=== PATIENT | male | born 1950 | race Caucasian/White ===

== ENCOUNTER 2019-03-01 16:14 | Inpatient (IN) ==
--- NOTE | 2019-03-01 16:58 | Emergency Department Note ---
Disposition Clinical Impression: CHF (congestive heart failure) Qualifiers: Heart failure type: unspecified Heart failure chronicity: unspecified Qualified Code(s): I50.9 - Heart failure, unspecified Disposition: Admitted As Inpatient Condition: Good Referrals: Richard Tran DO [Primary Care Provider] - Forms: ED Satisfaction Letter Time of Disposition: 20:00 SOB HPI - General Chief Complaint: ED Shortness of Breath/Dyspnea Stated Complaint: sob Source: patient, family Limitations: no limitations Nursing Notes Reviewed: Yes Vital Signs Reviewed: Yes - History of Present Illness This is a 69 year-old male with history of HTN, IDDM, hypothyroidism, AF s/p ablation, and morbid obesity. He presents with shortness of breath, worse with exertion, for the past month, worsening for the past week. He says that he feels short of breath with minimal ambulation and sometimes has mild chest tightness with exertion. He also reports worsening bilateral lower extremity edema. He denies any associated fever or cough. He claims compliance with his Coumadin. Denies history of CHF, COPD, tobacco use. No home O2 use. Was 81% on RA in triage, now 100% on 4L. Pt Subjective Complaint: shortness of breath Onset (ago): month(s) (1) Severity: moderate Consistency/Duration: constant, gradually worsening Improves with: rest Worsens with: lying flat, exertion Associated symptoms: Reports: denies other symptoms. Denies: pain with inspiration, fever, cough, lower extremity pain, palpitations Treatment prior to arrival: none Cough present: No - Related Data Home oxygen amount: none Home Medications Medication Instructions Recorded Confirmed Amiodarone 200 mg PO DAILY 02/13/18 03/01/19 Atorvastatin 40 mg PO DAILY 02/13/18 03/01/19 Claritin 10 mg PO DAILY 02/13/18 03/01/19 Coumadin 3 mg PO DAILY 02/13/18 03/01/19 Insulin NPH Human Isophane 100 unit SQ BID 02/13/18 03/01/19 [Novolin N] Levothyroxine [Synthroid] 75 mcg PO DAILY 02/13/18 03/01/19 Losartan Potassium 100 mg PO DAILY 02/13/18 03/01/19 Metoprolol [Lopressor] 25 mg PO BID 02/13/18 03/01/19 Sertraline 150 mg PO DAILY 02/13/18 03/01/19 Coumadin 1.5 mg PO DAILY 03/01/19 03/01/19 Allergies Allergy/AdvReac Type Severity Reaction Status Date / Time cefazolin [From Ancef] Allergy Hives Verified 03/01/19 20:35 rosuvastatin [From Crestor] Allergy Hives Verified 03/01/19 20:35 Sulfa (Sulfonamide Allergy Hives Verified 03/01/19 20:35 Antibiotics) All systems ED: reviewed and negative except as stated. Constitutional: Denies: fever Cardiovascular: Reports: chest pain, dyspnea on exertion, edema. Denies: palpitations Respiratory: Reports: dyspnea Gastrointestinal: Denies: abdominal pain, nausea, vomiting Musculoskeletal: Denies: back pain, neck pain Neurological: Denies: headache, weakness, numbness Past Medical History - Past Medical History Medical history: Reports: atrial fibrillation, diabetes, hyperlipidemia, hypertension Surgical history: Reports: cholecystectomy Psychiatric history: Reports: no psych history - Social History Smoking Status: Never smoker Smokeless Tobacco Status: No Alcohol use: Reports: none Drug use: Reports: none Physical Exam - General Limitations: no limitations General appearance: alert, in no apparent distress - Head Head exam: atraumatic, normocephalic - Eye Eye exam: Present: normal appearance - ENT ENT exam: normal exam - Neck Neck exam: Present: normal inspection - Chest Chest inspection: Present: normal inspection - Respiratory Respiratory exam: Present: normal lung sounds bilaterally. Absent: respiratory distress - Cardiovascular Cardiovascular exam: Present: regular rate, normal rhythm, normal heart sounds - Abdominal Exam Abdominal exam: Present: soft, Non-Tender. Absent: distention - Extremities Exam Extremities exam: Present: pedal edema, other (moderate pitting bilateral lower extremity edema). Absent: calf tenderness - Neurological Exam Neurological exam: Present: alert, oriented X3 - Psychiatric Psychiatric exam: Present: normal affect - Skin Skin exam: Present: warm, dry, intact Course - Reevaluation(s) Reevaluation #1: Patient resting comfortably. Updated patient on test results and plans. Time: 21:21 - Consultations Consultation #1: Reviewed case with Dr. Green and patient accepted for admission. Time: 22:21 Vital Signs Temperature 97.8 F 03/01/19 16:27 Pulse Rate 51 03/01/19 16:27 Respiratory Rate 18 03/01/19 16:27 Blood Pressure 127/68 03/01/19 16:27 O2 Sat by Pulse Oximetry 81 03/01/19 16:27 Temperature 97.8 F 03/01/19 16:27 Pulse Rate 67 03/01/19 21:39 Respiratory Rate 18 03/01/19 21:39 Blood Pressure 145/60 03/01/19 21:39 O2 Sat by Pulse Oximetry 100 03/01/19 21:39 Oxygen Delivery Oxygen Delivery Nasal Cannula Shortness of Breath/Dyspnea - MDM Narrative Medical decision making narrative: This is a 69 year-old male with history of HTN and DM who presents with exertional dyspnea, gradually worsening for weeks, with worsening bilateral lower extremity edema. Occasional chest tightness with exertion. Exam significant for bilateral lower extremity edema. CXR showed CMG, edema, BNP mildly elevated. Suspect symptoms represent CHF (not a previous diagnosis), and I feel that patient would benefit from admission for echo, medical optimization. - Lab Data Lab results reviewed: Yes I reviewed the patient's lab results. Lab results narrative: INR therapeutic. BNP mildly elevated. Result diagrams: 03/01/19 17:48 03/01/19 17:48 Lab Results 03/01/19 03/01/19 03/01/19 Range/Units 17:48 17:48 17:48 WBC 8.4 (4.3-11.1) K/mcL RBC 4.48 (4.19-5.50) M/mcL Hgb 11.3 L (12.9-16.9) g/dL Hct 37.9 (37.5-50.1) % MCV 84.6 (83.0-100.0) fL MCH 25.2 L (28.0-33.3) pg MCHC 29.8 L (31.6-35.5) g/dL RDW 15.4 H (11.5-14.5) % Plt Count 220 (140-400) K/mcL MPV 9.1 L (9.4-12.4) fL Immature Gran % 1.0 (0-4) % Seg Neutrophils % 80.5 % Lymphocytes % 9.8 % Monocytes % 7.1 % Eosinophils % 1.1 % Basophils % 0.5 % Neutrophils # 6.7 (1.6-8.9) K/mcL Lymphocytes # 0.8 (0.6-4.6) K/mcL Monocytes # 0.6 (0.0-1.3) K/mcL Eosinophils # 0.1 (0.0-0.6) K/mcL Basophils # 0.0 (0.0-0.2) K/mcL PT 34.0 H (9.4-12.1) Seconds INR 3.0 Sodium 137 (136-145) mEq/L Potassium 4.9 (3.5-5.1) mEq/L Chloride 101 (98-107) mEq/L Carbon Dioxide 27 (23-29) mEq/L BUN 22 (8-23) mg/dL Creatinine 1.06 (0.70-1.30) mg/dL Est GFR ( Amer) > 60 (> 60) Est GFR (Non-Af Amer) > 60 (> 60) BUN/Creatinine Ratio 21 (6-26) Glucose 141 H (70-105) mg/dL Calculated Osmolality 290 (280-300) Calcium 8.5 L (8.6-10.3) mg/dL Troponin I < 0.03 (< 0.04) ng/mL B-Natriuretic Peptide (Less than 100) pg/mL 03/01/19 Range/Units 17:48 WBC (4.3-11.1) K/mcL RBC (4.19-5.50) M/mcL Hgb (12.9-16.9) g/dL Hct (37.5-50.1) % MCV (83.0-100.0) fL MCH (28.0-33.3) pg MCHC (31.6-35.5) g/dL RDW (11.5-14.5) % Plt Count (140-400) K/mcL MPV (9.4-12.4) fL Immature Gran % (0-4) % Seg Neutrophils % % Lymphocytes % % Monocytes % % Eosinophils % % Basophils % % Neutrophils # (1.6-8.9) K/mcL Lymphocytes # (0.6-4.6) K/mcL Monocytes # (0.0-1.3) K/mcL Eosinophils # (0.0-0.6) K/mcL Basophils # (0.0-0.2) K/mcL PT (9.4-12.1) Seconds INR Sodium (136-145) mEq/L Potassium (3.5-5.1) mEq/L Chloride (98-107) mEq/L Carbon Dioxide (23-29) mEq/L BUN (8-23) mg/dL Creatinine (0.70-1.30) mg/dL Est GFR ( Amer) (> 60) Est GFR (Non-Af Amer) (> 60) BUN/Creatinine Ratio (6-26) Glucose (70-105) mg/dL Calculated Osmolality (280-300) Calcium (8.6-10.3) mg/dL Troponin I (< 0.04) ng/mL B-Natriuretic Peptide 106 H (Less than 100) pg/mL - Radiology Data Radiology results reviewed: Yes I reviewed the patient's radiology results. CXR - CMG, edema. Likely CHF (vs. atx, PNA, etc.) - EKG Data EKG attestation: Yes I reviewed and interpreted this EKG. EKG results narrative: SR at 76. RBBB, LAFB. LAD. No significant ischemic ST/T abnormalities. EKG shows normal: Reports: sinus rhythm Rate: Reports: normal Rhythm: Reports: NSR
[2019-03-01 18:15] LABS: Basophils % 0.5 %; Eosinophils # 0.1 K/mcL (0.0-0.6); Eosinophils % 1.1 %; Hematocrit 37.9 % (37.5-50.1); Hemoglobin 11.3 g/dL (12.9-16.9); Lymphocytes # 0.8 K/mcL (0.6-4.6); Lymphocytes % 9.8 %; Mean Corpuscular HGB Conc 29.8 g/dL (31.6-35.5); Mean Corpuscular Hemoglobin 25.2 pg (28.0-33.3); Mean Corpuscular Volume 84.6 fL (83.0-100.0); Mean Platelet Volume 9.1 fL (9.4-12.4); Monocytes # 0.6 K/mcL (0.0-1.3); Monocytes % 7.1 %; Neutrophils # 6.7 K/mcL (1.6-8.9); Platelet Count 220 K/mcL (140-400); Red Blood Count 4.48 M/mcL (4.19-5.50); Red Cell Distribution Width 15.4 % (11.5-14.5); Segmented Neutrophils % 80.5 %; White Blood Count 8.4 K/mcL (4.3-11.1)
[2019-03-01 19:07] LABS: BUN/Creatinine Ratio 21 (6-26); Blood Urea Nitrogen 22 mg/dL (8-23); Calcium 8.5 mg/dL (8.6-10.3); Carbon Dioxide 27 mEq/L (23-29); Chloride 101 mEq/L (98-107); Glucose 141 mg/dL (70-105); Osmolality,Calculated 290 (280-300); Potassium 4.9 mEq/L (3.5-5.1); Sodium 137 mEq/L (136-145); Troponin I < 0.03 ng/mL (< 0.04); eGFR For African Americans > 60 (> 60); eGFR For Non-African Americans > 60 (> 60)
[2019-03-01] MEDS ORDERED: Furosemide 40 MG/4 ML VIAL IVP ONE (19:58)
[2019-03-01] MEDS ORDERED: Dextrose Gel 15 GM/37.5 ML TUBE PO PRN ×2 (23:01)
[2019-03-01] MEDS ORDERED: *HR* Dextrose 50 % in Water (Syg) 50 ML SYRINGE IVP PRN (23:01)
[2019-03-01] MEDS ORDERED: D5% in Water 1,000 ML IVC PRN (23:01)
--- NOTE | 2019-03-02 01:03 | Internal Med History&Physical ---
Date of Encounter: 03/02/19 Time of Encounter: 00:38 Internal Medicine - H&P: HPI Chief complaint: SOB History of present illness: Mr. Cruz is a 69 year old male hypertension, IDDM, hypothyroidism, morbid obesity and atrial fibrillation status post ablation who presents to the ED with complaints of shortness of breath. Patient states he has been having progressive shortness of breath for the past month or so. Patient decided to come in for evaluation at the request of his daughter but did state that he noted his shortness of breath was worse today. His dyspnea is primarily on exertion noting that walking about 35 feet causes him to get short of breath and increases his heart rate. Patient is not on oxygen. Denies any cough, fever or chills. Denies any orthopnea or PND. Does endorse some swelling in his legs. No reports of chest pain, however, chest tightness was documented in ED note. Patient is a nonsmoker. Does not drink. He has a history of atrial fibrillation status post ablation currently on amiodarone which he states he has been taking for 12 years. He follows with [facility] cardiology every 6 months. Patient denies any history of blood clots. No reports of pleuritic chest pain. Family history of heart disease. On initial assessment patient was afebrile, hemodynamically stable. O2 saturations were 81% on room air. Oxygen bumped up to 100% off to receiving 2 L. Laboratory workup was relatively unremarkable. Negative troponin. BNP 106. EKG shows sinus rhythm with a QRS of 167, right bundle branch block and left anterior fascicular block. Chest x-ray showed enlarged cardiomediastinal silhouette with findings suggestive of pulmonary interstitial edema. Patient received a one-time dose of Lasix 40 mg in the ED. We will admit for further workup of possible CHF exacerbation. Patient will be full code for this admission. Past Med Surg Social Fam HX - Past Medical History Medical history: atrial fibrillation, diabetes, hyperlipidemia, hypertension Additional medical history: Thyroid issues. Psychiatric history: no psych history - Past Surgical History Surgical History: cholecystectomy Additional surgical history: Evacuation of abd hematoma, left thumb revision, coardiac ablation. - Social History Smoking Status: Never smoker Smokeless Tobacco Status: No Alcohol use: none Drug use: none - Family History Mother Adopted: No Family Member Ethnicity: Non- Living Status: Hx Family Cardiac Disorders: Yes Hx Family Respiratory Disorders: Yes Hx Family Cancer: No Hx Family GI Disorders: No Hx Family Endocrine Disorder: No Hx Family Neuromuscular Disorders: No Hx Family Neurologic Disorders: No Hx Family HEENT Disorders: No Hx Family Autoimmune Disorders: No Father Living Status: Still Living Hx Family Cardiac Disorders: Yes Hx Family Respiratory Disorders: No Hx Family Cancer: No Hx Family GI Disorders: Yes Hx Family Endocrine Disorder: No Hx Family Neuromuscular Disorders: No Hx Family Neurologic Disorders: No Hx Family HEENT Disorders: No Hx Family Autoimmune Disorders: No Internal Medicine - H&P: Meds Amiodarone 200 mg PO DAILY 02/13/18 [History] Atorvastatin 40 mg PO DAILY 02/13/18 [History] Claritin 10 mg PO DAILY 02/13/18 [History] Coumadin 3 mg PO DAILY 02/13/18 [History] Insulin NPH Human Isophane [Novolin N] 100 unit SQ BID 02/13/18 [History] Levothyroxine [Synthroid] 75 mcg PO DAILY 02/13/18 [History] Losartan Potassium 100 mg PO DAILY 02/13/18 [History] Metoprolol [Lopressor] 25 mg PO BID 02/13/18 [History] Sertraline 150 mg PO DAILY 02/13/18 [History] Coumadin 1.5 mg PO DAILY 03/01/19 [History] Allergy/AdvReac Type Severity Reaction Status Date / Time cefazolin [From Ancef] Allergy Hives Verified 03/01/19 20:35 rosuvastatin [From Crestor] Allergy Hives Verified 03/01/19 20:35 Sulfa (Sulfonamide Allergy Hives Verified 03/01/19 20:35 Antibiotics) All Systems PM: A 10-system review of systems was performed and is negative for pertinent findings except as documented above in the HPI. - Constitutional Constitutional: no chills, no fever(s), no night sweats - EENT Eyes: no change in vision, no discharge, no pain, no photophobia Ears: no ear discharge, no ear pain, no tinnitus Nose, mouth and throat: no dysphagia, no nasal discharge, no neck pain, no sore throat - Cardiovascular Cardiovascular ROS IM: no chest pain, no diaphoresis, no dyspnea, no lightheadedness, no palpitations, no syncope - Respiratory Respiratory: no cough, no dyspnea, no wheezing, no excessive phlegm production - Gastrointestinal Gastrointestinal: no abdominal pain, no diarrhea, no hematemesis, no hematochezia, no melena, no nausea, no vomiting - Musculoskeletal Musculoskeletal ROS IM: no numbness, no tingling - Integumentary Integumentary IM: no rash, no unusual bruising - Neurological Neurological ROS: no confusion, no convulsions, no focal weakness, no numbness, no tingling, no tremor(s) - Hematologic/Lymphatic Hematologic/Lymphatic: no easy bruising - Constitutional Vitals: Temp Pulse Resp BP Pulse Ox 98.1 F 64 15 145/70 90 03/01/19 23:50 03/01/19 23:50 03/01/19 23:50 03/01/19 23:50 03/01/19 23:50 Exam: General: Alert and oriented 3 lying in bed in no acute distress Skin: Evidence of venous stasis on the lower extremities HEENT:EOM, pupils equal, round and reactive. Cardiovascular:Normal S1 & S2, 3/6 systolic murmur best appreciated in the second right intercostal space Lungs: Bibasilar crackles appreciated Abdomen:Soft, non-tender, no rigidity. Extremities:No deformity, trace lower extremity edema bilaterally. Neurological:Normal cognition and motor skills. Pulses:Carotid and radial pulses normal +2. Rest of the physical exam is non contributory Internal Med - H&P Results - Labs CBC & Chem 7: 03/02/19 00:47 03/02/19 00:47 Labs: Short CBC 03/01/19 Range/Units 17:48 WBC 8.4 (4.3-11.1) K/mcL Hgb 11.3 L (12.9-16.9) g/dL Hct 37.9 (37.5-50.1) % Plt Count 220 (140-400) K/mcL Neutrophils # 6.7 (1.6-8.9) K/mcL BMP 03/01/19 17:48 Sodium 137 Potassium 4.9 Chloride 101 Carbon Dioxide 27 BUN 22 Creatinine 1.06 Glucose 141 H Calcium 8.5 L Cardiac Enzymes 03/01/19 Range/Units 17:48 Troponin I < 0.03 (< 0.04) ng/mL - Impressions ITS Impressions Chest X-Ray 03/01/19 16:53 IMPRESSION: Enlarged cardiomediastinal silhouette with findings suggestive of pulmonary interstitial edema. Correlation with volume status is recommended. Bibasilar pulmonary opacities may represent combination of atelectasis and/or edema. Early pneumonia or aspiration is not excluded. Recommend short interval follow-up chest radiograph. D/ / 03/01/2019 17:16:17 Ochoa Obando MD / Gerri Garibay Interpreting Provider: Ochoa Obando MD - Assessment and Plan (1) Shortness of breath Current Visit: Yes Status: Deleted Assessment and plan: Patient presenting with progressive shortness of breath on exertion. Found to have a O2 saturation of 81% on room air which increased to 100% on 4 L. Patient currently on 2 saturating in the mid 90s. Laboratory workup notable for a mildly elevated BNP in the setting of morbid obesity. EKG showing sinus rhythm with evidence of bifascicular block. Patient did not endorse significant history of chest pain. Initial troponin negative. Chest x-ray concerning for cardiomegaly and pulmonary vascular congestion. Bibasilar crackles appreciated on lung examination with trace lower extremity edema. Murmur was appreciated on cardiac exam. Etiology possibly multifactorial. Differential includes new ons et CHF exacerbation. Valvulopathy given murmur. Underlying CAD. Given patient's body habitus cannot this exclude obesity hypoventilation syndrome. Furthermore, patient has been on amiodarone for 12 years and therefore amiodarone-induced pulmonary toxicity cannot be discounted. Patient however d oes appear to be followed up closely at [facility]. Patient received one-time dose of Lasix 40 mg IV push. He reports that he is feeling somewhat better after getting up and going to the bathroom without any issues. -Continue O2 support -Trend troponin -Continue management and workup for possible new onset CHF exacerbation -Echocardiogram for CHF and assessment of valvular disease given patient's murmu r -Consider high-resolution CT scan of the chest for evaluation of lung parenchyma in the setting of chronic amiodarone use (2) CHF (congestive heart failure) Current Visit: Yes Status: Acute Assessment and plan: Concern for new onset congestive heart failure given patient's history and objective findings. -Continue strict I's and O's; daily weights -Fluid restrict to 1.5 L per day -We will continue with IV Lasix 20 mg twice a day and monitor kidney function -Echocardiogram -Consider cardiology consult Qualifiers: Heart failure type: unspecified Heart failure chronicity: unspecified Qualified Code(s): I50.9 - Heart failure, unspecified (3) Type 2 diabetes mellitus Current Visit: Yes Status: Acute Assessment and plan: Blood glucose checks. Diabetic diet. Sliding scale insulin plus basal dose. Qualifiers: Diabetes mellitus superintendent terminal insulin use: with superintendent terminal use Diabetes mellitus complication status: without complication Qualified Code(s): E11.9 - Type 2 diabetes mellitus without complications; Z79.4 - USP (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 (4) Status post ablation of atrial fibrillation Current Visit: Yes Status: Acute Assessment and plan: History of atrial fibrillation status post ablation currently on amiodarone for rhythm control and warfarin for anticoagulation. -Continue beta izabela and amiodarone for now. -Continue warfarin with pharmacy to dose. - Time Spent With Patient Total time spent is greater than 50% in coordination of care (as documented) at patient's floor/unit and/or counseling patient:
[2019-03-02] MEDS: Insulin LISPRO 300 UNITS/3 ML VIAL SQ SCH ×4 (01:05→17:53)
[2019-03-02] MEDS: Insulin DETEMIR 100 UNIT/ML X5UNITS SQ SCH ×2 (01:19→20:48)
[2019-03-02 01:20] LABS: Basophils % 0.4 %; Eosinophils # 0.1 K/mcL (0.0-0.6); Eosinophils % 1.3 %; Hematocrit 39.8 % (37.5-50.1); Hemoglobin 11.8 g/dL (12.9-16.9); Immature Granulocytes % 0.8 % (0-4); Lymphocytes # 0.9 K/mcL (0.6-4.6); Lymphocytes % 9.8 %; Mean Corpuscular HGB Conc 29.6 g/dL (31.6-35.5); Mean Corpuscular Hemoglobin 25.4 pg (28.0-33.3); Mean Corpuscular Volume 85.6 fL (83.0-100.0); Mean Platelet Volume 9.1 fL (9.4-12.4); Monocytes # 0.6 K/mcL (0.0-1.3); Monocytes % 6.7 %; Neutrophils # 7.3 K/mcL (1.6-8.9); Platelet Count 227 K/mcL (140-400); Red Blood Count 4.65 M/mcL (4.19-5.50); Red Cell Distribution Width 15.4 % (11.5-14.5)
[2019-03-02 01:27] LABS: Prothrombin Time 34.1 Seconds (9.4-12.1)
[2019-03-02] MEDS ORDERED: *HR* Heparin 5,000 UNIT/ML VIAL SQ SCH (01:30)
[2019-03-02 02:33] LABS: Alanine Aminotransferase 12 Units/L (7-52); Albumin 3.6 g/dL (3.5-5.7); Albumin/Globulin Ratio 1.1 (1.1-2.2); Alkaline Phosphatase 81 Units/L (34-104); Aspartate Amino Transferase 15 Units/L (13-39); BUN/Creatinine Ratio 20 (6-26); Bilirubin,Total 0.8 mg/dL (0.3-1.0); Blood Urea Nitrogen 21 mg/dL (8-23); Calcium 8.9 mg/dL (8.6-10.3); Carbon Dioxide 32 mEq/L (23-29); Chloride 98 mEq/L (98-107); Chol/HDL Ratio 2.7 (0-4.9); Cholesterol 89 mg/dL (< 200); Globulin 3.3 g/dL (2.4-3.5); Glucose 145 mg/dL (70-105); HDL Cholesterol 33 mg/dL (40-59); LDL Cholesterol,Calculated 41 mg/dL (0-99); Magnesium 1.6 mg/dL (1.6-2.6); Osmolality,Calculated 294 (280-300); Potassium 4.5 mEq/L (3.5-5.1); Sodium 139 mEq/L (136-145); Thyroid Stimulating Hormone 3.711 mcIU/mL (0.340-5.600); Total Protein 6.9 g/dL (6.4-8.9); Triglycerides 77 mg/dL (< 150); eGFR For African Americans > 60 (> 60); eGFR For Non-African Americans > 60 (> 60)
[2019-03-02 07:15] LABS: Prothrombin Time 33.7 Seconds (9.4-12.1)
[2019-03-02] MEDS: *HR* Amiodarone 200 MG TABLET PO SCH (09:01)
[2019-03-02] MEDS: Furosemide 20 MG/2 ML VIAL IVP SCH ×2 (09:02→17:53)
[2019-03-02] MEDS ORDERED: Perflutren Lipid Microsphere 1.3 ML in 0.9 % Sodium Chloride 8.7 ML IVP ONE (11:46)
--- NOTE | 2019-03-02 13:15 | Internal Med Progress Note ---
Hospitalist Progress Note - Encounter Date of Encounter: 03/02/19 Time of Encounter: 09:25 - Subjective Interval History: No events overnight. Patient had no chest pain, palpitation or shortness of breath. Patient denied fever or chills or night sweats. Patient has no nausea/vomiting or abdominal pain - Exam Vitals: Temp Pulse Resp BP Pulse Ox 97.9 F 54 17 130/55 94 03/02/19 11:23 03/02/19 11:23 03/02/19 11:23 03/02/19 11:23 03/02/19 11:23 Exam: General: Alert and oriented 3 lying in bed in no acute distress Skin: Evidence of venous stasis on the lower extremities with skin discoloration HEENT:EOM, pupils equal, round and reactive. Cardiovascular:Normal S1 & S2, systolic murmur higher on the left second sternal border. Lungs: Bibasilar crackles. Abdomen:Soft, non-tender, no rigidity. Extremities:No deformity, trace lower extremity edema bilaterally. Neurological:Normal cognition and motor skills. Pulses:Carotid and radial pulses normal +2. Rest of the physical exam is non contributory - Assessment and Plan (1) CHF (congestive heart failure) Current Visit: Yes Status: Acute (2) Type 2 diabetes mellitus Current Visit: Yes Status: Acute (3) Status post ablation of atrial fibrillation Current Visit: Yes Status: Acute (4) Morbid obesity with BMI of 50.0-59.9, adult Current Visit: Yes Status: Acute (5) DVT prophylaxis Current Visit: Yes Status: Acute - Summary of Assessment and Plan Summary of Assessment and Plan: 69-year-old female with history of IDDM, hypothyroidism, HTN, morbid obesity, atrial fibrillation status post ablation on amiodarone and Coumadin who came into the hospital with a few days of dyspnea mainly on exertion. Patient was found to be in heart failure and pulmonary edema at presentation. His symptoms are managed as following: Acute decompensated heart failure: - likely from diet non-complaince as he eats a lot of salt. less likely due to underlying arrhythmia. - EKG, sinus rhythm, RBBB, LAFB. Troponin 2 negative. BNP 106. - He was started on Lasix 20 mg IV twice a day with significant improvement in his symptoms. - Echo is pending, cardiology was consulted, monitor I/O, daily weight, continue cardiac diet. Hx of atrial fibrillation s/p ablation: - On amiodarone and Lopressor for rate control - On Coumadin for anticoagulation. INR is therapeutic - Continue above medication IDDM: - Checked with pharmacy and then shortly about his home doses. As per ou tpatient records, he is on 70/30 regimen with 55 units in the morning and 35 units at night. Pharmacy committed to keep doses at today's and managed on daily basis. - ADA, bgm TID ACHS. Morbid obesity with BMI of 54: - Lifestyle modification including diet was discussed with the patient. Hypothyroidism: Continue levothyroxine HTN: Continue losartan DVT prophylaxis: On Coumadin Diet: Cardiac diet, diabetic diet Disposition: Inpatient, anticipating discharge on Monday - Time Spent with Patient Total time spent is greater than 50% in coordination of care (as documented) at patient's floor/unit and/or counseling patient: Plan of Care Discussed with: patient Internal Medicine: Result - Labs CBC & Chem 7: 03/02/19 00:47 03/02/19 00:47 Labs: Short CBC 03/01/19 03/02/19 Range/Units 17:48 00:47 WBC 8.4 9.0 (4.3-11.1) K/mcL Hgb 11.3 L 11.8 L (12.9-16.9) g/dL Hct 37.9 39.8 (37.5-50.1) % Plt Count 220 227 (140-400) K/mcL Neutrophils # 6.7 7.3 (1.6-8.9) K/mcL BMP 03/01/19 03/02/19 17:48 00:47 Sodium 137 139 Potassium 4.9 4.5 Chloride 101 98 Carbon Dioxide 27 32 H BUN 22 21 Creatinine 1.06 1.05 Glucose 141 H 145 H Calcium 8.5 L 8.9 Cardiac Enzymes 03/01/19 03/02/19 Range/Units 17:48 00:47 Troponin I < 0.03 < 0.03 (< 0.04) ng/mL Liver Function 03/02/19 Range/Units 00:47 Total Bilirubin 0.8 (0.3-1.0) mg/dL AST 15 (13-39) Units/L ALT 12 (7-52) Units/L Alkaline Phosphatase 81 (34-104) Units/L Albumin 3.6 (3.5-5.7) g/dL - ABG Interpretation ABG results: PT/INR, D-dimer PT 33.7 Seconds (9.4-12.1) H 03/02/19 06:39 - Impressions Impressions Chest X-Ray 03/01/19 16:53 IMPRESSION: Enlarged cardiomediastinal silhouette with findings suggestive of pulmonary interstitial edema. Correlation with volume status is recommended. Bibasilar pulmonary opacities may represent combination of atelectasis and/or edema. Early pneumonia or aspiration is not excluded. Recommend short interval follow-up chest radiograph. D/ / 03/01/2019 17:16:17 Ochoa Obando MD / Gerri Garibay Interpreting Provider: Ochoa Obando MD Consult Discharge Plan - Plan Referrals: Richard Tran DO [Primary Care Provider] - _ (1) CHF (congestive heart failure) Qualifiers: Heart failure type: unspecified Heart failure chronicity: unspecified Qualified Code(s): I50.9 - Heart failure, unspecified (2) Type 2 diabetes mellitus Qualifiers: Diabetes mellitus supervisor long goods insulin use: with shelter use Diabetes mellitus complication status: without complication Qualified Code(s): E11.9 - Type 2 diabetes mellitus without complications; Z79.4 - long term acute care registered nurse (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
--- NOTE | 2019-03-02 17:01 | Cardiology Consult Note ---
<Mahnaz Kirk - Last Filed: 03/02/19 16:57> Date of Encounter: 03/02/19 Time of Encounter: 14:00 Assessment and Plan (1) Diastolic CHF Current Visit: Yes Status: Acute Per cardiology: -Reports progressive shortness of breath at home. -Chest x-ray with pulmonary edema. -BNP 106, however suspect low due to obesity. -ON IV lasix, currently net negative 900ml. -Remains volume overloaded on exam and still requiring O2, not normally on at home. -TTE with LVEF preserved, no visualized wall motion abnormalities noted. -Agree with IV diuresis. -Strict i/os, fluid restriction, daily weights. -CHF education reviewed with patient. Qualifiers: Heart failure chronicity: acute Qualified Code(s): I50.31 - Acute diastolic (congestive) heart failure (2) PAF (paroxysmal atrial fibrillation) Current Visit: Yes Status: Acute Per cardiology: -Known PAF s/p ablation. -Follows with [facility]. -On amiodarone, BB, and coumadin for anticoagulation. -SR per ECG. -Continue current medical regimen. 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 Discussion w patient/family: The assessment and plan as outlined above was discussed with the patient and/or family members who expressed understanding and agreement. All questions were answered. Thank you for involving us in the care of your patient. Please call with any questions. Discussed and reviewed with . History of Present Illness Consult date: 03/02/19 Requesting physician: Taras Burgess Consult reason: a.fib, CHF Chief complaint: shortness of breath History of present illness: Mr. Cruz is a 69 year old male with a relevant past medical history of a.fib s/p ablation follows with [facility] Cardiology, DM, HTN, thyroid disease, DENNIS, obesity, GERD, who presented to [facility] with complaints of progressive shortness of breath for one month. Patient states symptoms became so severe, he was unable to walk to bathroom. Denies weight gain. Reports chronic lower extremity edema. Denies palpitations, fluttering. Denies chest pain. Patient noted to have pulmonary edema on chest x-ray, was given IV lasix. Patient reports current symptom improvement, however not back at baseline. Still currently requiring O2, not normally on at home. Past Med Surg Social Fam HX - Past Medical History Attestation: Yes The following information was validated with the patient. Source: patient, old records reviewed Medical history: atrial fibrillation, diabetes, hyperlipidemia, hypertension Additional medical history: Thyroid issues, left thumb amputation Psychiatric history: no psych history - Past Surgical History Surgical History: cholecystectomy Additional surgical history: Evacuation of abd hematoma, left thumb revision, coardiac ablation. - Social History Smoking Status: Never smoker Smokeless Tobacco Status: No Alcohol use: none Drug use: none - Family History Mother Adopted: No Family Member Ethnicity: Non- Living Status: Hx Family Cardiac Disorders: Yes Hx Family Respiratory Disorders: Yes Hx Family Cancer: No Hx Family GI Disorders: No Hx Family Endocrine Disorder: No Hx Family Neuromuscular Disorders: No Hx Family Neurologic Disorders: No Hx Family HEENT Disorders: No Hx Family Autoimmune Disorders: No Father Living Status: Still Living Hx Family Cardiac Disorders: Yes Hx Family Respiratory Disorders: No Hx Family Cancer: No Hx Family GI Disorders: Yes Hx Family Endocrine Disorder: No Hx Family Neuromuscular Disorders: No Hx Family Neurologic Disorders: No Hx Family HEENT Disorders: No Hx Family Autoimmune Disorders: No Medications and Allergies Amiodarone 200 mg PO DAILY 02/13/18 [History] Atorvastatin 40 mg PO DAILY 02/13/18 [History] Claritin 10 mg PO DAILY 02/13/18 [History] Coumadin 3 mg PO DAILY 02/13/18 [History] Insulin NPH Human Isophane [Novolin N] 100 unit SQ BID 02/13/18 [History] Levothyroxine [Synthroid] 75 mcg PO DAILY 02/13/18 [History] Losartan Potassium 100 mg PO DAILY 02/13/18 [History] Metoprolol [Lopressor] 25 mg PO BID 02/13/18 [History] Sertraline 150 mg PO DAILY 02/13/18 [History] Coumadin 1.5 mg PO DAILY 03/01/19 [History] Allergy/AdvReac Type Severity Reaction Status Date / Time cefazolin [From Ancef] Allergy Hives Verified 03/01/19 20:35 rosuvastatin [From Crestor] Allergy Hives Verified 03/01/19 20:35 Sulfa (Sulfonamide Allergy Hives Verified 03/01/19 20:35 Antibiotics) All Systems Review: The remainder of the systems were reviewed and are negative - Cardiovascular Cardiovascular: as per HPI, dyspnea at rest, dyspnea on exertion Physical Examination Vital Signs, Last 4 Hours Temp Pulse Resp BP Pulse Ox 03/02/19 16:48 98 F 61 16 119/45 96 General: Conversant, No Apparent Distress HEENT: Atraumatic, Normocephaly, Mucus Membranes Moist Neck: No JVD, Normal carotid pulses Cardiac: Reg Rate and Rhythm, Normal S1 and S2, No Murmur Lungs: Other (Lung sounds diminished throughout. ) Neuro: Alert and responsive, No focal deficits noted Abdomen: Soft, Non-Tender Skin: No rashes noted on visualized skin Musculoskeletal: No Chest Wall Tenderness Extremities: No Clubbing, No Cyanosis, Normal Pulses, Other (Moderate lower extremity edema noted. ) Results 03/02/19 00:47 03/02/19 00:47 Lab Results Impressions Chest X-Ray 03/01/19 16:53 IMPRESSION: Enlarged cardiomediastinal silhouette with findings suggestive of pulmonary interstitial edema. Correlation with volume status is recommended. Bibasilar pulmonary opacities may represent combination of atelectasis and/or edema. Early pneumonia or aspiration is not excluded. Recommend short interval follow-up chest radiograph. D/ / 03/01/2019 17:16:17 Ochoa Obando MD / Gerri Garibay Interpreting Provider: Ochoa Obando MD Echocardiogram 03/01/19 23:00 Impressions: Technically sub-optimal due to body habitus. Definity echo contrast was used. LVEF 60%. Indeterminate diastolic function. Right ventricular structure and function not well visualized. Mild aortic stenosis by Doppler. Mild mitral regurgitation. No pulmonary hypertension by TR signal obtained. Left Ventricular Wall Motion: Rest Echo Findings The mid inferior lateral and basal inferior lateral rowley were not visualized. All other wall segments showed normal motion. Findings: Study Quality * Technically sub-optimal due to body habitus. ECG Findings * Atrial fibrillation. Left Ventricle * Definity echo contrast was used. * Indeterminate diastolic function. * LVEF 60%. * LV chamber size and wall thickness appear grossly normal. Right Ventricle * Right ventricular structure and function not well visualized. Left Atrium * Moderately dilated left atrium. Right Atrium * Normal right atrial size. Aortic Valve * No aortic regurgitation. * Aortic valve not well visualized. * Mild aortic stenosis by Doppler. Mitral Valve * Mitral valve not well visualized. * No mitral stenosis. * Mild mitral regurgitation. * Mild mitral annular calcification Tricuspid Valve * Tricuspid valve not well visualized. * Trace tricuspid regurgitation. Pulmonic Valve * Pulmonic valve is not well visualized. * No pulmonic stenosis. * No pulmonic regurgitation. Pulmonary Artery * Pulmonary artery not well visualized. Aorta * Not visualized. Pericardium * There is no pericardial effusion present. Interatrial Septum * Interatrial septum not well evaluated. IVC * The IVC is not well evaluated. Active Medications Amiodarone HCl (Cordarone) 200 mg PO DAILY [facility] Stop: 09/01/19 09:01 Last Admin: 03/02/19 09:01 Dose: 200 mg Documented by: Atorvastatin Calcium (Lipitor) 40 mg PO DAILY [facility] Stop: 09/01/19 09:01 Last Admin: 03/02/19 09:01 Dose: 40 mg Documented by: Dextrose/Water (Dextrose 50% (Syg)) 25 ml IVP AD PRN PRN Reason: Hypoglycemia Stop: 08/31/19 23:02 Furosemide (Lasix) 20 mg IVP BIDDIURETIC [facility] Stop: 09/01/19 08:01 Last Admin: 03/02/19 09:02 Dose: 20 mg Documented by: Glucagon (Glucagen) 1 mg IM ONCE PRN PRN Reason: Hypoglycemia Stop: 08/31/19 23:02 Glucose (Gluctose) 15 gm PO ONCE PRN PRN Reason: Hypoglycemia Stop: 08/31/19 23:02 Glucose (Gluctose) 30 gm PO ONCE PRN PRN Reason: Hypoglycemia Stop: 08/31/19 23:02 Dextrose (Dextrose 5%) 1,000 mls @ 100 mls/hr IVC .Q10H PRN PRN Reason: HYPOGLYCEMIA Stop: 08/31/19 23:02 Insulin Detemir (Levemir) 28 unit 0.15 unit/kg (28 unit) SQ HS [facility] Stop: 08/31/19 23:16 Last Admin: 03/02/19 01:19 Dose: 28 unit Documented by: Insulin Human Lispro (Humalog) 0 units SQ TIDAC [facility]; Protocol Stop: 08/31/19 23:16 Last Admin: 03/02/19 13:07 Dose: 2 units Documented by: Levothyroxine Sodium (Synthroid) 75 mcg PO 0630 [facility] Stop: 09/01/19 06:31 Last Admin: 03/02/19 05:39 Dose: 75 mcg Documented by: Losartan Potassium (Cozaar) 100 mg PO DAILY [facility] Stop: 09/01/19 09:01 Last Admin: 03/02/19 09:01 Dose: 100 mg Documented by: Metoprolol Tartrate (Lopressor) 25 mg PO BID [facility] Stop: 09/01/19 09:01 Last Admin: 03/02/19 09:01 Dose: 25 mg Documented by: Sertraline HCl (Zoloft) 150 mg PO DAILY [facility] Stop: 09/01/19 09:01 Last Admin: 03/02/19 09:01 Dose: 150 mg Documented by: Warfarin Sodium (Coumadin Perpt) 1 each PO DAILY@1800 PRN PRN Reason: SEE COMMENTS Stop: 09/01/19 18:01 Warfarin Sodium (Coumadin) 1 mg PO 1800 [facility] Stop: 03/02/19 18:01 Laboratory Tests 03/01/19 03/02/19 03/02/19 17:48 00:47 00:47 Hgb 11.8 L INR Creatinine Troponin I < 0.03 < 0.03 03/02/19 03/02/19 00:47 00:47 Hgb INR 3.0 Creatinine 1.05 Troponin I - Imaging and Cardiology Chest Xray: report reviewed Echo: report reviewed - EKG Interpretation EKG results cardiology: personally reviewed (ECG with SR, HR 76, RBBB noted.), other (Telemetry reveiwed with average HR previous 12 hours noted to be 63, SR. Frequent PACs noted.) Consult Discharge Plan - Plan Referrals: Richard Tran DO [Primary Care Provider] - <Divina Soto - Last Filed: 03/02/19 17:27> Date of Encounter: 03/02/19 - Attending Attestation I examined this patient and my medical decision-making was reviewed with the LASER BEAM MACHINE OPERATOR. I agree with the documented findings, disposition and treatment plan as described. Mr. Cruz presents with acute LV diastolic CHF exacerbation. Recommend IV diuresis, compression stockings, strick I/O's and weights. Has upcoming sleep study testing. On Amio for PAF, in NSR on anticoagulation. Assessment and Plan Discussion w patient/family: The assessment and plan as outlined above was discussed with the patient and/or family members who expressed understanding and agreement. All questions were answered. Thank you for involving us in the care of your patient. Please call with any questions. History of Present Illness History of present illness: Mr. Cruz is a 69 year old male All Systems Review: The remainder of the systems were reviewed and are negative Physical Examination Vital Signs, Last 4 Hours Temp Pulse Resp BP Pulse Ox 03/02/19 16:48 98 F 61 16 119/45 96 Results 03/02/19 00:47 03/02/19 00:47 Lab Results 03/01/19 03/01/19 03/01/19 17:48 17:48 17:48 WBC 8.4 Hgb 11.3 L Hct 37.9 Plt Count 220 INR 3.0 Sodium 137 Potassium 4.9 Chloride 101 Carbon Dioxide 27 BUN 22 Creatinine 1.06 Glucose 141 H Calcium 8.5 L Magnesium Total Bilirubin AST ALT Alkaline Phosphatase Troponin I < 0.03 B-Natriuretic Peptide TSH 03/01/19 03/02/19 03/02/19 17:48 00:47 00:47 WBC 9.0 Hgb 11.8 L Hct 39.8 Plt Count 227 INR Sodium Potassium Chloride Carbon Dioxide BUN Creatinine Glucose Calcium Magnesium Total Bilirubin AST ALT Alkaline Phosphatase Troponin I < 0.03 B-Natriuretic Peptide 106 H TSH 03/02/19 03/02/19 03/02/19 00:47 00:47 06:39 WBC Hgb Hct Plt Count INR 3.0 3.0 Sodium 139 Potassium 4.5 Chloride 98 Carbon Dioxide 32 H BUN 21 Creatinine 1.05 Glucose 145 H Calcium 8.9 Magnesium 1.6 Total Bilirubin 0.8 AST 15 ALT 12 Alkaline Phosphatase 81 Troponin I B-Natriuretic Peptide TSH 3.711
[2019-03-02] MEDS ORDERED: *HR* Warfarin 1 MG TABLET PO ONE (18:00)
[2019-03-02] MEDS ORDERED: Warfarin perPT PO PRN (18:00)
[2019-03-02] MEDS ORDERED: Saline Nasal Spray 44 ML BOTTLE NS PRN (18:10)
[2019-03-03 08:10] LABS: INR 2.6; Prothrombin Time 29.5 Seconds (9.4-12.1)
[2019-03-03 08:21] LABS: BUN/Creatinine Ratio 21 (6-26); Blood Urea Nitrogen 24 mg/dL (8-23); Calcium 8.8 mg/dL (8.6-10.3); Carbon Dioxide 35 mEq/L (23-29); Chloride 95 mEq/L (98-107); Glucose 162 mg/dL (70-105); Osmolality,Calculated 294 (280-300); Sodium 138 mEq/L (136-145); eGFR For African Americans > 60 (> 60); eGFR For Non-African Americans > 60 (> 60)
[2019-03-03] MEDS: Insulin LISPRO 300 UNITS/3 ML VIAL SQ SCH ×3 (08:52→17:08)
[2019-03-03] MEDS: Furosemide 20 MG/2 ML VIAL IVP SCH ×2 (08:53→17:07)
--- NOTE | 2019-03-03 09:28 | Electrocardiograph Report ---
[facility] Test Date: 2019-03-01 Pat Name: Dre Cruz Department: EXAM6 Room: 2NE27 Gender: M Associate Curator: : 1950 Requested By: Cezar Sheldon Order Number: [id number] Reading MD: Jacek Urias Measurements Intervals [place] Rate: 76 P: -10 PA: 191 QRS: -84 QRSD: 167 T: 32 QT: 464 QTc: 522 Interpretive Statements Sinus rhythm RBBB and LAFB Electronically Signed On 03-03-2019 9:26:48 EDT by Jacek Urias
--- NOTE | 2019-03-03 11:32 | Cardiology Progress Note ---
Date of Encounter: 03/03/19 Time of Encounter: 10:00 Assessment and Plan (1) Diastolic CHF Current Visit: Yes Status: Acute Per cardiology: -Reports progressive shortness of breath at home. -Chest x-ray with pulmonary edema. -BNP 106, however suspect low due to obesity. -ON IV lasix, currently net negative 2500ml -Remains volume overloaded on exam and still requiring O2, not normally on at home. -TTE with LVEF preserved, no visualized wall motion abnormalities noted. -Agree with IV diuresis. Recommend at least 24 more hours of diuresis. If eu volemic, then transition to po. Recommend 20mg BID PO at discharge. -Strict i/os, fluid restriction, daily weights. -CHF education reviewed with patient. -Cardiology will sign off, recommend close outpatient follow up with primary cardiology. Qualifiers: Heart failure chronicity: acute Qualified Code(s): I50.31 - Acute diastolic (congestive) heart failure (2) PAF (paroxysmal atrial fibrillation) Current Visit: Yes Status: Acute Per cardiology: -Known PAF s/p ablation. -Follows with [facility]. -On amiodarone, BB, and coumadin for anticoagulation. -SR per ECG. -Continue current medical regimen. Recommend follow up with primary documentation improvement specialist. Discussion w patient/family: The assessment and plan as outlined above was discussed with the patient who expressed understanding and agreement. All questions were answered. Thank you for involving us in the care of your patient. Please call with any questions. Discussed and reviewed with . Subjective Principal diagnosis: CHF Interval history: Patiet denies complaints today. States respiratory status improving. Objective Vital Signs Temperature 97.8 F 03/01/19 16:27 Pulse Rate 51 03/01/19 16:27 Respiratory Rate 18 03/01/19 16:27 Blood Pressure 127/68 03/01/19 16:27 O2 Sat by Pulse Oximetry 81 03/01/19 16:27 Temperature 98.5 F 03/03/19 06:17 Pulse Rate 50 03/03/19 06:17 Respiratory Rate 19 03/03/19 06:17 Blood Pressure 95/36 03/03/19 06:17 O2 Sat by Pulse Oximetry 93 03/03/19 06:17 Oxygen Delivery Oxygen Delivery Nasal Cannula General: Conversant, No Apparent Distress HEENT: Atraumatic, Normocephaly, Mucus Membranes Moist Neck: No JVD, Normal carotid pulses Cardiac: Reg Rate and Rhythm, Normal S1 and S2, No Murmur Lungs: Other (Lung sounds diminished throughout) Neuro: Alert and responsive, No focal deficits noted Abdomen: Soft, Non-Tender Skin: No rashes noted on visualized skin Musculoskeletal: No Chest Wall Tenderness Extremities: No Clubbing, No Cyanosis, Normal Pulses, Other (Moderate lower extremity edema noted, non-pitting. ) Results 03/02/19 00:47 03/03/19 07:45 Lab Results Impressions Echocardiogram 03/01/19 23:00 Impressions: Technically sub-optimal due to body habitus. Definity echo contrast was used. LVEF 60%. Indeterminate diastolic function. Right ventricular structure and function not well visualized. Mild aortic stenosis by Doppler. Mild mitral regurgitation. No pulmonary hypertension by TR signal obtained. Left Ventricular Wall Motion: Rest Echo Findings The mid inferior lateral and basal inferior lateral rowley were not visualized. All other wall segments showed normal motion. Findings: Study Quality * Technically sub-optimal due to body habitus. ECG Findings * Atrial fibrillation. Left Ventricle * Definity echo contrast was used. * Indeterminate diastolic function. * LVEF 60%. * LV chamber size and wall thickness appear grossly normal. Right Ventricle * Right ventricular structure and function not well visualized. Left Atrium * Moderately dilated left atrium. Right Atrium * Normal right atrial size. Aortic Valve * No aortic regurgitation. * Aortic valve not well visualized. * Mild aortic stenosis by Doppler. Mitral Valve * Mitral valve not well visualized. * No mitral stenosis. * Mild mitral regurgitation. * Mild mitral annular calcification Tricuspid Valve * Tricuspid valve not well visualized. * Trace tricuspid regurgitation. Pulmonic Valve * Pulmonic valve is not well visualized. * No pulmonic stenosis. * No pulmonic regurgitation. Pulmonary Artery * Pulmonary artery not well visualized. Aorta * Not visualized. Pericardium * There is no pericardial effusion present. Interatrial Septum * Interatrial septum not well evaluated. IVC * The IVC is not well evaluated. Active Medications Amiodarone HCl (Cordarone) 200 mg PO DAILY [facility] Stop: 09/01/19 09:01 Last Admin: 03/02/19 09:01 Dose: 200 mg Documented by: Atorvastatin Calcium (Lipitor) 40 mg PO DAILY [facility] Stop: 09/01/19 09:01 Last Admin: 03/03/19 08:46 Dose: 40 mg Documented by: Dextrose/Water (Dextrose 50% (Syg)) 25 ml IVP AD PRN PRN Reason: Hypoglycemia Stop: 08/31/19 23:02 Furosemide (Lasix) 20 mg IVP BIDDIURETIC [facility] Stop: 09/01/19 08:01 Last Admin: 03/03/19 08:53 Dose: 20 mg Documented by: Glucagon (Glucagen) 1 mg IM ONCE PRN PRN Reason: Hypoglycemia Stop: 08/31/19 23:02 Glucose (Gluctose) 15 gm PO ONCE PRN PRN Reason: Hypoglycemia Stop: 08/31/19 23:02 Glucose (Gluctose) 30 gm PO ONCE PRN PRN Reason: Hypoglycemia Stop: 08/31/19 23:02 Dextrose (Dextrose 5%) 1,000 mls @ 100 mls/hr IVC .Q10H PRN PRN Reason: HYPOGLYCEMIA Stop: 08/31/19 23:02 Insulin Detemir (Levemir) 28 unit 0.15 unit/kg (28 unit) SQ HS [facility] Stop: 08/31/19 23:16 Last Admin: 03/02/19 20:48 Dose: 28 unit Documented by: Insulin Human Lispro (Humalog) 0 units SQ TIDAC [facility]; Protocol Stop: 08/31/19 23:16 Last Admin: 03/03/19 08:52 Dose: 2 units Documented by: Levothyroxine Sodium (Synthroid) 75 mcg PO 0630 [facility] Stop: 09/01/19 06:31 Last Admin: 03/03/19 06:20 Dose: 75 mcg Documented by: Losartan Potassium (Cozaar) 100 mg PO DAILY [facility] Stop: 09/01/19 09:01 Last Admin: 03/03/19 08:48 Dose: 100 mg Documented by: Metoprolol Tartrate (Lopressor) 25 mg PO BID [facility] Stop: 09/01/19 09:01 Last Admin: 03/03/19 08:46 Dose: 25 mg Documented by: Sertraline HCl (Zoloft) 150 mg PO DAILY [facility] Stop: 09/01/19 09:01 Last Admin: 03/03/19 08:49 Dose: 150 mg Documented by: Sodium Chloride ([place] Nasal [place]) 2 spray NS Q2H PRN PRN Reason: Congestion Stop: 09/01/19 18:11 Last Admin: 03/03/19 08:51 Dose: 2 spray Documented by: Warfarin Sodium (Coumadin Perpt) 1 each PO DAILY@1800 PRN PRN Reason: SEE COMMENTS Stop: 09/01/19 18:01 Laboratory Tests 03/02/19 03/03/19 00:47 07:45 Creatinine 1.05 1.15 - Imaging and Cardiology Chest Xray: report reviewed Echo: report reviewed Consult Discharge Plan - Plan Referrals: Richard Tran DO [Primary Care Provider] -
[2019-03-03] MEDS: *HR* Amiodarone 200 MG TABLET PO SCH (12:14)
--- NOTE | 2019-03-03 13:16 | Internal Med Progress Note ---
Hospitalist Progress Note - Encounter Date of Encounter: 03/03/19 Time of Encounter: 11:00 - Subjective Interval History: Patient feels better today. He wanted to leave as he is not able to move around here in the hospital due to bed as he sustained a fall at home last month. 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 His shortness of breath is improving as well as his swelling. - Exam Vitals: Temp Pulse Resp BP Pulse Ox 97.9 F 46 19 120/45 91 03/03/19 11:55 03/03/19 11:55 03/03/19 11:55 03/03/19 11:55 03/03/19 11:55 Exam: General: Patient is alert, oriented 3. Head: Atraumatic, normal inspection, normocephalic. Eye: EOMI, PERRLA, no scleral icterus noted. ENT: Mucous membranes moist. No odontogenic infection noted. Large amount of oral secretions noted. Neck: Normal inspection, no meningismus. Respiratory: Bilateral bibasilar crackles. Cardiovascular: Regular rate and egular rhythm, S1 and S2 audible. No murmurs, rubs, or gallops. +1 bilateral lower extremity edema GI: Soft, nondistended, normal bowel sounds. Extremities:No joint swelling, pedal edema, or tenderness noted. Neurological: Alert, oriented 3, no focal deficits. Psychiatric: normal affect, normal mood. Skin: Dry, intact, warm. Normal color. No rashes. - Assessment and Plan (1) Acute heart failure with preserved ejection fraction (HFpEF) Current Visit: Yes Status: Acute (2) Type 2 diabetes mellitus Current Visit: Yes Status: Acute (3) Status post ablation of atrial fibrillation Current Visit: Yes Status: Chronic (4) Morbid obesity with BMI of 50.0-59.9, adult Current Visit: Yes Status: Chronic (5) PAF (paroxysmal atrial fibrillation) Current Visit: Yes Status: Chronic (6) DVT prophylaxis Current Visit: Yes Status: Acute - Summary of Assessment and Plan Summary of Assessment and Plan: 69-year-old female with history of IDDM, hypothyroidism, HTN, morbid obesity, atrial fibrillation status post ablation on amiodarone and Coumadin who came into the hospital with a few days of dyspnea mainly on exertion. Patient was found to be in heart failure and pulmonary edema at presentation. His symptoms are managed as following: Acute decompensated heart failure: improving - likely from diet non-complaince as he eats a lot of salt. less likely due to underlying arrhythmia. - EKG, sinus rhythm, RBBB, LAFB. Troponin 2 negative. BNP 106. - on Lasix 20 mg IV twice a day with significant improvement in his symptoms. i/o: - 2.5L - Echo revealed normal EF and mild areas. - cardiology is on board, monitor I/O, daily weight, continue cardiac diet. - tomorrow for discharge on lasix 20mg BID po and BMP script for follow up. Hx of atrial fibrillation s/p ablation: - On amiodarone and Lopressor for rate control - On Coumadin for anticoagulation. INR is therapeutic. - Continue above medication. Monitor INR IDDM: - Checked with pharmacy and then shortly about his home doses. As per outpatient records, he is on 70/30 regimen with 55 units in the morning and 35 units at night. Pharmacy committed to keep doses at today's and managed on daily basis. - ADA, bgm TID ACHS. Increase his sliding scale coverage to medium sliding scale. Morbid obesity with BMI of 54: - Lifestyle modification including diet was discussed with the patient. Hypothyroidism: Continue levothyroxine HTN: Continue losartan DVT prophylaxis: On Coumadin Diet: Cardiac diet, diabetic diet Disposition: Inpatient, anticipating discharge on Monday - Time Spent with Patient Total time spent is greater than 50% in coordination of care (as documented) at patient's floor/unit and/or counseling patient: Greater than 35 minutes Plan of Care Discussed with: patient Internal Medicine: Result - Labs CBC & Chem 7: 03/02/19 00:47 03/03/19 07:45 Labs: BMP 03/03/19 07:45 Sodium 138 Potassium 4.0 Chloride 95 L Carbon Dioxide 35 H BUN 24 H Creatinine 1.15 Glucose 162 H Calcium 8.8 - ABG Interpretation ABG results: PT/INR, D-dimer PT 29.5 Seconds (9.4-12.1) H 03/03/19 07:45 - Impressions Impressions Echocardiogram 03/01/19 23:00 Impressions: Technically sub-optimal due to body habitus. Definity echo contrast was used. LVEF 60%. Indeterminate diastolic function. Right ventricular structure and function not well visualized. Mild aortic stenosis by Doppler. Mild mitral regurgitation. No pulmonary hypertension by TR signal obtained. Left Ventricular Wall Motion: Rest Echo Findings The mid inferior lateral and basal inferior lateral rowley were not visualized. All other wall segments showed normal motion. Findings: Study Quality * Technically sub-optimal due to body habitus. ECG Findings * Atrial fibrillation. Left Ventricle * Definity echo contrast was used. * Indeterminate diastolic function. * LVEF 60%. * LV chamber size and wall thickness appear grossly normal. Right Ventricle * Right ventricular structure and function not well visualized. Left Atrium * Moderately dilated left atrium. Right Atrium * Normal right atrial size. Aortic Valve * No aortic regurgitation. * Aortic valve not well visualized. * Mild aortic stenosis by Doppler. Mitral Valve * Mitral valve not well visualized. * No mitral stenosis. * Mild mitral regurgitation. * Mild mitral annular calcification Tricuspid Valve * Tricuspid valve not well visualized. * Trace tricuspid regurgitation. Pulmonic Valve * Pulmonic valve is not well visualized. * No pulmonic stenosis. * No pulmonic regurgitation. Pulmonary Artery * Pulmonary artery not well visualized. Aorta * Not visualized. Pericardium * There is no pericardial effusion present. Interatrial Septum * Interatrial septum not well evaluated. IVC * The IVC is not well evaluated. 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
[2019-03-03] MEDS ORDERED: D5% in Water 1,000 ML IVC PRN (13:21)
[2019-03-03] MEDS ORDERED: Dextrose Gel 15 GM/37.5 ML TUBE PO PRN ×2 (13:21)
[2019-03-03] MEDS ORDERED: *HR* Dextrose 50 % in Water (Syg) 50 ML SYRINGE IVP PRN (13:21)
[2019-03-03] MEDS ORDERED: *HR* Warfarin 3 MG TABLET PO ONE (18:00)
[2019-03-03] MEDS: Insulin DETEMIR 100 UNIT/ML X5UNITS SQ SCH (20:45)
[2019-03-03] MEDS ORDERED: Insulin LISPRO 300 UNITS/3 ML VIAL SQ SCH (21:00)
[2019-03-04 07:34] VITALS: BP 125/48
[2019-03-04 07:55] LABS: INR 2.4; Prothrombin Time 27.8 Seconds (9.4-12.1)
[2019-03-04 07:58] LABS: BUN/Creatinine Ratio 23 (6-26); Blood Urea Nitrogen 26 mg/dL (8-23); Calcium 8.8 mg/dL (8.6-10.3); Carbon Dioxide 37 mEq/L (23-29); Chloride 94 mEq/L (98-107); Glucose 153 mg/dL (70-105); Osmolality,Calculated 298 (280-300); Potassium 4.2 mEq/L (3.5-5.1); Sodium 140 mEq/L (136-145); eGFR For African Americans > 60 (> 60); eGFR For Non-African Americans > 60 (> 60)
[2019-03-04] MEDS: Insulin LISPRO 300 UNITS/3 ML VIAL SQ SCH (08:57)
[2019-03-04] MEDS: *HR* Amiodarone 200 MG TABLET PO SCH (09:02)
[2019-03-04] MEDS: Furosemide 20 MG/2 ML VIAL IVP SCH (09:02)
--- NOTE | 2019-03-04 09:30 | Discharge Summary ---
- NOTES TO OUTPATIENT PROVIDER Notes to Outpatient Provider: BMP and volume status. 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: with assisted use Diabetes mellitus complication status: without complication Qualified Code(s): E11.9 - Type 2 diabetes mellitus without complications; Z79.4 - [facility] (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 (3) Status post ablation of atrial fibrillation Priority: Secondary Status: Chronic (4) Morbid obesity with BMI of 50.0-59.9, adult Priority: Secondary Status: Chronic (5) PAF (paroxysmal atrial fibrillation) Priority: Secondary Status: Chronic (6) DVT prophylaxis Priority: Secondary Status: Acute Hospital course: 69-year-old female with history of IDDM, hypothyroidism, HTN, morbid obesity, atrial fibrillation status post ablation on amiodarone and Coumadin who came into the hospital with a few days of dyspnea mainly on exertion. Patient was found to be in heart failure and pulmonary edema at presentation. His workup including EKG with sinus rhythm, RBBB, LAFB. Troponin 2 negative. BNP 106. Patient was areas with Lasix 20 mg IV twice a day with >3L net negative and his input and output. Echo revealed normal EF and mild . Cardiology did follow the patient and recommend to continue outpatient diuresis with Lasix 20 mg twice a day and follow with outpatient primary glue maker bone. Today, patient is hemodynamically stable. His symptoms improved and he is saturating normally on room air with no more oxygen requirements. He will be discharged home in stable condition. He will report to his PCP in 5 days with BMP prescription to check on his kidney dysfunction. Discharge discussed with: patient - Time Spent with Patient Total time spent providing and/or coordinating discharge services:35 minutes - Discharge Medications Prescriptions: New Furosemide [Lasix] 20 mg PO BID #60 tablet Levothyroxine [Synthroid] 75 mcg PO 0630 tablet Continued Sertraline [Zoloft] 150 mg PO DAILY Metoprolol [Lopressor] 25 mg PO DAILY Losartan Potassium [Cozaar] 100 mg PO DAILY Warfarin [Coumadin] 3 mg PO SUMOWEFR Atorvastatin [Lipitor] 40 mg PO HS Amiodarone [Cordarone] 200 mg PO DAILY Warfarin [Coumadin] 1.5 mg PO TUTHSA Fluticasone Propionate Nasal [Flonase] 100 mcg PO DAILY PRN PRN Reason: Allergy Symptoms Insulin NPH Hum/Reg Insulin Hm [Novolin 70-30 Flexpen] 40 units SQ QPM Insulin NPH Hum/Reg Insulin Hm [Novolin 70-30 Flexpen] 50 units SQ QAM Levothyroxine [Synthroid] 100 mcg PO QAM Montelukast [Singulair] 10 mg PO QPM Home Medications: Amiodarone [Cordarone] 200 mg PO DAILY 02/13/18 [History] Atorvastatin [Lipitor] 40 mg PO HS 02/13/18 [History] Losartan Potassium [Cozaar] 100 mg PO DAILY 02/13/18 [History] Metoprolol [Lopressor] 25 mg PO DAILY 02/13/18 [History] Sertraline [Zoloft] 150 mg PO DAILY 02/13/18 [History] Warfarin [Coumadin] 3 mg PO SUMOWEFR 02/13/18 [History] Warfarin [Coumadin] 1.5 mg PO TUTHSA 03/01/19 [History] Fluticasone Propionate Nasal [Flonase] 100 mcg PO DAILY PRN 03/03/19 [History] Insulin NPH Hum/Reg Insulin Hm [Novolin 70-30 Flexpen] 40 units SQ QPM 03/03/19 [History] Insulin NPH Hum/Reg Insulin Hm [Novolin 70-30 Flexpen] 50 units SQ QAM 03/03/19 [History] Levothyroxine [Synthroid] 100 mcg PO QAM 03/03/19 [History] Montelukast [Singulair] 10 mg PO QPM 03/03/19 [History] Furosemide [Lasix] 20 mg PO BID #60 tablet 03/04/19 [Rx] Levothyroxine [Synthroid] 75 mcg PO 0630 tablet 03/04/19 [Rx] Allergies/Adverse Reactions: Allergy/AdvReac Type Severity Reaction Status Date / Time cefazolin [From Ancef] Allergy Hives Verified 03/03/19 16:17 rosuvastatin [From Crestor] Allergy Hives Verified 03/03/19 16:17 Sulfa (Sulfonamide Allergy Hives Verified 03/03/19 16:17 Antibiotics) Date of admission: 03/03/19 13:06 Primary care physician: Richard Tran DO Consults: 03/02/19 07:56 Consult to Cardiology [CONS] Routine Comment: Consulting Provider: [facility] [place] Reason for Consult: A.radha came with Heart failure. Call Completed: Yes - Constitutional Vitals: Temp Pulse Resp BP Pulse Ox 97.6 F 60 16 125/48 93 03/04/19 07:23 03/04/19 07:23 03/04/19 09:07 03/04/19 07:23 03/04/19 09:07 Exam: General: Patient is alert, oriented 3. Head: Atraumatic, normal inspection, normocephalic. Eye: EOMI, PERRLA, no scleral icterus noted. ENT: Mucous membranes moist. No odontogenic infection noted. Large amount of oral secretions noted. Neck: Normal inspection, no meningismus. Respiratory: Clear to auscultation Cardiovascular: Regular rate and regular rhythm, S1 and S2 audible. No murmurs, rubs, or gallops. No bilateral edema GI: Soft, nondistended, normal bowel sounds. Extremities:No joint swelling, pedal edema, or tenderness noted. Neurological: Alert, oriented 3, no focal deficits. Psychiatric: normal affect, normal mood. Skin: Dry, intact, warm. Normal color. No rashes. - Patient Status Disposition: Home, Self-Care Functional capacity at discharge: independent ambulation Overall status at discharge: patient is back to baseline - Discharge Instructions Follow Up With: Richard Tran DO [Primary Care Provider] - 03/11/19 9:30 am - Diet and Activity Activity: resume usual activities as tolerated Diet: diabetic diet, low salt diet
[2019-03-04 11:29] LABS: Estimated Average Glucose 192 mg/dl
[2019-03-04] MEDS ORDERED: *HR* Warfarin 3 MG TABLET PO ONE (18:00)
== END 2019-03-04 10:28 | disposition home or self-care (01) | DRG 292 ==
LOC: 2NENU 16:14 → EMEROOARM 16:14 → SUATTDRO 22:25 → 2NENU 23:32
PROVIDERS: ADMIT Internal Medicine Nephrology; ATTEND Internal Medicine

== ENCOUNTER 2019-03-10 16:02 | Inpatient (IN) ==
--- NOTE | 2019-03-10 17:11 | Emergency Department Note ---
Disposition Clinical Impression: UTI (urinary tract infection) Disposition: Admitted As Inpatient Condition: Fair Referrals: Richard Tran DO [Primary Care Provider] - Forms: ED Satisfaction Letter Time of Disposition: 18:49 General Adult HPI - General Chief complaint: ED Weakness Stated complaint: fever,weak Time Seen by Provider: 03/10/19 16:08 Source: patient Limitations: physical limitation Nursing Notes Reviewed: Yes Vital Signs Reviewed: Yes - History of Present Illness Pain Scale: 0 - Related Data Home Medications Medication Instructions Recorded Confirmed Amiodarone [Cordarone] 200 mg PO DAILY 02/13/18 03/10/19 Atorvastatin [Lipitor] 40 mg PO HS 02/13/18 03/10/19 Losartan Potassium [Cozaar] 100 mg PO DAILY 02/13/18 03/10/19 Metoprolol [Lopressor] 25 mg PO DAILY 02/13/18 03/10/19 Sertraline [Zoloft] 150 mg PO DAILY 02/13/18 03/10/19 Warfarin [Coumadin] 3 mg PO SUMOWEFR 02/13/18 03/10/19 Warfarin [Coumadin] 1.5 mg PO TUTHSA 03/01/19 03/10/19 Fluticasone Propionate Nasal 100 mcg PO DAILY PRN 03/03/19 03/10/19 [Flonase] Insulin NPH Hum/Reg Insulin Hm 40 units SQ QPM 03/03/19 03/10/19 [Novolin 70-30 Flexpen] Insulin NPH Hum/Reg Insulin Hm 50 units SQ QAM 03/03/19 03/10/19 [Novolin 70-30 Flexpen] Levothyroxine [Synthroid] 100 mcg PO QAM 03/03/19 03/03/19 Montelukast [Singulair] 10 mg PO QPM 03/03/19 03/10/19 Previous Rx's Medication Instructions Recorded Furosemide [Lasix] 20 mg PO BID #60 tablet 03/04/19 Levothyroxine [Synthroid] 75 mcg PO 0630 tablet 03/04/19 Allergies Allergy/AdvReac Type Severity Reaction Status Date / Time cefazolin [From Ancef] Allergy Hives Verified 03/03/19 16:17 rosuvastatin [From Crestor] Allergy Hives Verified 03/03/19 16:17 Sulfa (Sulfonamide Allergy Hives Verified 03/03/19 16:17 Antibiotics) Past Medical History - Past Medical History Medical history: Reports: atrial fibrillation, diabetes, hyperlipidemia, hypertension Surgical history: Reports: cholecystectomy Psychiatric history: Reports: no psych history - Social History Smoking Status: Never smoker Smokeless Tobacco Status: No Alcohol use: Reports: none Drug use: Reports: none Physical Exam - General Limitations: physical limitation General appearance: alert, in distress, obese Course Vital Signs Temperature 99.9 F H 03/10/19 16:04 Pulse Rate 50 03/10/19 16:04 Respiratory Rate 16 03/10/19 16:04 Blood Pressure 141/58 03/10/19 16:04 O2 Sat by Pulse Oximetry 83 03/10/19 16:04 Temperature 99.9 F H 03/10/19 16:16 Pulse Rate 52 03/10/19 17:32 Respiratory Rate 28 03/10/19 17:32 Blood Pressure 146/39 03/10/19 17:32 O2 Sat by Pulse Oximetry 95 03/10/19 17:32 Oxygen Delivery Oxygen Delivery Simple Mask Medical Decision Making - Lab Data Result diagrams: 03/10/19 17:19 03/10/19 17:19 Lab Results 03/10/19 03/10/19 03/10/19 Range/Units 17:19 17:19 17:19 WBC 11.8 H (4.3-11.1) K/mcL RBC 5.11 (4.19-5.50) M/mcL Hgb 12.7 L (12.9-16.9) g/dL Hct 42.4 (37.5-50.1) % MCV 83.0 (83.0-100.0) fL MCH 24.9 L (28.0-33.3) pg MCHC 30.0 L (31.6-35.5) g/dL RDW 15.4 H (11.5-14.5) % Plt Count 197 (140-400) K/mcL MPV 9.8 (9.4-12.4) fL Immature Gran % 0.5 (0-4) % Seg Neutrophils % 90.7 % Lymphocytes % 2.1 % Monocytes % 6.4 % Eosinophils % 0.0 % Basophils % 0.3 % Neutrophils # 10.7 H (1.6-8.9) K/mcL Lymphocytes # 0.3 L (0.6-4.6) K/mcL Monocytes # 0.8 (0.0-1.3) K/mcL Eosinophils # 0.0 (0.0-0.6) K/mcL Basophils # 0.0 (0.0-0.2) K/mcL PT 22.8 H (9.4-12.1) Seconds INR 2.0 APTT 29.1 (26.0-36.0) Seconds Sodium 132 L (136-145) mEq/L Potassium 4.6 (3.5-5.1) mEq/L Chloride 93 L (98-107) mEq/L Carbon Dioxide 27 (23-29) mEq/L BUN 33 H (8-23) mg/dL Creatinine 1.50 H (0.70-1.30) mg/dL Est GFR ( Amer) 56 L (> 60) Est GFR (Non-Af Amer) 46 L (> 60) BUN/Creatinine Ratio 22 (6-26) Glucose 262 H (70-105) mg/dL Calculated Osmolality 290 (280-300) Lactic Acid (0.5-2.2) mmol/L Calcium 8.8 (8.6-10.3) mg/dL Phosphorus 2.9 (2.7-4.5) mg/dL Magnesium 1.5 L (1.6-2.6) mg/dL Total Bilirubin 1.9 H (0.3-1.0) mg/dL Direct Bilirubin 1.1 H (0.0-0.2) mg/dL Indirect Bilirubin 0.8 (0.0-1.2) mg/dL AST 157 H (13-39) Units/L ALT 114 H (7-52) Units/L Alkaline Phosphatase 155 H (34-104) Units/L Troponin I 0.03 (< 0.04) ng/mL B-Natriuretic Peptide (Less than 100) pg/mL Serum Total Protein 7.5 (6.4-8.9) g/dL Albumin 3.7 (3.5-5.7) g/dL Globulin 3.8 H (2.4-3.5) g/dL Albumin/Globulin Ratio 1.0 L (1.1-2.2) Urine Color (Yellow) Urine Clarity (Clear) Urine pH (5.0-8.0) pH Units Ur Specific [place] (1.010-1.025) Urine Protein (Neg-Trace) mg/dL Urine Glucose (UA) (Normal) mg/dL Urine Ketones (Negative) mg/dL Urine Blood (Negative) Urine Nitrite (Negative) Urine Bilirubin (Negative) Urine Urobilinogen (Normal) mg/dL Ur Leukocyte Esterase (Negative) Urine Microscopic RBC (0-3) per hpf Urine Microscopic WBC (0-3) per hpf Ur Squamous Epith Cells (None-Few) per lpf Urine Bacteria (None-Few) per hpf Hyaline Casts (None-Few) per lpf Ur Culture Indicated? (NO) 03/10/19 03/10/19 03/10/19 Range/Units 17:19 17:19 18:08 WBC (4.3-11.1) K/mcL RBC (4.19-5.50) M/mcL Hgb (12.9-16.9) g/dL Hct (37.5-50.1) % MCV (83.0-100.0) fL MCH (28.0-33.3) pg MCHC (31.6-35.5) g/dL RDW (11.5-14.5) % Plt Count (140-400) K/mcL MPV (9.4-12.4) fL Immature Gran % (0-4) % Seg Neutrophils % % Lymphocytes % % Monocytes % % Eosinophils % % Basophils % % Neutrophils # (1.6-8.9) K/mcL Lymphocytes # (0.6-4.6) K/mcL Monocytes # (0.0-1.3) K/mcL Eosinophils # (0.0-0.6) K/mcL Basophils # (0.0-0.2) K/mcL PT (9.4-12.1) Seconds INR APTT (26.0-36.0) Seconds Sodium (136-145) mEq/L Potassium (3.5-5.1) mEq/L Chloride (98-107) mEq/L Carbon Dioxide (23-29) mEq/L BUN (8-23) mg/dL Creatinine (0.70-1.30) mg/dL Est GFR ( Amer) (> 60) Est GFR (Non-Af Amer) (> 60) BUN/Creatinine Ratio (6-26) Glucose (70-105) mg/dL Calculated Osmolality (280-300) Lactic Acid 1.7 (0.5-2.2) mmol/L Calcium (8.6-10.3) mg/dL Phosphorus (2.7-4.5) mg/dL Magnesium (1.6-2.6) mg/dL Total Bilirubin (0.3-1.0) mg/dL Direct Bilirubin (0.0-0.2) mg/dL Indirect Bilirubin (0.0-1.2) mg/dL AST (13-39) Units/L ALT (7-52) Units/L Alkaline Phosphatase (34-104) Units/L Troponin I (< 0.04) ng/mL B-Natriuretic Peptide 551 H (Less than 100) pg/mL Serum Total Protein (6.4-8.9) g/dL Albumin (3.5-5.7) g/dL Globulin (2.4-3.5) g/dL Albumin/Globulin Ratio (1.1-2.2) Urine Color Dark Yellow (Yellow) Urine Clarity Cloudy A (Clear) Urine pH 5.5 (5.0-8.0) pH Units Ur Specific [place] 1.022 (1.010-1.025) Urine Protein 100 H (Neg-Trace) mg/dL Urine Glucose (UA) Normal (Normal) mg/dL Urine Ketones Trace H (Negative) mg/dL Urine Blood Large H (Negative) Urine Nitrite Positive A (Negative) Urine Bilirubin Moderate H (Negative) Urine Urobilinogen Normal (Normal) mg/dL Ur Leukocyte Esterase Small H (Negative) Urine Microscopic RBC 5-15 H (0-3) per hpf Urine Microscopic WBC 5-15 H (0-3) per hpf Ur Squamous Epith Cells Moderate H (None-Few) per lpf Urine Bacteria None Seen (None-Few) per hpf Hyaline Casts None Seen (None-Few) per lpf Ur Culture Indicated? YES A (NO) Critical Care Time Critical Care Time: Yes Total Critical Care Time: 35 Attestation: Critical care performed: Time is exclusive of separately billable procedures. Time includes: direct patient care, patient reassessment, coordination of patient care, interpretation of data (laboratory data, radiology data, and respiratory data), review of patient's medical records, medical consultation and documentation of patient care. Procedures included in critical care time: Procedures excluded from critical care time: Attestation Statement - Attestation Attestation: I examined this patient and my medical decision-making was reviewed with the Resident Physician. I agree with the documented findings, disposition and treat ment plan as described except to the extent set forth below. A banks to the ED with fevers and generalized weakness. Onset a few days ago. Patient had a recent admission for CHF. They increased his Lasix. He is been weak and having trouble walking. He had a fever 100.5 before his daughter brought him in today. On exam he sitting up in bed in no acute distress. Speaks full sentences. He was satting 99% on a nonrebreather my evaluation. I weaned him down to 6 L on an oximask. Lung sounds are diminished. Abdomen is soft nontender. He has noted to have some erythema over the right antecubital fossa where he had an IV placed last admission. He also some mild erythema and warmth to the right lateral banks. Plan. Septic workup. Patient with UTI. Culture sent. Antibiotics started. He also has an elevation in his LFTs. We will check a CT scan of his abdomen and pelvis, but he does not appear to have any pain here. Patient is admitted to the hospitalist. Chest X-Ray 03/10/19 16:23 IMPRESSION: 1. Very low lung volumes limits evaluation. 2. Cardiomegaly with congestive heart failure. Superimposed infection would be difficult to exclude. D/ /10/2019 17:16:48 Юлия Caldwell MD / Gerri Garibay Interpreting Provider: Юлия Caldwell MD
[2019-03-10 17:35] LABS: Basophils % 0.3 %; Hematocrit 42.4 % (37.5-50.1); Hemoglobin 12.7 g/dL (12.9-16.9); Immature Granulocytes % 0.5 % (0-4); Lymphocytes # 0.3 K/mcL (0.6-4.6); Lymphocytes % 2.1 %; Mean Corpuscular Hemoglobin 24.9 pg (28.0-33.3); Mean Platelet Volume 9.8 fL (9.4-12.4); Monocytes # 0.8 K/mcL (0.0-1.3); Monocytes % 6.4 %; Neutrophils # 10.7 K/mcL (1.6-8.9); Platelet Count 197 K/mcL (140-400); Red Blood Count 5.11 M/mcL (4.19-5.50); Red Cell Distribution Width 15.4 % (11.5-14.5); Segmented Neutrophils % 90.7 %; White Blood Count 11.8 K/mcL (4.3-11.1)
[2019-03-10 17:42] LABS: Prothrombin Time 22.8 Seconds (9.4-12.1)
[2019-03-10 17:44] LABS: Activated Partial Thrombo Time 29.1 Seconds (26.0-36.0)
[2019-03-10 17:56] LABS: Albumin 3.7 g/dL (3.5-5.7); Bilirubin,Direct 1.1 mg/dL (0.0-0.2); Bilirubin,Indirect 0.8 mg/dL (0.0-1.2); Bilirubin,Total 1.9 mg/dL (0.3-1.0); Calcium 8.8 mg/dL (8.6-10.3); Globulin 3.8 g/dL (2.4-3.5); Magnesium 1.5 mg/dL (1.6-2.6); Phosphorous 2.9 mg/dL (2.7-4.5); Potassium 4.6 mEq/L (3.5-5.1); Total Protein 7.5 g/dL (6.4-8.9); Troponin I 0.03 ng/mL (< 0.04)
--- NOTE | 2019-03-10 18:05 | Emergency Department Note ---
Disposition Clinical Impression: Transaminitis, Total bilirubin, elevated UTI (urinary tract infection) Qualifiers: Urinary tract infection type: site unspecified Hematuria presence: without hematuria Qualified Code(s): N39.0 - Urinary tract infection, site not specified Dyspnea Qualifiers: Dyspnea type: unspecified Qualified Code(s): R06.00 - Dyspnea, unspecified Disposition: Admitted As Inpatient Condition: Fair Referrals: Richard Tran DO [Primary Care Provider] - Forms: ED Satisfaction Letter Time of Disposition: 18:30 Weakness HPI - General Chief complaint: ED Weakness Stated complaint: fever,weak Time Seen by Provider: 03/10/19 16:08 Source: patient Mode of arrival: private vehicle Limitations: physical limitation Nursing Notes Reviewed: Yes Vital Signs Reviewed: Yes - History of Present Illness HPI Narrative: [id number] male with past medical history of CHF, COPD, diabetes, hypertension that was recently admitted to this facility for COPD exacerbation. During that time patient improved, and was well enough to go home. Patient was discharged on March 06, and started on a Lasix regimen. Patient has not only been compliant with his regimen but has doubled his Lasix dosage over the last several days because he felt that he got more benefit out of a higher dosage. Patient was doing well up until 2 days ago when he states that he developed fevers, chills, weakness, fatigue. Patient states that he is not even able to get out of bed at this point and feels very short of breath. Patient's initial saturation was in the high 70s, he was placed on a nonrebreather and his saturation improved into the mid 90s. Patient is complaining of a cough with increased sputum production. Pain Scale: 0 - Related Data Home Medications Medication Instructions Recorded Confirmed Amiodarone [Cordarone] 200 mg PO DAILY 02/13/18 03/10/19 Atorvastatin [Lipitor] 40 mg PO HS 02/13/18 03/10/19 Losartan Potassium [Cozaar] 100 mg PO DAILY 02/13/18 03/10/19 Metoprolol [Lopressor] 25 mg PO DAILY 02/13/18 03/10/19 Sertraline [Zoloft] 150 mg PO DAILY 02/13/18 03/10/19 Warfarin [Coumadin] 3 mg PO SUMOWEFR 02/13/18 03/10/19 Warfarin [Coumadin] 1.5 mg PO TUTHSA 03/01/19 03/10/19 Fluticasone Propionate Nasal 100 mcg PO DAILY PRN 03/03/19 03/10/19 [Flonase] Insulin NPH Hum/Reg Insulin Hm 40 units SQ QPM 03/03/19 03/10/19 [Novolin 70-30 Flexpen] Insulin NPH Hum/Reg Insulin Hm 50 units SQ QAM 03/03/19 03/10/19 [Novolin 70-30 Flexpen] Levothyroxine [Synthroid] 100 mcg PO QAM 03/03/19 03/03/19 Montelukast [Singulair] 10 mg PO QPM 03/03/19 03/10/19 Previous Rx's Medication Instructions Recorded Furosemide [Lasix] 20 mg PO BID #60 tablet 03/04/19 Levothyroxine [Synthroid] 75 mcg PO 0630 tablet 03/04/19 Allergies Allergy/AdvReac Type Severity Reaction Status Date / Time cefazolin [From Ancef] Allergy Hives Verified 03/03/19 16:17 rosuvastatin [From Crestor] Allergy Hives Verified 03/03/19 16:17 Sulfa (Sulfonamide Allergy Hives Verified 03/03/19 16:17 Antibiotics) Review of Systems: In addition to that documented in the HPI above, the additional ROS was obtained: Constitutional: Reports fevers or chills Eyes: Denies vision changes ENMT: Denies sore throat CV: Denies chest pain Resp: Reports exertional SOB, cough, increased sputum GI: Denies vomiting or diarrhea : Denies painful urination MSK: Denies recent trauma Skin: Denies new rashes Neuro: Denies new numbness or tingling or weakness Past Medical History - Past Medical History Medical history: Reports: atrial fibrillation, diabetes, hyperlipidemia, hypertension Surgical history: Reports: cholecystectomy Psychiatric history: Reports: no psych history - Social History Smoking Status: Never smoker Smokeless Tobacco Status: No Alcohol use: Reports: none Drug use: Reports: none Physical Exam General: A&O x 3. Appears mildly distressed. Well developed, well nourished. Head: atraumatic, normocephalic. ENT: No conjunctival injection, no scleral icterus. PERRLA. EOMI. Oropharynx non- erythematous. mucous membranes tacky. Neuro: No focal deficits, no speech deficit, no facial droop, mentating well. BUE/BLE Str 5/5. Pulm: Lung examination limited by patient's inability to move or sit up, anterior superior lung vázquez CTAB Cardio: bradycardic. Chest not tender to palpation. Abd: Soft, distended. Normoactive bowel sounds. Non-tender to palpation. No guarding. Non rigid. Extremities: Radial pulses 2+ adelaide, dorsalis pedis/posterior tibialis 1+ adelaide. Moderate adelaide LE edema. No cyanosis, clubbing. [place] LE venous stasis rash. Skin: warm, dry, intact. Psych: Appropriate mood and affect. Answers questions appropriately. Cooperative with exam. - General Limitations: physical limitation General appearance: alert, in distress, obese Course Vital Signs Temperature 99.9 F H 03/10/19 16:04 Pulse Rate 50 03/10/19 16:04 Respiratory Rate 16 03/10/19 16:04 Blood Pressure 141/58 03/10/19 16:04 O2 Sat by Pulse Oximetry 83 03/10/19 16:04 Temperature 99.9 F H 03/10/19 16:16 Pulse Rate 52 03/10/19 17:32 Respiratory Rate 28 03/10/19 17:32 Blood Pressure 146/39 03/10/19 17:32 O2 Sat by Pulse Oximetry 95 03/10/19 17:32 Oxygen Delivery Oxygen Delivery Simple Mask Weakness - MDM Narrative Medical decision making narrative: 69-year-old male who presents for increasing shortness of breath, fever, increased sputum, cough. Patient was just recently admitted to the hospital. There is concern for hospital-acquired pneumonia. We will perform a chest x- ray, EKG, CBC, BMP, troponin, blood cultures, lactic acid. Suspect that patient will need to be admitted for further workup and treatment. Patient's LFTs and transaminases were elevated, patient will need a CT of the abdomen and pelvis. Patient's chest x-ray showed an increase in the cardiac silhouette which increase the suspicion for pneumonia given the patient's fevers, chills, increased sputum production, cough. Patient will be treated with vancomycin and Zosyn while in the department. Additionally patient's UA shows concern for urinary tract infection but patient denies any urinary symptom s. Patient's oxygen saturation improved during course of treatment in the emergency department and he was eventually weaned down to nasal cannula. Patient was admitted to the hospitalist Dr. Obando who agreed to accept the patient to his service. Results of the workup including any imaging and/or labwork was shared with the patient at bedside. Patient was given an opportunity to ask questions at bedside and all of their concerns were addressed. Patient verbalized understanding and agreement with plan of care. Pt remained stable while in the department. - Medical Records Medical records reviewed: Yes I reviewed the patient's medical records. - Lab Data Lab results reviewed: Yes I reviewed the patient's lab results. Result diagrams: 03/10/19 17:19 03/10/19 17:19 Lab Results 03/10/19 03/10/19 03/10/19 Range/Units 17:15 17:19 17:19 WBC 11.8 H (4.3-11.1) K/mcL RBC 5.11 (4.19-5.50) M/mcL Hgb 12.7 L (12.9-16.9) g/dL Hct 42.4 (37.5-50.1) % MCV 83.0 (83.0-100.0) fL MCH 24.9 L (28.0-33.3) pg MCHC 30.0 L (31.6-35.5) g/dL RDW 15.4 H (11.5-14.5) % Plt Count 197 (140-400) K/mcL MPV 9.8 (9.4-12.4) fL Immature Gran % 0.5 (0-4) % Seg Neutrophils % 90.7 % Lymphocytes % 2.1 % Monocytes % 6.4 % Eosinophils % 0.0 % Basophils % 0.3 % Neutrophils # 10.7 H (1.6-8.9) K/mcL Lymphocytes # 0.3 L (0.6-4.6) K/mcL Monocytes # 0.8 (0.0-1.3) K/mcL Eosinophils # 0.0 (0.0-0.6) K/mcL Basophils # 0.0 (0.0-0.2) K/mcL PT 22.8 H (9.4-12.1) Seconds INR 2.0 APTT 29.1 (26.0-36.0) Seconds Sodium (136-145) mEq/L Potassium (3.5-5.1) mEq/L Chloride (98-107) mEq/L Carbon Dioxide (23-29) mEq/L BUN (8-23) mg/dL Creatinine (0.70-1.30) mg/dL Est GFR ( Amer) (> 60) Est GFR (Non-Af Amer) (> 60) BUN/Creatinine Ratio (6-26) Glucose (70-105) mg/dL Calculated Osmolality (280-300) Lactic Acid (0.5-2.2) mmol/L Calcium (8.6-10.3) mg/dL Phosphorus (2.7-4.5) mg/dL Magnesium (1.6-2.6) mg/dL Total Bilirubin (0.3-1.0) mg/dL Direct Bilirubin (0.0-0.2) mg/dL Indirect Bilirubin (0.0-1.2) mg/dL AST (13-39) Units/L ALT (7-52) Units/L Alkaline Phosphatase (34-104) Units/L Troponin I (< 0.04) ng/mL B-Natriuretic Peptide (Less than 100) pg/mL Serum Total Protein (6.4-8.9) g/dL Albumin (3.5-5.7) g/dL Globulin (2.4-3.5) g/dL Albumin/Globulin Ratio (1.1-2.2) Procalcitonin 0.40 H (0.00-0.15) ng/mL Urine Color (Yellow) Urine Clarity (Clear) Urine pH (5.0-8.0) pH Units Ur Specific [place] (1.010-1.025) Urine Protein (Neg-Trace) mg/dL Urine Glucose (UA) (Normal) mg/dL Urine Ketones (Negative) mg/dL Urine Blood (Negative) Urine Nitrite (Negative) Urine Bilirubin (Negative) Urine Urobilinogen (Normal) mg/dL Ur Leukocyte Esterase (Negative) Urine Microscopic RBC (0-3) per hpf Urine Microscopic WBC (0-3) per hpf Ur Squamous Epith Cells (None-Few) per lpf Urine Bacteria (None-Few) per hpf Hyaline Casts (None-Few) per lpf Ur Culture Indicated? (NO) 03/10/19 03/10/19 03/10/19 Range/Units 17:19 17:19 17:19 WBC (4.3-11.1) K/mcL RBC (4.19-5.50) M/mcL Hgb (12.9-16.9) g/dL Hct (37.5-50.1) % MCV (83.0-100.0) fL MCH (28.0-33.3) pg MCHC (31.6-35.5) g/dL RDW (11.5-14.5) % Plt Count (140-400) K/mcL MPV (9.4-12.4) fL Immature Gran % (0-4) % Seg Neutrophils % % Lymphocytes % % Monocytes % % Eosinophils % % Basophils % % Neutrophils # (1.6-8.9) K/mcL Lymphocytes # (0.6-4.6) K/mcL Monocytes # (0.0-1.3) K/mcL Eosinophils # (0.0-0.6) K/mcL Basophils # (0.0-0.2) K/mcL PT (9.4-12.1) Seconds INR APTT (26.0-36.0) Seconds Sodium 132 L (136-145) mEq/L Potassium 4.6 (3.5-5.1) mEq/L Chloride 93 L (98-107) mEq/L Carbon Dioxide 27 (23-29) mEq/L BUN 33 H (8-23) mg/dL Creatinine 1.50 H (0.70-1.30) mg/dL Est GFR ( Amer) 56 L (> 60) Est GFR (Non-Af Amer) 46 L (> 60) BUN/Creatinine Ratio 22 (6-26) Glucose 262 H (70-105) mg/dL Calculated Osmolality 290 (280-300) Lactic Acid 1.7 (0.5-2.2) mmol/L Calcium 8.8 (8.6-10.3) mg/dL Phosphorus 2.9 (2.7-4.5) mg/dL Magnesium 1.5 L (1.6-2.6) mg/dL Total Bilirubin 1.9 H (0.3-1.0) mg/dL Direct Bilirubin 1.1 H (0.0-0.2) mg/dL Indirect Bilirubin 0.8 (0.0-1.2) mg/dL AST 157 H (13-39) Units/L ALT 114 H (7-52) Units/L Alkaline Phosphatase 155 H (34-104) Units/L Troponin I 0.03 (< 0.04) ng/mL B-Natriuretic Peptide 551 H (Less than 100) pg/mL Serum Total Protein 7.5 (6.4-8.9) g/dL Albumin 3.7 (3.5-5.7) g/dL Globulin 3.8 H (2.4-3.5) g/dL Albumin/Globulin Ratio 1.0 L (1.1-2.2) Procalcitonin (0.00-0.15) ng/mL Urine Color (Yellow) Urine Clarity (Clear) Urine pH (5.0-8.0) pH Units Ur Specific [place] (1.010-1.025) Urine Protein (Neg-Trace) mg/dL Urine Glucose (UA) (Normal) mg/dL Urine Ketones (Negative) mg/dL Urine Blood (Negative) Urine Nitrite (Negative) Urine Bilirubin (Negative) Urine Urobilinogen (Normal) mg/dL Ur Leukocyte Esterase (Negative) Urine Microscopic RBC (0-3) per hpf Urine Microscopic WBC (0-3) per hpf Ur Squamous Epith Cells (None-Few) per lpf Urine Bacteria (None-Few) per hpf Hyaline Casts (None-Few) per lpf Ur Culture Indicated? (NO) 03/10/19 Range/Units 18:08 WBC (4.3-11.1) K/mcL RBC (4.19-5.50) M/mcL Hgb (12.9-16.9) g/dL Hct (37.5-50.1) % MCV (83.0-100.0) fL MCH (28.0-33.3) pg MCHC (31.6-35.5) g/dL RDW (11.5-14.5) % Plt Count (140-400) K/mcL MPV (9.4-12.4) fL Immature Gran % (0-4) % Seg Neutrophils % % Lymphocytes % % Monocytes % % Eosinophils % % Basophils % % Neutrophils # (1.6-8.9) K/mcL Lymphocytes # (0.6-4.6) K/mcL Monocytes # (0.0-1.3) K/mcL Eosinophils # (0.0-0.6) K/mcL Basophils # (0.0-0.2) K/mcL PT (9.4-12.1) Seconds INR APTT (26.0-36.0) Seconds Sodium (136-145) mEq/L Potassium (3.5-5.1) mEq/L Chloride (98-107) mEq/L Carbon Dioxide (23-29) mEq/L BUN (8-23) mg/dL Creatinine (0.70-1.30) mg/dL Est GFR ( Amer) (> 60) Est GFR (Non-Af Amer) (> 60) BUN/Creatinine Ratio (6-26) Glucose (70-105) mg/dL Calculated Osmolality (280-300) Lactic Acid (0.5-2.2) mmol/L Calcium (8.6-10.3) mg/dL Phosphorus (2.7-4.5) mg/dL Magnesium (1.6-2.6) mg/dL Total Bilirubin (0.3-1.0) mg/dL Direct Bilirubin (0.0-0.2) mg/dL Indirect Bilirubin (0.0-1.2) mg/dL AST (13-39) Units/L ALT (7-52) Units/L Alkaline Phosphatase (34-104) Units/L Troponin I (< 0.04) ng/mL B-Natriuretic Peptide (Less than 100) pg/mL Serum Total Protein (6.4-8.9) g/dL Albumin (3.5-5.7) g/dL Globulin (2.4-3.5) g/dL Albumin/Globulin Ratio (1.1-2.2) Procalcitonin (0.00-0.15) ng/mL Urine Color Dark Yellow (Yellow) Urine Clarity Cloudy A (Clear) Urine pH 5.5 (5.0-8.0) pH Units Ur Specific [place] 1.022 (1.010-1.025) Urine Protein 100 H (Neg-Trace) mg/dL Urine Glucose (UA) Normal (Normal) mg/dL Urine Ketones Trace H (Negative) mg/dL Urine Blood Large H (Negative) Urine Nitrite Positive A (Negative) Urine Bilirubin Moderate H (Negative) Urine Urobilinogen Normal (Normal) mg/dL Ur Leukocyte Esterase Small H (Negative) Urine Microscopic RBC 5-15 H (0-3) per hpf Urine Microscopic WBC 5-15 H (0-3) per hpf Ur Squamous Epith Cells Moderate H (None-Few) per lpf Urine Bacteria None Seen (None-Few) per hpf Hyaline Casts None Seen (None-Few) per lpf Ur Culture Indicated? YES A (NO) - Radiology Data Radiology results reviewed: Yes I reviewed the patient's radiology results. Chest X-Ray 03/10/19 16:23 IMPRESSION: 1. Very low lung volumes limits evaluation. 2. Cardiomegaly with congestive heart failure. Superimposed infection would be difficult to exclude. D/ / 03/10/2019 17:16:48 Юлия Caldwell MD / Gerri Garibay Interpreting Provider: Юлия Caldwell MD - EKG Data EKG attestation: Yes I reviewed and interpreted this EKG. EKG results narrative: Heart rate 54, rhythm atrial flutter, axis left at -87. QRS 161 and prolonged, QTC 516 and prolonged. PVCs present. When compared to previous study dated 03/01/2019 previous study shows that the patient was in sinus rhythm with a prolonged QRS and QTc as well as a right bundle branch block and left anterior fascicular block. Atrial fibrillation is new on current study.
[2019-03-10] MEDS ORDERED: Piperacillin/Tazobactam 3.375 GM in 0.9 % Sodium Chloride Mini Bag 100 ML IVPB ONE (18:08)
[2019-03-10 18:19] LABS: Bilirubin,Urine Moderate (Negative); Blood,Urine Large (Negative); Clarity,Urine Cloudy (Clear); Color,Urine Dark Yellow (Yellow); Glucose,Urine (UA) Normal (Normal); Ketones,Urine Trace mg/dL (Negative); Leukocyte Esterase,Urine Small (Negative); Nitrite,Urine Positive (Negative); PH,Urine 5.5 pH Units (5.0-8.0); Protein,Urine 100 mg/dL (Neg-Trace); Specific Gravity,Urine 1.022 (1.010-1.025); Urobilinogen,Urine Normal (Normal)
[2019-03-10 18:21] LABS: Bacteria,Urine None Seen per hpf (None-Few); Hyaline Casts,Urine None Seen per lpf (None-Few); Squamous Epithelial Cell,Urine Moderate per lpf (None-Few)
[2019-03-10] MEDS: Acetaminophen 325 MG TABLET PO PRN (21:51)
[2019-03-10] MEDS ORDERED: *HR* HYDROcodone/Acet 5/325 mg TABLET PO PRN (23:40)
[2019-03-10] MEDS ORDERED: Naloxone 0.4 MG/ML INJ IVP PRN (23:40)
[2019-03-10] MEDS ORDERED: Dextrose Gel 15 GM/37.5 ML TUBE PO PRN ×2 (23:46)
[2019-03-10] MEDS ORDERED: *HR* Dextrose 50 % in Water (Syg) 50 ML SYRINGE IVP PRN (23:46)
[2019-03-10] MEDS ORDERED: D5% in Water 1,000 ML IVC PRN (23:46)
--- NOTE | 2019-03-10 23:55 | Internal Med History&Physical ---
Date of Encounter: 03/10/19 Time of Encounter: 22:45 Internal Medicine - H&P: HPI Chief complaint: Difficulty breathing Admitted From: Emergency Dept Plans for Post Hospital Care: Home History of present illness: Mr. Cruz is a 69 year old male Patient presented to the emergency department with difficulty breathing. He was recently admitted to the hospital and discharged about one week ago for COPD exacerbation. He had his Lasix dose increased, and says that he did well over the following days up until about 2 days ago when he began feeling short of breath, weak and more lethargic than normal. He does not have his own oxygen at home but he says that he has been using his 's oxygen which seems to help his symptoms. He came to the emergency department for further evaluation as his symptoms were not improving. In the emergency department patient's initial vital signs: Temperature 99.9, pulse 50, respiratory rate 16, blood pressure 141/58, oxygen saturation 83% on room air. Oxygen saturation improved to 95% on nonrebreather mask. CBC: White count 11.8, hemoglobin 12.7 platelets 197. INR 2.0 BMP: Notable for elevated creatinine of 1.50 and a glucose of 262 Total bilirubin 1.9 AST 157 ALT 114 Alkaline phosphatase 155 Troponin 0.03 BNP 551 Urinalysis: 100 protein, trace ketones, large blood, positive nitrite, moderate bilirubin, small leukocyte esterase, 5-15 white blood cells. Culture indicated Chest x-ray: Low lung volumes limit evaluation, cardiomegaly with congestive heart failure. Superimposed infection would be difficult to exclude Abdomen pelvis CT: Hepatic steatosis and hepatomegaly, typical postcholecystectomy changes of the common bile duct, bibasilar infiltrates, pneumonitis EKG heart rate 54, atrial flutter, prolonged QTC 516 In the emergency department patient was given a dose of Zosyn and vancomycin blood cultures and urine cultures were obtained as well as a MRSA surveillance screen. He was admitted to the hospital for further management. Upon my evaluation, patient is resting comfortably in the hospital bed in no acute distress. He denies chest pain, abdominal pain, diarrhea and constipation. He was somewhat nauseous and tried to vomit earlier in the day but has not been successful. He does have some pain with urination as well as a decreased urine stream. He states that he is feeling more lethargic, and says he just "cannot get his legs going." He is a full code. Past Med Surg Social Fam HX - Past Medical History Medical history: atrial fibrillation, diabetes, hyperlipidemia, hypertension Additional medical history: Thyroid issues, left thumb amputation Psychiatric history: no psych history - Past Surgical History Surgical History: cholecystectomy Additional surgical history: Evacuation of abd hematoma, left thumb revision, coardiac ablation. - Social History Smoking Status: Never smoker Smokeless Tobacco Status: No Alcohol use: none Drug use: none - Family History Mother Adopted: No Family Member Ethnicity: Non- Living Status: Hx Family Cardiac Disorders: Yes Hx Family Respiratory Disorders: Yes Hx Family Cancer: No Hx Family GI Disorders: No Hx Family Endocrine Disorder: No Hx Family Neuromuscular Disorders: No Hx Family Neurologic Disorders: No Hx Family HEENT Disorders: No Hx Family Autoimmune Disorders: No Father Living Status: Still Living Hx Family Cardiac Disorders: Yes Hx Family Respiratory Disorders: No Hx Family Cancer: No Hx Family GI Disorders: Yes Hx Family Endocrine Disorder: No Hx Family Neuromuscular Disorders: No Hx Family Neurologic Disorders: No Hx Family HEENT Disorders: No Hx Family Autoimmune Disorders: No Internal Medicine - H&P: Meds Amiodarone [Cordarone] 200 mg PO DAILY 02/13/18 [History] Atorvastatin [Lipitor] 40 mg PO HS 02/13/18 [History] Losartan Potassium [Cozaar] 100 mg PO DAILY 02/13/18 [History] Metoprolol [Lopressor] 25 mg PO DAILY 02/13/18 [History] Sertraline [Zoloft] 150 mg PO DAILY 02/13/18 [History] Warfarin [Coumadin] 3 mg PO SUMOWEFR 02/13/18 [History] Warfarin [Coumadin] 1.5 mg PO TUTHSA 03/01/19 [History] Fluticasone Propionate Nasal [Flonase] 100 mcg PO DAILY PRN 03/03/19 [History] Insulin NPH Hum/Reg Insulin Hm [Novolin 70-30 Flexpen] 40 units SQ QPM 03/03/19 [History] Insulin NPH Hum/Reg Insulin Hm [Novolin 70-30 Flexpen] 50 units SQ QAM 03/03/19 [History] Levothyroxine [Synthroid] 100 mcg PO QAM 03/03/19 [History] Montelukast [Singulair] 10 mg PO QPM 03/03/19 [History] Furosemide [Lasix] 20 mg PO BID #60 tablet 03/04/19 [Rx] Levothyroxine [Synthroid] 75 mcg PO 0630 tablet 03/04/19 [Rx] Allergy/AdvReac Type Severity Reaction Status Date / Time cefazolin [From Ancef] Allergy Hives Verified 03/03/19 16:17 rosuvastatin [From Crestor] Allergy Hives Verified 03/03/19 16:17 Sulfa (Sulfonamide Allergy Hives Verified 03/03/19 16:17 Antibiotics) All Systems PM: A 10-system review of systems was performed and is negative for pertinent findings except as documented above in the HPI. - Constitutional Vitals: Temp Pulse Resp BP Pulse Ox 102.9 F H 59 20 105/65 93 03/10/19 21:01 03/10/19 21:01 03/10/19 21:01 03/10/19 21:01 03/10/19 21:01 General appearance: Present: cooperative, A&O X 3, pleasant, no acute distress, answers questions appropriately Exam: - - Head Head exam: Present: normal inspection - Eye Eye exam: Present: EOMI, normal appearance - Respiratory Respiratory exam: Present: decreased breath sounds, CTAB. Absent: rales, respiratory distress, rhonchi, wheezes - Cardiovascular Cardiovascular exam: Present: RRR. Absent: diastolic murmur, systolic murmur - GI/Abdominal GI/Abdominal exam: Present: normal bowel sounds, soft. Absent: tenderness - Extremities Exam Extremities exam: Present: warm, radial pulses palpable and symmetrical. Absent: calf tenderness, pedal edema, tenderness Additional comments: small wound on medial ankle, no signs of infection - Neurological Exam Neurological exam: Present: motor sensory deficit, facial droop, speech deficit. Absent: no focal deficits, strengths equal and symetr throughout - Skin Skin exam: Present: dry, normal color, warm Internal Med - H&P Results - Labs CBC & Chem 7: 03/10/19 17:19 03/10/19 17:19 Labs: Short CBC 03/10/19 Range/Units 17:19 WBC 11.8 H (4.3-11.1) K/mcL Hgb 12.7 L (12.9-16.9) g/dL Hct 42.4 (37.5-50.1) % Plt Count 197 (140-400) K/mcL Neutrophils # 10.7 H (1.6-8.9) K/mcL BMP 03/10/19 17:19 Sodium 132 L Potassium 4.6 Chloride 93 L Carbon Dioxide 27 BUN 33 H Creatinine 1.50 H Glucose 262 H Calcium 8.8 Cardiac Enzymes 03/10/19 Range/Units 17:19 Troponin I 0.03 (< 0.04) ng/mL Liver Function 03/10/19 Range/Units 17:19 Total Bilirubin 1.9 H (0.3-1.0) mg/dL Direct Bilirubin 1.1 H (0.0-0.2) mg/dL AST 157 H (13-39) Units/L ALT 114 H (7-52) Units/L Alkaline Phosphatase 155 H (34-104) Units/L Albumin 3.7 (3.5-5.7) g/dL Urine 03/10/19 Range/Units 18:08 Urine Color Dark Yellow (Yellow) Urine Clarity Cloudy A (Clear) Urine pH 5.5 (5.0-8.0) pH Units Ur Specific [place] 1.022 (1.010-1.025) Urine Protein 100 H (Neg-Trace) mg/dL Urine Glucose (UA) Normal (Normal) mg/dL - Impressions ITS Impressions Chest X-Ray 03/10/19 16:23 IMPRESSION: 1. Very low lung volumes limits evaluation. 2. Cardiomegaly with congestive heart failure. Superimposed infection would be difficult to exclude. D/ : / 03/10/2019 17:16:48 Юлия Caldwell MD / Gerri Garibay Interpreting Provider: Юлия Caldwell MD Abdomen/Pelvis CT 03/10/19 18:31 IMPRESSION: 1. Hepatic steatosis and hepatomegaly may account for elevated liver function tests. 2. Mild extrahepatic bile duct dilatation typical of reservoir effect status post cholecystectomy. 3. Calcific atherosclerosis aorta and its branches including the coronary arteries. 4. Bibasilar infiltrate or atelectasis, pneumonitis being a consideration. 5. Remainder of the CT abdomen and pelvis appears unremarkable. D/ / Yaw Yoon / Yaw Yoon Interpreting Provider: Yaw Yoon - Assessment and Plan (1) Pneumonia Current Visit: Yes Status: Acute Assessment and plan: As seen on chest x-ray and abdominal CT, patient has possible superimposed infection and pneumonitis. Patient has had shortness of breath, likely secondary to CHF as well. Patient was started on zosyn and vanc in the ER. Blood cultures were drawn. Follow up blood cultures Continue IV antibiotics, add levaquin Oxygen supplementation as needed Monitor for worsening signs of infection Tylenol for fever Qualifiers: Pneumonia type: due to unspecified organism Laterality: bilateral Lung location: lower lobe of lung Qualified Code(s): J18.1 - Lobar pneumonia, unspecified organism (2) Dyspnea Current Visit: Yes Status: Acute Assessment and plan: Likely secondary to pneumonia and history of CHF, patient had elevated BNP up from his recent admission. Treating pneumonia as above Holding lasix due to ZAC and elevated liver enzymes. Oxygen supplementation as needed. Qualifiers: Dyspnea type: unspecified Qualified Code(s): R06.00 - Dyspnea, unspecified (3) UTI (urinary tract infection) Current Visit: Yes Status: Acute Assessment and plan: Urinalysis positive for infection, with positive nitrites, leukocyte esterase and 5-50 white blood cells. Patient also has some dysuria. Started on Zosyn in the emergency room. Follow up urine cultures Continue zosyn Qualifiers: Urinary tract infection type: site unspecified Hematuria presence: without hematuria Qualified Code(s): N39.0 - Urinary tract infection, site not specified (4) Total bilirubin, elevated Current Visit: Yes Status: Acute Assessment and plan: Could be secondary to liver injury due to increasing the patient's Lasix dose. Hold Lasix Right upper quadrant ultrasound in the morning (5) Transaminitis Current Visit: Yes Status: Acute Assessment and plan: Could be side effect of Lasix, which can cause increase of liver enzymes. We will hold Lasix, repeat labs in the morning. Patient not jaundiced on exam. Right upper quadrant ultrasound in the morning (6) Diastolic CHF Current Visit: No Status: Acute Assessment and plan: BNP elevated at 551 which is up from 106 when he was here. He had increased his dose of Lasix while he was at home which appears to have also caused a kidney injury. We will hold off on further diuresis, breath sounds are clear, patient does not appear to be fluid overloaded. Echocardiogram from patient's last visit: Impressions: Technically sub-optimal due to body habitus. Definity echo contrast was used. LVEF 60%. Indeterminate diastolic function. Right ventricular structure and function not well visualized. Mild aortic stenosis by Doppler. Mild mitral regurgitation. No pulmonary hypertension by TR signal obtained. Continue to monitor Oxygen supplementation as needed Will need careful diuresis with regards to liver and kidney function. Qualifiers: Heart failure chronicity: acute Qualified Code(s): I50.31 - Acute diastolic (congestive) heart failure (7) Type 2 diabetes mellitus Current Visit: No Status: Chronic Assessment and plan: Patient is an insulin dependent diabetic Monitor sugars ACHS Diabetic diet Low dose insulin sliding scale as needed Hold home meds. 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
[2019-03-11 06:42] LABS: Hematocrit 40.7 % (37.5-50.1); Hemoglobin 12.1 g/dL (12.9-16.9); Mean Corpuscular HGB Conc 29.7 g/dL (31.6-35.5); Mean Corpuscular Hemoglobin 24.5 pg (28.0-33.3); Mean Corpuscular Volume 82.4 fL (83.0-100.0); Mean Platelet Volume 9.8 fL (9.4-12.4); Platelet Count 167 K/mcL (140-400); Red Blood Count 4.94 M/mcL (4.19-5.50); Red Cell Distribution Width 15.6 % (11.5-14.5); White Blood Count 14.2 K/mcL (4.3-11.1)
[2019-03-11 06:49] LABS: INR 1.9; Prothrombin Time 21.2 Seconds (9.4-12.1)
[2019-03-11 07:02] LABS: Albumin 3.4 g/dL (3.5-5.7); Albumin/Globulin Ratio 0.8 (1.1-2.2); Bilirubin,Total 1.5 mg/dL (0.3-1.0); Calcium 8.8 mg/dL (8.6-10.3); Globulin 4.1 g/dL (2.4-3.5); Potassium 4.5 mEq/L (3.5-5.1); Total Protein 7.5 g/dL (6.4-8.9)
[2019-03-11 07:26] LABS: Acinetobacter baumannii by PCR Not Detected (Not Detect); Candida albicans by PCR Not Detected (Not Detect); Candida glabrata by PCR Not Detected (Not Detect); Candida krusei by PCR Not Detected (Not Detect); Candida parapsilosis by PCR Not Detected (Not Detect); Candida tropicalis by PCR Not Detected (Not Detect); Enterobacter cloacae Cmplx PCR Not Detected (Not Detect); Enterobacteriaceae by PCR Not Detected (Not Detect); Enterococcus by PCR Not Detected (Not Detect); Escherichia coli by PCR Not Detected (Not Detect); Klebsiella oxytoca by PCR Not Detected (Not Detect); Klebsiella pneumoniae by PCR Not Detected (Not Detect); Proteus by PCR Not Detected (Not Detect); Pseudomonas aeruginosa by PCR Not Detected (Not Detect); Serratia marcescens by PCR Not Detected (Not Detect); Staphylococcus aureus by PCR DETECTED (Not Detect); Staphylococcus by PCR Not Detected (Not Detect); Streptococcus agalactiae(B)PCR Not Detected (Not Detect); Streptococcus by PCR Not Detected (Not Detect); Streptococcus pneumoniae PCR Not Detected (Not Detect); Streptococcus pyogenes (A) PCR Not Detected (Not Detect); mecA Methicillin-Resist Gene Not Detected (Not Detect)
[2019-03-11] MEDS ORDERED: Insulin DETEMIR 100 UNIT/ML X5UNITS SQ ONE (07:59)
[2019-03-11] MEDS ORDERED: levoFLOXacin 750 MG/150 ML 750 MG/150 ML BAG IVPB SCH (09:00)
[2019-03-11] MEDS: Insulin LISPRO 300 UNITS/3 ML VIAL SQ SCH ×3 (09:14→16:50)
[2019-03-11] MEDS ORDERED: Aminoglycoside Consult 1 EACH MC ONE (09:27)
[2019-03-11] MEDS: Piperacillin/Tazobactam 3.375 GM in 0.9 % Sodium Chloride Mini Bag 100 ML IVPB SCH ×2 (11:07→16:48)
[2019-03-11] MEDS: 0.9 % Sodium Chloride 1,000 ML IVC SCH (11:08)
[2019-03-11] MEDS: Acetaminophen 325 MG TABLET PO PRN ×2 (11:25→21:51)
--- NOTE | 2019-03-11 16:53 | Internal Med Progress Note ---
Hospitalist Progress Note - Encounter Date of Encounter: 03/11/19 Time of Encounter: 16:51 - Subjective Interval History: Evaluated patient earlier today. Patient doing better overall. Continues to have shortness of breath. Patient noted to have erythema and swelling on his right upper extremity at site of previous intravenous catheter insertion. Mi ldly tender to palpation. - Exam Vitals: Temp Pulse Resp BP Pulse Ox 97.5 F L 53 20 128/69 95 03/11/19 15:58 03/11/19 15:58 03/11/19 15:58 03/11/19 15:58 03/11/19 15:58 Exam: General: Patient is alert, no acute distress, oriented x 3 Respiratory: Good respiratory effort. Normal breath sounds. End-expiratory wheezing noted Cardiovascular: Regular rate and rhythm. s1 and s2 normal No clicks, rubs, gallops, or murmurs. No pedal edema Abdomen: Abdomen is soft, nontender. Bowel sounds are present Musculoskeletal: Spontaneously moving all extremities Skin: warm, dry, intact. Erythema noted on the right upper extremity at the right antecubital fossa over site of previous intravenous catheter insertion. Concern for superficial thrombophlebitis Neuro: Alert oriented x 3 normal cranial nerves, no focal deficits - Assessment and Plan (1) Pneumonia Current Visit: Yes Status: Suspected (2) UTI (urinary tract infection) Current Visit: Yes Status: Acute (3) Type 2 diabetes mellitus Current Visit: Yes Status: Chronic (4) DVT prophylaxis Current Visit: No Status: Acute (5) Diastolic CHF Current Visit: Yes Status: Acute (6) Dyspnea Current Visit: Yes Status: Acute (7) Transaminitis Current Visit: Yes Status: Acute (8) Total bilirubin, elevated Current Visit: Yes Status: Acute DVT Prophylaxis: Patient is on Coumadin. - Summary of Assessment and Plan Summary of Assessment and Plan: Acute hypoxic respiratory failure: Due to pneumonia. Continue O2 supplementation. Wean FiO2 as tolerated. Ordered incentive spirometry. Sepsis due to pneumonia and underlying UTI: Continue current antibiotics. Blood cultures growing gram-positive cocci presumed to be Streptococcus. We will await final culture results. Diastolic congestive heart failure: Creatinine elevated again today at 1.75. Continue to hold diuretics. Gentle IV hydration. Atrial fibrillation: Chronic. Rate controlled. On and correlation with Coumadin. Continue. Diabetes mellitus type 2: Blood sugars are elevated. Place patient on sliding scale insulin and long-acting insulin. Diabetic diet. High risk for complications. - Time Spent with Patient Total time spent is greater than 50% in coordination of care (as documented) at patient's floor/unit and/or counseling patient: Internal Medicine: Result - Labs CBC & Chem 7: 03/11/19 06:23 03/11/19 06:23 Labs: Short CBC 03/10/19 03/11/19 Range/Units 17:19 06:23 WBC 11.8 H 14.2 H (4.3-11.1) K/mcL Hgb 12.7 L 12.1 L (12.9-16.9) g/dL Hct 42.4 40.7 (37.5-50.1) % Plt Count 197 167 (140-400) K/mcL Neutrophils # 10.7 H (1.6-8.9) K/mcL BMP 03/10/19 03/11/19 17:19 06:23 Sodium 132 L 135 L Potassium 4.6 4.5 Chloride 93 L 93 L Carbon Dioxide 27 30 H BUN 33 H 43 H Creatinine 1.50 H 1.75 H Glucose 262 H 276 H Calcium 8.8 8.8 Cardiac Enzymes 03/10/19 Range/Units 17:19 Troponin I 0.03 (< 0.04) ng/mL Liver Function 03/10/19 03/11/19 Range/Units 17:19 06:23 Total Bilirubin 1.9 H 1.5 H (0.3-1.0) mg/dL Direct Bilirubin 1.1 H (0.0-0.2) mg/dL AST 157 H 118 H (13-39) Units/L ALT 114 H 111 H (7-52) Units/L Alkaline Phosphatase 155 H 151 H (34-104) Units/L Albumin 3.7 3.4 L (3.5-5.7) g/dL Urine 03/10/19 Range/Units 18:08 Urine Color Dark Yellow (Yellow) Urine Clarity Cloudy A (Clear) Urine pH 5.5 (5.0-8.0) pH Units Ur Specific [place] 1.022 (1.010-1.025) Urine Protein 100 H (Neg-Trace) mg/dL Urine Glucose (UA) Normal (Normal) mg/dL - ABG Interpretation ABG results: PT/INR, D-dimer PT 21.2 Seconds (9.4-12.1) H 03/11/19 06:23 - Impressions Impressions Chest X-Ray 03/10/19 16:23 IMPRESSION: 1. Very low lung volumes limits evaluation. 2. Cardiomegaly with congestive heart failure. Superimposed infection would be difficult to exclude. D/ /10/2019 17:16:48 Юлия Caldwell MD / Gerri Garibay Interpreting Provider: Юлия Caldwell MD Abdomen/Pelvis CT 03/10/19 18:31 IMPRESSION: 1. Hepatic steatosis and hepatomegaly may account for elevated liver function tests. 2. Mild extrahepatic bile duct dilatation typical of reservoir effect status post cholecystectomy. 3. Calcific atherosclerosis aorta and its branches including the coronary arteries. 4. Bibasilar infiltrate or atelectasis, pneumonitis being a consideration. 5. Remainder of the CT abdomen and pelvis appears unremarkable. D/ / Yaw Yoon / Yaw Yoon Interpreting Provider: Yaw Yoon Liver Ultrasound 03/11/19 09:30 IMPRESSION: 1. Limited exam due to overlying bowel gas. 2. Findings consistent with hepatic steatosis. 3. Prior cholecystectomy. Normal common bile duct. D/ / 03/11/2019 11:04:05 Grey So MD / ofelia Interpreting Provider: Grey So MD Consult Discharge Plan - Plan Referrals: Richard Tran DO [Primary Care Provider] - (1) Pneumonia Qualifiers: Pneumonia type: due to methicillin-sensitive Staphylococcus aureus (MSSA) Laterality: bilateral Lung location: lower lobe of lung Qualified Code(s): J15.211 - Pneumonia due to Methicillin susceptible Staphylococcus aureus (2) UTI (urinary tract infection) Qualifiers: Urinary tract infection type: site unspecified Hematuria presence: without hematuria Qualified Code(s): N39.0 - Urinary tract infection, site not specified (3) Type 2 diabetes mellitus Qualifiers: Diabetes mellitus senior care insulin use: with senior care use Diabetes mellitus complication status: without complication Qualified Code(s): E11.9 - Type 2 diabetes mellitus without complications; 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
[2019-03-11] MEDS ORDERED: Fluticasone Propionate Nasal 50 MCG/SPRAY BOTTLE NS PRN (17:04)
[2019-03-11] MEDS ORDERED: Doxycycline 100 MG in 0.9 % Sodium Chloride Mini Bag 100 ML IVPB SCH (18:00)
[2019-03-11] MEDS ORDERED: Warfarin perPT PO PRN (18:00)
[2019-03-11] MEDS ORDERED: *HR* Warfarin 3 MG TABLET PO ONE (18:00)
[2019-03-11] MEDS ORDERED: Perflutren Lipid Microsphere 1.3 ML in 0.9 % Sodium Chloride 8.7 ML IVP ONE (19:38)
[2019-03-11] MEDS ORDERED: Insulin LISPRO 300 UNITS/3 ML VIAL SQ SCH (21:00)
[2019-03-11] MEDS: Doxycycline 100 MG in 0.9 % Sodium Chloride Mini Bag 100 ML IVPB SCH (21:42)
[2019-03-11] MEDS: Insulin DETEMIR 100 UNIT/ML X5UNITS SQ SCH (21:51)
[2019-03-12] MEDS: 0.9 % Sodium Chloride 1,000 ML IVC SCH ×2 (00:16→16:10)
[2019-03-12] MEDS: Piperacillin/Tazobactam 3.375 GM in 0.9 % Sodium Chloride Mini Bag 100 ML IVPB SCH ×3 (00:16→16:09)
[2019-03-12 05:13] LABS: Basophils % 0.2 %; Eosinophils # 0.1 K/mcL (0.0-0.6); Eosinophils % 0.6 %; Hematocrit 37.8 % (37.5-50.1); Hemoglobin 11.3 g/dL (12.9-16.9); Immature Granulocytes % 0.6 % (0-4); Lymphocytes # 0.7 K/mcL (0.6-4.6); Lymphocytes % 6.4 %; Mean Corpuscular HGB Conc 29.9 g/dL (31.6-35.5); Mean Corpuscular Hemoglobin 25.2 pg (28.0-33.3); Mean Corpuscular Volume 84.4 fL (83.0-100.0); Mean Platelet Volume 10.3 fL (9.4-12.4); Monocytes # 1.1 K/mcL (0.0-1.3); Monocytes % 10.2 %; Neutrophils # 8.6 K/mcL (1.6-8.9); Platelet Count 178 K/mcL (140-400); Red Blood Count 4.48 M/mcL (4.19-5.50); Red Cell Distribution Width 15.3 % (11.5-14.5); White Blood Count 10.4 K/mcL (4.3-11.1)
[2019-03-12 05:19] LABS: INR 2.6; Prothrombin Time 29.4 Seconds (9.4-12.1)
[2019-03-12 05:28] LABS: Calcium 8.6 mg/dL (8.6-10.3)
[2019-03-12] MEDS: Doxycycline 100 MG in 0.9 % Sodium Chloride Mini Bag 100 ML IVPB SCH (08:15)
[2019-03-12] MEDS: Insulin LISPRO 300 UNITS/3 ML VIAL SQ SCH ×4 (08:15→21:12)
[2019-03-12] MEDS: *HR* Amiodarone 200 MG TABLET PO SCH (08:15)
[2019-03-12] MEDS: Insulin DETEMIR 100 UNIT/ML X5UNITS SQ SCH ×2 (08:16→21:12)
--- NOTE | 2019-03-12 12:39 | Internal Med Progress Note ---
Hospitalist Progress Note - Encounter Date of Encounter: 03/12/19 Time of Encounter: 12:35 - Subjective Interval History: Patient is awake and alert. Reports an episode of sudden onset nausea and epigastric discomfort earlier today after he ate his breakfast. It subsided now. Patient reports that he has been having these episodes intermittently but very rarely. He previously used to have gastroesophageal reflux disease but this resolved after he had cholecystectomy done. He is presently not on any PPI. With regards to his breathing, he is able to breathe better. No chest pain or palpitations. - Exam Vitals: Temp Pulse Resp BP Pulse Ox 98.6 F 63 19 131/79 96 03/12/19 10:57 03/12/19 10:57 03/12/19 10:57 03/12/19 10:57 03/12/19 10:57 Exam: General: Patient is alert, no acute distress, oriented x 3 Respiratory: Breath sounds diminished at bases. End-expiratory wheezing present but improved compared to yesterday. Cardiovascular: Regular rate and rhythm. s1 and s2 normal No clicks, rubs, gallops, or murmurs. No pedal edema Abdomen: Abdomen is soft, nontender. Bowel sounds are present Musculoskeletal: Spontaneously moving all extremities Skin: warm, dry, intact. Erythema present on right AC fossa with cord like sensation under skin Neuro: Alert oriented x 3 normal cranial nerves, no focal deficits - Assessment and Plan (1) Pneumonia Current Visit: Yes Status: Suspected (2) UTI (urinary tract infection) Current Visit: Yes Status: Acute (3) Type 2 diabetes mellitus Current Visit: Yes Status: Chronic (4) DVT prophylaxis Current Visit: No Status: Acute (5) Diastolic CHF Current Visit: Yes Status: Acute (6) Dyspnea Current Visit: Yes Status: Acute (7) Transaminitis Current Visit: Yes Status: Acute (8) Total bilirubin, elevated Current Visit: Yes Status: Acute (9) Superficial thrombophlebitis of right upper extremity Current Visit: Yes Status: Acute DVT Prophylaxis: Patient is on Coumadin - Summary of Assessment and Plan Summary of Assessment and Plan: Acute hypoxic respiratory failure: Due to pneumonia. Continue O2 supple mentation. Wean FiO2 as tolerated. Patient is presently on 4 L nasal cannula. Sepsis due to pneumonia and underlying UTI: Continue Zosyn and doxycycline. MRSA screen negative. 2 sets of blood culture growing gram-positive cocci which appears to be MSSA. Await final culture results. Consult infectious disease. 2-D echocardiogram completed-results awaited. Acute kidney injury: Improving. Creatinine 1.44 today. Continue gentle IV hydration. Diastolic congestive heart failure: Continue to hold diuretics. Stop IV fluids tonight. Hepatic steatosis: Liver ultrasound shows hepatic steatosis. liver enzymes trending down. Atrial fibrillation: Chronic. Rate controlled. On anticoagulation with Coumadin. INR therapeutic. Superficial thrombophlebitis involving right upper extremity: Recommend warm compresses. This may also be the source of infection for his MSSA bacteremia. Patient on Coumadin. On antibiotics intravenously. Diabetes mellitus type 2: Blood sugars are elevated. Place patient on sliding scale insulin and long-acting insulin. Diabetic diet. Gastroesophageal reflux disease: Patient reported symptoms of nausea earlier this morning. Most likely related to GERD. Placed patient on PPI. High risk for complications. - Time Spent with Patient Total time spent is greater than 50% in coordination of care (as documented) at patient's floor/unit and/or counseling patient: Internal Medicine: Result - Labs CBC & Chem 7: 03/12/19 04:09 03/12/19 04:09 Labs: Short CBC 03/12/19 Range/Units 04:09 WBC 10.4 (4.3-11.1) K/mcL Hgb 11.3 L (12.9-16.9) g/dL Hct 37.8 (37.5-50.1) % Plt Count 178 (140-400) K/mcL Neutrophils # 8.6 (1.6-8.9) K/mcL BMP 03/12/19 04:09 Sodium 137 Potassium 4.0 Chloride 96 L Carbon Dioxide 32 H BUN 42 H Creatinine 1.44 H Glucose 221 H Calcium 8.6 - ABG Interpretation ABG results: PT/INR, D-dimer PT 29.4 Seconds (9.4-12.1) H 03/12/19 04:09 Consult Discharge Plan - Plan Referrals: Richard Tran DO [Primary Care Provider] - (1) Pneumonia Qualifiers: Pneumonia type: due to methicillin-sensitive Staphylococcus aureus (MSSA) Laterality: bilateral Lung location: lower lobe of lung Qualified Code(s): J15.211 - Pneumonia due to Methicillin susceptible Staphylococcus aureus (2) UTI (urinary tract infection) Qualifiers: Urinary tract infection type: site unspecified Hematuria presence: without hematuria Qualified Code(s): N39.0 - Urinary tract infection, site not s pecified (3) Type 2 diabetes mellitus Qualifiers: Diabetes mellitus continuous churn buttermaker insulin use: with continuous churn buttermaker use Diabetes mellitus complication status: without complication Qualified Code(s): E11.9 - Type 2 diabetes mellitus without complications; 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
[2019-03-12] MEDS: Acetaminophen 325 MG TABLET PO PRN (16:10)
[2019-03-12] MEDS: Doxycycline 100 MG CAPSULE PO SCH (17:12)
[2019-03-12] MEDS ORDERED: Doxycycline 100 MG in 0.9 % Sodium Chloride Mini Bag 100 ML IVPB SCH (18:00)
[2019-03-12] MEDS ORDERED: *HR* Warfarin 1 MG TABLET PO ONE (18:00)
[2019-03-12] MEDS: Lactobacillus 1 EACH CAP.SPRINK PO SCH (21:12)
--- NOTE | 2019-03-13 00:01 | Electrocardiograph Report ---
[facility] Test Date: 2019-03-10 Pat Name: Dre Cruz Department: [id number] Room: 2A34 Gender: M Co Pilot: : 1950 Requested By: Lynnette Parisi Order Number: [id number] Reading MD: Marcin Najera Measurements Intervals [place] Rate: 54 P: SD: QRS: -87 QRSD: 161 T: -5 QT: 544 QTc: 516 Interpretive Statements Atrial fibrillation RBBB and LAFB Baseline wander in lead(s) II III aVF Electronically Signed On 03-12-2019 23:59:40 EDT by Marcin Najera
[2019-03-13] MEDS: Piperacillin/Tazobactam 3.375 GM in 0.9 % Sodium Chloride Mini Bag 100 ML IVPB SCH ×2 (01:19→08:48)
[2019-03-13] MEDS: 0.9 % Sodium Chloride 1,000 ML IVC SCH ×2 (01:21→05:58)
[2019-03-13 02:38] LABS: BUN/Creatinine Ratio 28 (6-26); Blood Urea Nitrogen 37 mg/dL (8-23); Calcium 8.8 mg/dL (8.6-10.3); Carbon Dioxide 33 mEq/L (23-29); Chloride 98 mEq/L (98-107); Glucose 220 mg/dL (70-105); INR 2.4; Osmolality,Calculated 297 (280-300); Prothrombin Time 27.6 Seconds (9.4-12.1); Sodium 136 mEq/L (136-145); eGFR For African Americans > 60 (> 60); eGFR For Non-African Americans 53 (> 60)
[2019-03-13] MEDS: Doxycycline 100 MG CAPSULE PO SCH (05:27)
[2019-03-13] MEDS: Lactobacillus 1 EACH CAP.SPRINK PO SCH ×2 (08:47→20:27)
[2019-03-13] MEDS: Insulin LISPRO 300 UNITS/3 ML VIAL SQ SCH ×4 (08:47→20:21)
[2019-03-13] MEDS: *HR* Amiodarone 200 MG TABLET PO SCH (08:48)
[2019-03-13] MEDS: Insulin DETEMIR 100 UNIT/ML X5UNITS SQ SCH ×2 (08:53→20:20)
--- NOTE | 2019-03-13 11:44 | Infectious Disease Consult ---
Infectious Disease-Consult - Encounter Date/Time Date of Encounter: 03/13/19 Time of Encounter: 11:39 - Data of Consult Patient: new to practice Reason for consult: "MSSA bacteremia, sepsis with PNA and RUE thrombophlebitis" Consult date: 03/13/19 Requesting Physician: Karthik Hernandez MD Primary Care Provider: Richard Tran DO - [facility] HPI: Mr. Mancera is a 69-year-old male with a past medical history of A. fib, diabetes, hyperlipidemia, hypertension. The patient was admitted to the hospital 03/10/19 for UTI. We are consulted 03/13/19 for further workup and treatment recommendations for MSSA bacteremia. Briefly, the patient is a 69-year-old male with past medical history as stated above. The patient presented to the emergency department with complaints of fever, shortness of breath, and weakness. Upon arrival, he was afebrile, but reported a temperature of 100.5 at home. He was hypoxic, but was otherwise hemodynamically stable. He had a mild leukocytosis and acute kidney injury. Lactic acid and troponin were normal. BNP was elevated at 551. Urinalysis was positive for nitrates and small amounts of leukocyte esterase, but also many epithelial cells and no bacteria. The culture was negative. He was noted to have elevated transaminases with a total bili of 1.9, AST of 157, ALP of 114, and alkaline phosphatase of 155. Her calcitonin was mildly elevated at 0.40. Blood cultures were obtained 2 sets. A chest x-ray showed cardiomegaly with heart failure area and CT of the abdomen and pelvis showed hepatic steatosis with hepatomegaly and bibasilar infiltrates versus atelectasis versus possible pneumonitis. He was started empirically on vancomycin, Zosyn, and Levaquin and was admitted to the hospital for further evaluation. Since admission, the patient's leukocytosis has resolved. He did have a MAXIMUM TEMPERATURE of 102.9 on the day of admission, but has been afebrile since then. He has otherwise been hemodynamically stable. Blood cultures drawn in the emergency department came back +2 out of 2 sets for MSSA. He had a transthoracic echocardiogram showed an EF of 55-60%, but was limited in evaluation of the valves. MRSA nasal screen was negative. Strep pneumococcal legionella urinary antigens were negative. He had a liver ultrasound that showed findings consistent with hepatic steatosis. Right upper extremity Doppler was positive for SVT in the right cephalic vein. Repeat blood cultures drawn 03/12/19 are pending. His acute kidney injury has improved. LFTs have not been rechecked. Currently, he is on oral doxycycline and IV Zosyn. We have been asked to evaluate and make further recommendations. During my exam today, the patient endorses a history as stated above. He states he was hospitalized last week for shortness of breath and told he had CHF and pneumonia. According to the records, he was treated for CHF exacerbation and did not receive any antibiotics. He states that on the day of admission he noticed that his right antecubital IV site was red, swollen, and painful. He reports fevers with chills at home, but denies any rigors. Reports chronic neck pain that is at baseline, but denies any headache. Reports chronic rhinorrhea secondary to allergic rhinitis. Denies earache or sore throat. States his shortness of breath initially improved following the hospital, but worsened again at home. He reports a cough productive of clear/white sputum. Denies any hemoptysis. Denies pain in his chest. Reports some intermittent nausea, but denies any vomiting or diarrhea or abdominal pain. Denies oral thrush or skin rashes. Denies back or flank pain. Denies urinary complaints. The patient lives at home with his . 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 He denies tobacco, alcohol, or illicit drug use. States he has never been a heavy drinker. Denies recent travel outside the [facility]. States he has some dogs at home and does report a scratch to the right upper extremity about a month ago that is well-healed. Denies chronic infectious diseases. - ROS Review of Systems: All systems reviewed and no additional remarkable complaints except as stated. - Results CBC & Chem 7: 03/14/19 01:04 03/14/19 01:04 - Exam Vitals: Temp Pulse Resp BP Pulse Ox 98.0 F 61 18 131/76 96 03/13/19 11:17 03/13/19 11:17 03/13/19 11:17 03/13/19 11:17 03/13/19 11:17 Exam: Head: Atraumatic, normal inspection, normocephalic. Eye: EOMI, PERRLA, no scleral icterus noted. No subconjunctival hemorrhage noted. ENT: Mucous membranes moist. No odontogenic infection noted. Neck: Normal inspection, no meningismus. Respiratory: Clear to auscultation. No rales, respiratory distress, rhonchi, or wheezes noted. Cardiovascular: Regular rate, irregular rhythm, S1 and S2 audible. No murmurs, rubs, or gallops. GI: Soft, obese, normal bowel sounds. Nontender Extremities:No joint swelling, pedal edema, or tenderness noted. Erythema and scabbed lesion noted to the right antecubital fossa had previous IV insertion site. Mild tenderness noted with palpation. No swelling. Back: Normal inspection. No vertebral tenderness noted. Neurological: Alert, oriented 3, no focal deficits. Psychiatric: normal affect, normal mood. Skin: Dry, intact, warm. Normal color. No rashes. No endocarditis stigmata noted. Amiodarone [Cordarone] 200 mg PO DAILY 02/13/18 [History] Atorvastatin [Lipitor] 40 mg PO QAM 02/13/18 [History] Losartan Potassium [Cozaar] 100 mg PO DAILY 02/13/18 [History] Metoprolol [Lopressor] 25 mg PO BID 02/13/18 [History] Sertraline [Zoloft] 150 mg PO DAILY 02/13/18 [History] Warfarin [Coumadin] 3 mg PO SUMOWEFR 02/13/18 [History] Warfarin [Coumadin] 1.5 mg PO TUTHSA 03/01/19 [History] Fluticasone Propionate Nasal [Flonase] 1 spray PO DAILY PRN 03/03/19 [History] Levothyroxine [Synthroid] 100 mcg PO QAM 03/03/19 [History] Montelukast [Singulair] 10 mg PO QPM 03/03/19 [History] Furosemide [Lasix] 20 mg PO BID #60 tablet 03/04/19 [Rx] Insulin NPH Hum/Reg Insulin Hm [Novolin 70-30 100 Unit/ml Vial] 40 unit SQ QPM 03/11/19 [History] Insulin NPH Hum/Reg Insulin Hm [Novolin 70-30 100 Unit/ml Vial] 50 unit SQ QAM 03/11/19 [History] Metformin HCl 500 mg PO QPM 03/11/19 [History] Allergy/AdvReac Type Severity Reaction Status Date / Time cefazolin [From Ancef] Allergy Hives Verified 03/11/19 16:51 rosuvastatin [From Crestor] Allergy Hives Verified 03/11/19 16:51 Sulfa (Sulfonamide Allergy Hives Verified 03/11/19 16:51 Antibiotics) - Assessment and Plan (1) Sepsis Current Visit: Yes Status: Acute The patient had 2 sepsis criteria. Likely secondary to bacteremia and thrombophlebitis of the right upper extremity. Improved. Leukocytosis resolved. He has been afebrile. Blood cultures drawn 03/10/19 are +2 out of 2 sets for MSSA. Repeat blood cultures drawn 03/12/19 are pending 2 sets. Qualifiers: Sepsis type: methicillin susceptible Staphylococcus aureus Qualified Code(s): A41.01 - Sepsis due to Methicillin susceptible Staphylococcus aureus SNOMED Code(s): 13904523 (2) Bacteremia Current Visit: Yes Status: Acute Causative organism: MSSA. Source: Likely right upper extremity thrombophlebitis. Blood cultures drawn 03/10/19 are +2 out of 2 sets for MSSA. Repeat blood cultures drawn 03/12/19 are pending 2 sets. Uncomplicated. No endocarditis stigmata noted on exam. Transthoracic echocardiogram was suboptimal for evaluation of the valves. The patient has one major and one minor modified [place] criteria. Currently on IV Zosyn and oral doxycycline. SNOMED Code(s): 2369767 (3) Superficial thrombophlebitis of right upper extremity Current Visit: Yes Status: Acute Location: Right upper extremity. Likely secondary to recent IV insertion. Venous Doppler study shows a superficial venous thrombosis in the right cephalic vein. Clinically improved. Currently on oral doxycycline and IV Zosyn. SNOMED Code(s): 27149474770843328 (4) Pneumonia Current Visit: Yes Status: Acute Chest x-ray showed findings consistent with cardiomegaly with heart failure. CT abdomen and pelvis showed bibasilar infiltrate or atelectasis versus pneumonitis. The patient presented with dyspnea, but BNP elevated as well. Based on clinical picture, feel that the patient's symptoms are more likely related to CHF exacerbation and not PNA. UATs negative. MRSA screen negative. Currently on Zosyn and doxycycline. Qualifiers: Pneumonia type: due to unspecified organism Laterality: bilateral Lung location: lower lobe of lung Qualified Code(s): J18.1 - Lobar pneumonia, unspecified organism SNOMED Code(s): 901761748 (5) ZAC (acute kidney injury) Current Visit: Yes Status: Acute Likely secondary to sepsis. Improved. Avoid nephrotoxins as able and dose-adjust antibiotics. SNOMED Code(s): 47141922, 31057148 (6) Transaminitis Current Visit: Yes Status: Acute Likely secondary to hepatic steatosis as noted on CT of the abdomen and pelvis and liver ultrasound. Repeat LFTs improved, but have not been checked in the past couple of days. Abdominal exam benign. Consider GI to evaluate. SNOMED Code(s): 761281902, 994074437 (7) CHF (congestive heart failure) Current Visit: No Status: Chronic Qualifiers: Heart failure type: unspecified Heart failure chronicity: unspecified Qualified Code(s): I50.9 - Heart failure, unspecified SNOMED Code(s): 56252943 (8) Type 2 diabetes mellitus Current Visit: Yes Status: Chronic Recommend aggressive glucose monitoring and control to promote wound healing and prevent re-infection. Management per the primary team. Qualifiers: Diabetes mellitus fci insulin use: with predatory animal exterminator use Diabetes mellitus complication status: without complication Qualified Code(s): E11.9 - Type 2 diabetes mellitus without complications; Z79.4 - terminal operations supervisor (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 SNOMED Code(s): 55263670 (9) Morbid obesity with BMI of 50.0-59.9, adult Current Visit: No Status: Chronic SNOMED Code(s): 093085688, 28528879756054 (10) Drug allergy, antibiotic Current Visit: Yes Status: Acute Reports hives when he has taken cefazolin in the past. Tolerating Zosyn without a problem. SNOMED Code(s): 418486173210965 - Recommendations Recommendations: Await repeat blood cultures. Check rheumatoid factor. Continue to trend LFTs. Get ILDA prior to discharge. Discontinue doxycycline and Zosyn. Start nafcillin 2 g IV every 4 hours. Duration of treatment is on the clinical picture. Monitor renal function and dose adjust antibiotics. field services analyst to assist with discharge planning. Avoid insertion long-term IV access until repeat blood cultures are no growth 48 hours. Past Med Surg Social Fam HX - Past Medical History Attestation: Yes The following information was validated with the patient. Source: patient, old records reviewed, nursing notes reviewed Medical history: atrial fibrillation, diabetes, hyperlipidemia, hypertension Additional medical history: Thyroid issues, left thumb amputation Psychiatric history: no psych history - Past Surgical History Surgical History: cholecystectomy Additional surgical history: Evacuation of abd hematoma, left thumb revision, coardiac ablation. - Social History Smoking Status: Never smoker Smokeless Tobacco Status: No Alcohol use: none Drug use: none Occupational status: retired Current living situation: Home, With Family Activity Level: Independent ambulation Recent Out of Country Travel Within the Last 8 Weeks: No Exposure or Possible Exposure to Illness During Travel: No - Family History Mother Adopted: No Family Member Ethnicity: Non- Living Status: Hx Family Cardiac Disorders: Yes Hx Family Respiratory Disorders: Yes Hx Family Cancer: No Hx Family GI Disorders: No Hx Family Endocrine Disorder: No Hx Family Neuromuscular Disorders: No Hx Family Neurologic Disorders: No Hx Family HEENT Disorders: No Hx Family Autoimmune Disorders: No Father Living Status: Still Living Hx Family Cardiac Disorders: Yes Hx Family Respiratory Disorders: No Hx Family Cancer: No Hx Family GI Disorders: Yes Hx Family Endocrine Disorder: No Hx Family Neuromuscular Disorders: No Hx Family Neurologic Disorders: No Hx Family HEENT Disorders: No Hx Family Autoimmune Disorders: No Consult Discharge Plan - Plan Referrals: Richard Tran DO [Primary Care Provider] - - Attending Attestation I have personally performed a face to face evaluation on this patient. I have reviewed and agree with the care plan. History and Exam by me shows: Assessment and plan Sepsis MSSA bacteremia 2 out of 2 sets positive 03/10/2019 source likely right upper extremity thrombophlebitis Superficial thrombophlebitis right upper extremity from previous recent IV insertion site Pneumonia causative organism not clear A ROGER Transaminitis CHF Morbid obesity Diabetes mellitus type 2 Left shoulder/jaw pain Recommendations I saw the patient in the presence of nursing staff. They were aware of the jaw pain in the shoulder pain. I asked her to call the hospitalist just in case is a concern for acute coronary syndrome. The pain was not reproducible on physical exam. Hospitalists is aware of a believe serial EKGs and troponins have been ordered Await repeat blood cultures. Check rheumatoid factor. Continue to trend LFTs. Get ILDA prior to discharge. Discontinue doxycycline and Zosyn. Start nafcillin 2 g IV every 4 hours. Duration of treatment is on the clinical picture. Monitor renal function and dose adjust antibiotics. field services analyst to assist with discharge planning. Avoid insertion long-term IV access until repeat blood cultures are no growth 48 hours.
[2019-03-13 13:28] LABS: Enterococcus by PCR Not Detected (Not Detect); mecA Methicillin-Resist Gene Not Detected (Not Detect)
[2019-03-13 13:30] LABS: Staphylococcus aureus by PCR DETECTED (Not Detect)
[2019-03-13 13:31] LABS: Acinetobacter baumannii by PCR Not Detected (Not Detect); Candida albicans by PCR Not Detected (Not Detect); Candida glabrata by PCR Not Detected (Not Detect); Candida krusei by PCR Not Detected (Not Detect); Candida parapsilosis by PCR Not Detected (Not Detect); Candida tropicalis by PCR Not Detected (Not Detect); Enterobacter cloacae Cmplx PCR Not Detected (Not Detect); Enterobacteriaceae by PCR Not Detected (Not Detect); Escherichia coli by PCR Not Detected (Not Detect); Klebsiella oxytoca by PCR Not Detected (Not Detect); Klebsiella pneumoniae by PCR Not Detected (Not Detect); Proteus by PCR Not Detected (Not Detect); Pseudomonas aeruginosa by PCR Not Detected (Not Detect); Serratia marcescens by PCR Not Detected (Not Detect); Streptococcus agalactiae(B)PCR Not Detected (Not Detect); Streptococcus by PCR Not Detected (Not Detect); Streptococcus pneumoniae PCR Not Detected (Not Detect); Streptococcus pyogenes (A) PCR Not Detected (Not Detect)
--- NOTE | 2019-03-13 14:32 | Internal Med Progress Note ---
Hospitalist Progress Note - Encounter Date of Encounter: 03/13/19 Time of Encounter: 13:00 - Subjective Interval History: Hospital course reviewed. Remains afebrile > 48 hours and reports improvement in his breathing. No N/V. - Exam Vitals: Temp Pulse Resp BP Pulse Ox 98.0 F 61 18 131/76 96 03/13/19 11:17 03/13/19 11:17 03/13/19 11:17 03/13/19 11:17 03/13/19 11:17 Exam: General: Patient is alert, no acute distress, oriented x 3 Respiratory: Breath sounds diminished at the bases with scattered end-expiratory wheezing Cardiovascular: Regular rate and rhythm. s1 and s2 normal No clicks, rubs, gallops, or murmurs. No pedal edema Abdomen: Abdomen is soft, nontender. Bowel sounds are present Musculoskeletal: Spontaneously moving all extremities Skin: warm, dry, intact. Erythema present on right AC fossa with cord like sensation under skin Neuro: Alert oriented x 3 normal cranial nerves, no focal deficits - Assessment and Plan (1) Sepsis Current Visit: Yes Status: Acute Assessment and Plan: presented with fever, leukocytosis attributed to PNA and R UE thrombophlebitis but also noted to have MSSA bacteremia in both sets from 03/10 urine strep/legionella -ve repeat culture taken yesterday also came back +ve for GPC in 1 set TTE without any vegetation, will proceed with ILDA clinically improving with zosyn/doxycycline, will also consult ID given persistent MSSA bacteremia (2) Respiratory failure with hypoxia Current Visit: Yes Status: Acute Assessment and Plan: Due to pneumonia, abx as above Continue O2 supplementation. Wean FiO2 as tolerated. (3) Bacteremia Current Visit: Yes Status: Acute Assessment and Plan: as above for sepsis repeat blood cultures cedrick AM (4) ZAC (acute kidney injury) Current Visit: Yes Status: Acute Assessment and Plan: improving with IVF, will hold IVF today and encourage oral intake lasix on hold (5) Pneumonia Current Visit: Yes Status: Acute Assessment and Plan: abx as above (6) Superficial thrombophlebitis of right upper extremity Current Visit: Yes Status: Acute Assessment and Plan: warm compress (7) Type 2 diabetes mellitus Current Visit: Yes Status: Chronic Assessment and Plan: continue basal-bolus insulin, increase levemir to 20U BID (8) PAF (paroxysmal atrial fibrillation) Current Visit: No Status: Chronic Assessment and Plan: INR therapeutic, continue amiodarone and beta izabela (9) Diastolic CHF Current Visit: Yes Status: Chronic Assessment and Plan: Lasix on hold due to ZAC (10) DVT prophylaxis Current Visit: No Status: Acute Assessment and Plan: therapeutic INR - Time Spent with Patient Total time spent is greater than 50% in coordination of care (as documented) at patient's floor/unit and/or counseling patient: Greater than 35 minutes Plan of Care Discussed with: patient (discussed with ID) Internal Medicine: Result - Labs CBC & Chem 7: 03/12/19 04:09 03/13/19 01:15 Labs: BMP 03/13/19 01:15 Sodium 136 Potassium 4.0 Chloride 98 Carbon Dioxide 33 H BUN 37 H Creatinine 1.33 H Glucose 220 H Calcium 8.8 - ABG Interpretation ABG results: PT/INR, D-dimer PT 27.6 Seconds (9.4-12.1) H 03/13/19 01:15 - Impressions Impressions Echocardiogram Limited Views 03/11/19 08:13 Impressions: Technically sub-optimal due to poor echocardiographic windows. LVEF 55-60%. Mild tricuspid regurgitation. Mild aortic stenosis. The valves are not well visualized to rule out endocarditis. Please consider ILDA if clinically indicated. Left Ventricular Wall Motion: Rest Echo Findings All wall segments showed normal motion. Findings: Study Quality * Technically sub-optimal due to poor echocardiographic windows. ECG Findings * Atrial fibrillation. Left Ventricle * LVEF 55-60%. Mitral Valve * Moderate mitral annular calcification * Trace mitral regurgitation. * Mitral valve not well visualized. Tricuspid Valve * Mild tricuspid regurgitation. * Tricuspid valve not well visualized. Aortic Valve * Aortic valve not well visualized. * Mild aortic stenosis. Pulmonic Valve * Pulmonic valve is not well visualized. Consult Discharge Plan - Plan Referrals: Richard Tran DO [Primary Care Provider] - (1) Sepsis Qualifiers: Sepsis type: methicillin susceptible Staphylococcus aureus Qualified Code(s): A41.01 - Sepsis due to Methicillin susceptible Staphylococcus aureus (2) Respiratory failure with hypoxia Qualifiers: Chronicity: acute Qualified Code(s): J96.01 - Acute respiratory failure with hypoxia (5) Pneumonia Qualifiers: Pneumonia type: due to methicillin-sensitive Staphylococcus aureus (MSSA) Laterality: bilateral Lung location: lower lobe of lung Qualified Code(s): J15.211 - Pneumonia due to Methicillin susceptible Staphylococcus aureus (7) Type 2 diabetes mellitus Qualifiers: Diabetes mellitus halfway insulin use: with halfway use Diabetes mellitus complication status: without complication Qualified Code(s): E11.9 - Type 2 diabetes mellitus without complications; Z79.4 - snf (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 (9) Diastolic CHF Qualifiers: Heart failure chronicity: chronic Qualified Code(s): I50.32 - Chronic diastolic (congestive) heart failure
[2019-03-13] MEDS: Nafcillin 2,000 MG in D5% in Water (Mini-Bag+) 100 ML IVPB SCH (16:33)
[2019-03-13] MEDS ORDERED: *HR* Warfarin 3 MG TABLET PO ONE (18:00)
[2019-03-13] MEDS: Acetaminophen 325 MG TABLET PO PRN (20:19)
[2019-03-13] MEDS ORDERED: Nafcillin 2,000 MG in D5% in Water (Mini-Bag+) 100 ML IVPB SCH (20:36)
[2019-03-14 01:22] LABS: Basophils % 0.3 %; Eosinophils % 0.3 %; Hematocrit 38.4 % (37.5-50.1); Hemoglobin 11.3 g/dL (12.9-16.9); Immature Granulocytes % 1.5 % (0-4); Lymphocytes # 0.9 K/mcL (0.6-4.6); Lymphocytes % 6.9 %; Mean Corpuscular HGB Conc 29.4 g/dL (31.6-35.5); Mean Platelet Volume 10.1 fL (9.4-12.4); Monocytes # 1.3 K/mcL (0.0-1.3); Monocytes % 10.1 %; Platelet Count 219 K/mcL (140-400); Red Blood Count 4.52 M/mcL (4.19-5.50); Red Cell Distribution Width 15.2 % (11.5-14.5); Segmented Neutrophils % 80.9 %; White Blood Count 12.4 K/mcL (4.3-11.1)
[2019-03-14 01:33] LABS: Alanine Aminotransferase 66 Units/L (7-52); Albumin 3.2 g/dL (3.5-5.7); Albumin/Globulin Ratio 0.9 (1.1-2.2); Alkaline Phosphatase 115 Units/L (34-104); Aspartate Amino Transferase 43 Units/L (13-39); BUN/Creatinine Ratio 29 (6-26); Blood Urea Nitrogen 39 mg/dL (8-23); Calcium 8.6 mg/dL (8.6-10.3); Carbon Dioxide 29 mEq/L (23-29); Chloride 100 mEq/L (98-107); Globulin 3.7 g/dL (2.4-3.5); Glucose 268 mg/dL (70-105); Osmolality,Calculated 297 (280-300); Potassium 4.4 mEq/L (3.5-5.1); Sodium 134 mEq/L (136-145); Total Protein 6.9 g/dL (6.4-8.9); eGFR For African Americans > 60 (> 60); eGFR For Non-African Americans 52 (> 60)
[2019-03-14 01:38] LABS: INR 3.4; Prothrombin Time 38.8 Seconds (9.4-12.1)
[2019-03-14] MEDS: Acetaminophen 325 MG TABLET PO PRN ×2 (01:52→20:39)
[2019-03-14] MEDS: Nafcillin 2,000 MG in D5% in Water (Mini-Bag+) 100 ML IVPB SCH ×7 (01:54→20:41)
[2019-03-14] MEDS: Insulin LISPRO 300 UNITS/3 ML VIAL SQ SCH ×4 (07:40→20:40)
[2019-03-14] MEDS: *HR* Amiodarone 200 MG TABLET PO SCH (07:40)
[2019-03-14] MEDS: Lactobacillus 1 EACH CAP.SPRINK PO SCH ×2 (07:41→20:40)
--- NOTE | 2019-03-14 08:55 | Infectious Disease Progress No ---
ID Progress Note Date of Encounter: 03/14/19 Time of Encounter: 08:52 - Subjective Subjective: Patient seen and examined. No acute events noted overnight. Patient continues to complain of some reproducible left-sided chest pain that is worse with cough or deep inspiration or certain movements. States his neck pain is improved. Denies fevers, chills, or rigors. Denies shortness of breath and states his cough persists with clear sputum. Denies any nausea, vomiting, diarrhea, or constipation. Denies abdominal pain or urinary complaints. States he had a bowel movement last night. Denies oral thrush or skin rashes. States his appetite is okay, but is currently nothing by mouth for a procedure later today. - Objective CBC & Chem 7: 03/15/19 07:35 03/15/19 07:35 - Exam Vitals: Temp Pulse Resp BP Pulse Ox 97.9 F 48 21 119/59 98 03/14/19 06:58 03/14/19 06:58 03/14/19 06:58 03/14/19 06:58 03/14/19 06:58 Exam: Head: Atraumatic, normal inspection, normocephalic. Eye: EOMI, PERRLA, no scleral icterus noted. No subconjunctival hemorrhage noted. ENT: Mucous membranes moist. No odontogenic infection noted. Neck: Normal inspection, no meningismus. Respiratory: Clear to auscultation. No rales, respiratory distress, rhonchi, or wheezes noted. Cardiovascular: Regular rate, irregular rhythm, S1 and S2 audible. No murmurs, rubs, or gallops. GI: Soft, obese, normal bowel sounds. Nontender Extremities:No joint swelling, pedal edema, or tenderness noted. Erythema and scabbed lesion noted to the right antecubital fossa had previous IV insertion site. Mild tenderness noted with palpation. No swelling. Venous stasis dermatitis noted to the bilateral lower extremities. Neurological: Alert, oriented 3, no focal deficits. Psychiatric: normal affect, normal mood. Skin: Dry, intact, warm. Normal color. No rashes. No endocarditis stigmata noted. - Assessment and Plan (1) Sepsis Current Visit: Yes Status: Acute The patient had 2 sepsis criteria. Likely secondary to bacteremia and thrombophlebitis of the right upper extremity. Improved. WBC back up a little today. He has been afebrile. Blood cultures drawn 03/10/19 are +2 out of 2 sets for MSSA. Repeat blood cultures drawn 03/12/19 are positive 1/2 sets. Repeat blood cultures drawn 03/14/19 are pending x 2 sets. Qualifiers: Sepsis type: methicillin susceptible Staphylococcus aureus Qualified Code(s): A41.01 - Sepsis due to Methicillin susceptible Staphylococcus aureus SNOMED Code(s): 04613476 (2) Bacteremia Current Visit: Yes Status: Acute Causative organism: MSSA. Source: Likely right upper extremity thrombophlebitis. Blood cultures drawn 03/10/19 are +2 out of 2 sets for MSSA. Repeat blood cultures drawn 03/12/19 are positive 1/2 sets. Repeat blood cultures drawn 03/14/19 are pending x 2 sets. Uncomplicated. No endocarditis stigmata noted on exam. Transthoracic echocardiogram was suboptimal for evaluation of the valves. ILDA scheduled for today. Rheumatoid factor pending. The patient has one major and one minor modified [place] criteria. Currently on IV Nafcillin. SNOMED Code(s): 1819518 (3) Superficial thrombophlebitis of right upper extremity Current Visit: Yes Status: Acute Location: Right upper extremity. Likely secondary to recent IV insertion. Venous Doppler study shows a superficial venous thrombosis in the right cephalic vein. Clinically improved. Currently on IV Nafcillin. SNOMED Code(s): 11286108900550349 (4) Pneumonia Current Visit: Yes Status: Acute Chest x-ray showed findings consistent with cardiomegaly with heart failure. CT abdomen and pelvis showed bibasilar infiltrate or atelectasis versus pn eumonitis. The patient presented with dyspnea, but BNP elevated as well. Based on clinical picture, feel that the patient's symptoms are more likely related to CHF exacerbation and not PNA. UATs negative. MRSA screen negative. CT neck showed RUL consolidation and pulmonary vascular congestion. Will start Levaquin. Qualifiers: Pneumonia type: due to unspecified organism Laterality: bilateral Lung location: lower lobe of lung Qualified Code(s): J18.1 - Lobar pneumonia, unspecified organism SNOMED Code(s): 496209967 (5) ZAC (acute kidney injury) Current Visit: Yes Status: Acute Likely secondary to sepsis. Improved. Avoid nephrotoxins as able and dose-adjust antibiotics. SNOMED Code(s): 43227649, 39126434 (6) Transaminitis Current Visit: Yes Status: Acute Likely secondary to hepatic steatosis as noted on CT of the abdomen and pelvis and liver ultrasound. Repeat LFTs improved. Abdominal exam benign. Consider outpatient GI referral. SNOMED Code(s): 669404122, 448790629 (7) CHF (congestive heart failure) Current Visit: No Status: Chronic Qualifiers: Heart failure type: unspecified Heart failure chronicity: unspecified Qualified Code(s): I50.9 - Heart failure, unspecified SNOMED Code(s): 19734422 (8) Type 2 diabetes mellitus Current Visit: Yes Status: Chronic Recommend aggressive glucose monitoring and control to promote wound healing and prevent re-infection. Management per the primary team. Qualifiers: Diabetes mellitus exterminator helper insulin use: with exterminator helper use Diabetes mellitus complication status: without complication Qualified Code(s): E11.9 - Type 2 diabetes mellitus without complications; Z79.4 - rat exterminator (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 SNOMED Code(s): 95447862 (9) Morbid obesity with BMI of 50.0-59.9, adult Current Visit: No Status: Chronic SNOMED Code(s): 073313603, 46087672848850 (10) Drug allergy, antibiotic Current Visit: Yes Status: Acute Reports hives when he has taken cefazolin in the past. Tolerating Zosyn without a problem. Tolerating nafcillin so far. SNOMED Code(s): 898730423119964 - Recommendations Recommendations: Await repeat blood cultures. Check rheumatoid factor. --> pending. Continue to trend LFTs. Get ILDA prior to discharge. --> scheduled for today. Continue nafcillin 2 g IV every 4 hours. Start Levaquin 750mg IV daily. Duration of treatment depends on the clinical picture. Monitor renal function and dose adjust antibiotics. business services tech to assist with discharge planning. Avoid insertion long-term IV access until repeat blood cultures are no growth 48 hours. Coumadin on hold for now (INR 3.4). Consult Discharge Plan - Plan Referrals: Richard Tran DO [Primary Care Provider] - - Attending Attestation I have personally performed a face to face evaluation on this patient. I have reviewed and agree with the care plan. History and Exam by me shows: Assessment and plan 1.Sepsis 2.MSSA bacteremia 2 out of 2 sets positive 03/10/2019 source likely right upper extremity thrombophlebitis 3.Superficial thrombophlebitis right upper extremity from previous recent IV insertion site 4.Pneumonia causative organism not clear 5.CHF Diabetes mellitus type 2 Recommendations Await repeat blood cultures. Check rheumatoid factor. --> pending. Continue to trend LFTs. Get ILDA prior to discharge. --> scheduled for today. Continue nafcillin 2 g IV every 4 hours. Start Levaquin 750mg IV daily. Duration of treatment depends on the clinical picture. Monitor renal function and dose adjust antibiotics. business services tech to assist with discharge planning. Avoid insertion long-term IV access until repeat blood cultures are no growth 48 hours. Coumadin on hold for now (INR 3.4).
[2019-03-14] MEDS ORDERED: 0.9 % Sodium Chloride 500 ML IVC ONE (11:19)
[2019-03-14] MEDS ORDERED: *HR* Midazolam HCl 5 MG/5 ML VIAL IVP PRN (11:19)
[2019-03-14] MEDS ORDERED: Lidocaine Viscous Oral Soln 15 ML SOLUTION MM PRN (11:19)
[2019-03-14] MEDS ORDERED: *HR* FentaNYL (PF) 100 MCG/2 ML VIAL IVP PRN (11:19)
--- NOTE | 2019-03-14 12:53 | Internal Med Progress Note ---
Hospitalist Progress Note - Encounter Date of Encounter: 03/14/19 Time of Encounter: 10:15 - Subjective Interval History: No acute events overnight. Pt did complain of left neck pain radiating down to left arm for which he had CT C-spine; no evidence of discitis or epidural abscess. Patient states improvement in his breathing as well as generalized wea kness. Remains afebrile since presentation. - Exam Vitals: Temp Pulse Resp BP Pulse Ox 97.8 F 53 20 159/74 95 03/14/19 11:44 03/14/19 11:44 03/14/19 11:44 03/14/19 11:44 03/14/19 11:44 Exam: General: Patient is alert, no acute distress, oriented x 3 Respiratory: Breath sounds diminished at the bases with scattered end-expiratory wheezing Cardiovascular: Regular rate and rhythm. s1 and s2 normal No clicks, rubs, gallops, or murmurs. No pedal edema Abdomen: Abdomen is soft, nontender. Bowel sounds are present Musculoskeletal: Spontaneously moving all extremities Skin: warm, dry, intact. Erythema present on right AC fossa with cord like sensation under skin Neuro: Alert oriented x 3 normal cranial nerves, no focal deficits - Assessment and Plan (1) Sepsis Current Visit: Yes Status: Acute Assessment and Plan: presented with fever, leukocytosis attributed to PNA and R UE thrombophlebitis but also noted to have MSSA bacteremia in both sets from 03/10 CT C-spine was done yesterday in view of L UE radicular pain; -ve for discitis or epidural abscess repeat blood culture 03/12 +ve for S. aureus in 1 out of 2 sets urine strep/legionella -ve TTE without any vegetation, proceed with ILDA ID input appreciated, abx switched to nafcillin (2) Bacteremia Current Visit: Yes Status: Acute Assessment and Plan: as above for sepsis repeat blood cultures taken this morning, will follow (3) Respiratory failure with hypoxia Current Visit: Yes Status: Acute Assessment and Plan: Due to pneumonia, abx as above Continue O2 supplementation. Wean FiO2 as tolerated. plan to resume lasix tomorrow if Cr remains stable (4) ZAC (acute kidney injury) Current Visit: Yes Status: Acute Assessment and Plan: continue to monitor off IVF, may resume lasix tomorrow if Cr remains stable (5) Pneumonia Current Visit: Yes Status: Acute Assessment and Plan: abx as above (6) Superficial thrombophlebitis of right upper extremity Current Visit: Yes Status: Acute Assessment and Plan: warm compress (7) Type 2 diabetes mellitus Current Visit: Yes Status: Chronic Assessment and Plan: continue basal-bolus insulin, will further increase levemir to 25U BID (8) PAF (paroxysmal atrial fibrillation) Current Visit: No Status: Chronic Assessment and Plan: INR supratherapeutic, pharmacy to dose holding amiodarone and beta izabela today in view of bradycardia (9) Diastolic CHF Current Visit: Yes Status: Chronic Assessment and Plan: Lasix on hold for now (10) Morbid obesity with BMI of 50.0-59.9, adult Current Visit: No Status: Chronic Assessment and Plan: Lifestyle modifications emphasized (11) DVT prophylaxis Current Visit: No Status: Acute Assessment and Plan: supratherapeutic INR - Time Spent with Patient Total time spent is greater than 50% in coordination of care (as documented) at patient's floor/unit and/or counseling patient: 25 - 35 minutes Plan of Care Discussed with: patient Internal Medicine: Result - Labs CBC & Chem 7: 03/14/19 01:04 03/14/19 01:04 Labs: Short CBC 03/14/19 Range/Units 01:04 WBC 12.4 H (4.3-11.1) K/mcL Hgb 11.3 L (12.9-16.9) g/dL Hct 38.4 (37.5-50.1) % Plt Count 219 (140-400) K/mcL Neutrophils # 10.0 H (1.6-8.9) K/mcL BMP 03/14/19 01:04 Sodium 134 L Potassium 4.4 Chloride 100 Carbon Dioxide 29 BUN 39 H Creatinine 1.36 H Glucose 268 H Calcium 8.6 Liver Function 03/14/19 Range/Units 01:04 Total Bilirubin 1.0 (0.3-1.0) mg/dL AST 43 H (13-39) Units/L ALT 66 H (7-52) Units/L Alkaline Phosphatase 115 H (34-104) Units/L Albumin 3.2 L (3.5-5.7) g/dL - ABG Interpretation ABG results: PT/INR, D-dimer PT 38.8 Seconds (9.4-12.1) H 07/18/19 01:04 - Impressions Impressions Cervical Spine CT 03/13/19 15:03 IMPRESSION: Evaluation is somewhat limited due to motion in body habitus. Patient has degenerative and degenerative disc disease with lower cervical neural foraminal narrowing. No acute fracture. A consolidative process is suggested in the right upper lobe of the lung. Pulmonary vasculature appears congested. D/ / 03/13/2019 19:05:57 Kaelyn Estrada MD / henry Interpreting Provider: Kaelyn Estrada MD Consult Discharge Plan - Plan Referrals: Richard Tran DO [Primary Care Provider] - (1) Sepsis Qualifiers: Sepsis type: methicillin susceptible Staphylococcus aureus Qualified Code(s): A41.01 - Sepsis due to Methicillin susceptible Staphylococcus aureus (3) Respiratory failure with hypoxia Qualifiers: Chronicity: acute Qualified Code(s): J96.01 - Acute respiratory failure with hypoxia (5) Pneumonia Qualifiers: Pneumonia type: due to methicillin-sensitive Staphylococcus aureus (MSSA) Laterality: bilateral Lung location: lower lobe of lung Qualified Code(s): J15 .211 - Pneumonia due to Methicillin susceptible Staphylococcus aureus (7) Type 2 diabetes mellitus Qualifiers: Diabetes mellitus salvage determiner insulin use: with chcf use Diabetes mellitus complication status: without complication Qualified Code(s): E11.9 - Type 2 diabetes mellitus without complications; Z79.4 - [facility] (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 (9) Diastolic CHF Qualifiers: Heart failure chronicity: chronic Qualified Code(s): I50.32 - Chronic diastolic (congestive) heart failure
[2019-03-14] MEDS: Insulin DETEMIR 100 UNIT/ML X5UNITS SQ SCH ×2 (13:15→20:39)
--- NOTE | 2019-03-14 14:47 | Electrocardiograph Report ---
[address] [address] Test Date: 2019-03-14 Pat Name: Dre Cruz Department: 112 Room: [facility] Gender: M Laboratory Chief: [facility] : 1950 Requested By: Dre Taylor Order Number: [id number] Reading MD: Joey Perkins Measurements Intervals [place] Rate: 49 P: [place]: 0 QRS: 263 QRSD: 178 T: -23 QT: 524 QTc: 494 Interpretive Statements BASELINE ARTIFACT POSSIBLE ATRIAL FIBRILLATION MARKED RIGHT AXIS DEVIATION RBBB RECOMMEND REPEAT ECG Electronically Signed On 03-14-2019 14:45:16 EDT by oJey Perkins
[2019-03-14] MEDS: levoFLOXacin 750 MG/150 ML 750 MG/150 ML BAG IVPB SCH (14:54)
[2019-03-15] MEDS: Nafcillin 2,000 MG in D5% in Water (Mini-Bag+) 100 ML IVPB SCH ×6 (00:05→22:15)
[2019-03-15 07:25] LABS: INR 10.5; Prothrombin Time 119.5 Seconds (9.4-12.1)
[2019-03-15] MEDS: *HR* Amiodarone 200 MG TABLET PO SCH (07:44)
[2019-03-15 07:48] LABS: Hematocrit 38.6 % (37.5-50.1); Hemoglobin 11.4 g/dL (12.9-16.9); Mean Corpuscular HGB Conc 29.5 g/dL (31.6-35.5); Mean Corpuscular Hemoglobin 24.6 pg (28.0-33.3); Mean Corpuscular Volume 83.4 fL (83.0-100.0); Mean Platelet Volume 9.6 fL (9.4-12.4); Platelet Count 278 K/mcL (140-400); Red Blood Count 4.63 M/mcL (4.19-5.50); Red Cell Distribution Width 15.6 % (11.5-14.5); White Blood Count 11.1 K/mcL (4.3-11.1)
[2019-03-15] MEDS: Lactobacillus 1 EACH CAP.SPRINK PO SCH ×2 (07:50→22:14)
[2019-03-15] MEDS: Insulin DETEMIR 100 UNIT/ML X5UNITS SQ SCH ×2 (07:57→22:14)
[2019-03-15] MEDS: Insulin LISPRO 300 UNITS/3 ML VIAL SQ SCH ×4 (07:57→22:15)
[2019-03-15 08:09] LABS: Albumin/Globulin Ratio 0.8 (1.1-2.2); Bilirubin,Direct 0.6 mg/dL (0.0-0.2); Bilirubin,Indirect 0.4 mg/dL (0.0-1.2); Calcium 8.9 mg/dL (8.6-10.3); Globulin 3.9 g/dL (2.4-3.5); Total Protein 6.9 g/dL (6.4-8.9)
[2019-03-15] MEDS: levoFLOXacin 750 MG/150 ML 750 MG/150 ML BAG IVPB SCH (08:22)
--- NOTE | 2019-03-15 08:50 | Infectious Disease Progress No ---
ID Progress Note Date of Encounter: 03/15/19 Time of Encounter: 08:47 - Subjective Subjective: Patient seen and examined. No acute events noted overnight. Patient states he does not feel very good today. He is concerned that his INR is 10. Denies chest or neck pain this morning. States that shortness of breath and cough are Improved. Denies fevers, chills, or rigors. Denies any nausea, vomiting, diarrhea, or constipation. Denies abdominal pain or urinary complaints. States he had a bowel movement last night. Denies oral thrush or skin rashes. States his appetite is not very good. - Objective CBC & Chem 7: 03/15/19 07:35 03/15/19 07:35 - Exam Vitals: Temp Pulse Resp BP Pulse Ox 97.8 F 46 20 135/45 93 03/15/19 07:38 03/15/19 07:38 03/15/19 07:38 03/15/19 07:38 03/15/19 07:38 Exam: Head: Atraumatic, normal inspection, normocephalic. Eye: EOMI, PERRLA, no scleral icterus noted. No subconjunctival hemorrhage noted. ENT: Mucous membranes moist. No odontogenic infection noted. Neck: Normal inspection, no meningismus. Respiratory: Clear to auscultation. No rales, respiratory distress, rhonchi, or wheezes noted. Cardiovascular: Regular rate, irregular rhythm, S1 and S2 audible. No murmurs, rubs, or gallops. GI: Soft, obese, normal bowel sounds. Nontender Extremities:No joint swelling or tenderness noted. 1+ edema noted to bilateral lower extremities. Erythema and scabbed lesion noted to the right antecubital fossa had previous IV insertion site. No tenderness noted with palpation. No swelling. Venous stasis dermatitis noted to the bilateral lower extremities. Neurological: Alert, oriented 3, no focal deficits. Psychiatric: normal affect, normal mood. Skin: Dry, intact, warm. Normal color. No rashes. No endocarditis stigmata noted. - Assessment and Plan (1) Sepsis Current Visit: Yes Status: Acute The patient had 2 sepsis criteria. Likely secondary to bacteremia and thrombophlebitis of the right upper extremity. Improved. WBC normal. He has been afebrile. Blood cultures drawn 03/10/19 are +2 out of 2 sets for MSSA. Repeat blood cultures drawn 03/12/19 are positive 2/2 sets. Repeat blood cultures drawn 03/14/19 are no growth to date x 2 sets. Qualifiers: Sepsis type: methicillin susceptible Staphylococcus aureus Qualified Code(s): A41.01 - Sepsis due to Methicillin susceptible Staphylococcus aureus SNOMED Code(s): 39088772 (2) Bacteremia Current Visit: Yes Status: Acute Causative organism: MSSA. Source: Likely right upper extremity thrombophlebitis. Blood cultures drawn 03/10/19 are +2 out of 2 sets for MSSA. Repeat blood cultures drawn 03/12/19 are positive 2/2 sets. Repeat blood cultures drawn 03/14/19 are no growth to date x 2 sets. Uncomplicated. No endocarditis stigmata noted on exam. Transthoracic echocardiogram was suboptimal for evaluation of the valves. ILDA negative for endocarditis. Rheumatoid factor elevated. The patient has one major and 2 minor modified [place] criteria. Currently on IV Nafcillin. SNOMED Code(s): 2080760 (3) Superficial thrombophlebitis of right upper extremity Current Visit: Yes Status: Acute Location: Right upper extremity. Likely secondary to recent IV insertion. Venous Doppler study shows a superficial venous thrombosis in the right cephalic vein. Clinically improved. Currently on IV Nafcillin. SNOMED Code(s): 12713494632308674 (4) Pneumonia Current Visit: Yes Status: Acute Chest x-ray showed findings consistent with cardiomegaly with heart failure. CT abdomen and pelvis showed bibasilar infiltrate or atelectasis versus pneumonitis. The patient presented with dyspnea, but BNP elevated as well. Based on clinical picture, feel that the patient's symptoms are more likely related to CHF exacerbation and not PNA. UATs negative. MRSA screen negative. CT neck showed RUL consolidation and pulmonary vascular congestion. Currently on Levaquin. Qualifiers: Pneumonia type: due to unspecified organism Laterality: bilateral Lung location: lower lobe of lung Qualified Code(s): J18.1 - Lobar pneumonia, unspecified organism SNOMED Code(s): 467128913 (5) ZAC (acute kidney injury) Current Visit: Yes Status: Acute Likely secondary to sepsis. Improved initially, but worse today. Avoid nephrotoxins as able and dose-adjust antibiotics. SNOMED Code(s): 05193725, 86818270 (6) Transaminitis Current Visit: Yes Status: Acute Likely secondary to hepatic steatosis as noted on CT of the abdomen and pelvis a nd liver ultrasound. Repeat LFTs improved. Resolved. Abdominal exam benign. Consider outpatient GI referral. SNOMED Code(s): 211024581, 700050926 (7) CHF (congestive heart failure) Current Visit: No Status: Chronic Qualifiers: Heart failure type: unspecified Heart failure chronicity: unspecified Qualified Code(s): I50.9 - Heart failure, unspecified SNOMED Code(s): 03981968 (8) Type 2 diabetes mellitus Current Visit: Yes Status: Chronic Recommend aggressive glucose monitoring and control to promote wound healing and prevent re-infection. Management per the primary team. Qualifiers: Diabetes mellitus local intermodal truck driver insulin use: with local intermodal truck driver use Diabetes mellitus complication status: without complication Qualified Code(s): E11.9 - Type 2 diabetes mellitus without complications; Z79.4 - snf (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 SNOMED Code(s): 31963130 (9) Morbid obesity with BMI of 50.0-59.9, adult Current Visit: No Status: Chronic SNOMED Code(s): 720640244, 96798855364256 (10) Drug allergy, antibiotic Current Visit: Yes Status: Acute Reports hives when he has taken cefazolin in the past. Tolerating Zosyn without a problem. Tolerating Nafcillin so far. SNOMED Code(s): 754626940414917 - Recommendations Recommendations: Await repeat blood culturesm to finalize. Continue nafcillin 2 g IV every 4 hours. Continue Levaquin 750mg IV daily. (day 2) Duration of treatment depends on the clinical picture. Monitor renal function and dose adjust antibiotics. vice president consulting services to assist with discharge planning. Avoid insertion long-term IV access until repeat blood cultures are no growth 48 hours. Coumadin on hold for now (INR 10). Consult Discharge Plan - Plan Referrals: Richard Tran DO [Primary Care Provider] -
--- NOTE | 2019-03-15 11:21 | Internal Med Progress Note ---
Hospitalist Progress Note - Encounter Date of Encounter: 03/15/19 Time of Encounter: 08:00 - Subjective Interval History: No acute events overnight. Underwent ILDA uneventfully. Patient denies any abdominal pain, dysuria, hematuria, dribbling, incomplete voiding, or urinary frequency. - Exam Vitals: Temp Pulse Resp BP Pulse Ox 97.8 F 46 20 135/45 93 03/15/19 07:38 03/15/19 07:38 03/15/19 07:38 03/15/19 07:38 03/15/19 07:38 Exam: General: Patient is alert, no acute distress, oriented x 3 Respiratory: Breath sounds diminished at the bases with scattered end-expiratory wheezing Cardiovascular: Regular rate and rhythm. s1 and s2 normal No clicks, rubs, ga llops, or murmurs. No pedal edema Abdomen: Abdomen is soft, nontender. Bowel sounds are present Musculoskeletal: Spontaneously moving all extremities Skin: warm, dry, intact. Erythema present on right AC fossa but improving Neuro: Alert oriented x 3 normal cranial nerves, no focal deficits - Assessment and Plan (1) Sepsis Current Visit: Yes Status: Acute Assessment and Plan: presented with fever, leukocytosis attributed to PNA and R UE thrombophlebitis but also noted to have MSSA glendy teremia in both sets from 03/10 repeat culture 03/12 now growing GPC in both sets CT C-spine was done in view of L UE radicular pain; -ve for discitis or epidural abscess TTE and ILDA without any vegetation urine strep/legionella -ve ID input appreciated, abx switched to nafcillin and levaquin added. WBC normal today unsure of the source of persistent bacteremia, will discuss with ID later for further investigation. a/w for 3rd blood cultures done on 03/14 (2) Bacteremia Current Visit: Yes Status: Acute Assessment and Plan: as above for sepsis 3rd set of blood cultures taken 03/14, follow (3) Respiratory failure with hypoxia Current Visit: Yes Status: Acute Assessment and Plan: Due to pneumonia, abx as above Continue O2 supplementation. Wean FiO2 as tolerated. hold lasix in view of worsening Cr (4) ZAC (acute kidney injury) Current Visit: Yes Status: Acute Assessment and Plan: Cr worsened today ?abx-related check CPK, urine eos/Na/Cr retroperitoneal US will consult nephrology (5) Pneumonia Current Visit: Yes Status: Acute Assessment and Plan: abx as above (6) Superficial thrombophlebitis of right upper extremity Current Visit: Yes Status: Acute Assessment and Plan: warm compress (7) Type 2 diabetes mellitus Current Visit: Yes Status: Chronic Assessment and Plan: continue basal-bolus insulin, better controlled on increased dose of levemir (8) PAF (paroxysmal atrial fibrillation) Current Visit: No Status: Chronic Assessment and Plan: INR supratherapeutic at 10.5 today no evidence of bleeding, Hb stable at 11.4 1 dose of IV Vit K 5mg today holding amiodarone and beta izabela in view of bradycardia (9) Diastolic CHF Current Visit: Yes Status: Chronic Assessment and Plan: Lasix on hold as above (10) Morbid obesity with BMI of 50.0-59.9, adult Current Visit: No Status: Chronic Assessment and Plan: Lifestyle modifications emphasized (11) DVT prophylaxis Current Visit: No Status: Acute Assessment and Plan: supratherapeutic INR - Time Spent with Patient Total time spent is greater than 50% in coordination of care (as documented) at patient's floor/unit and/or counseling patient: Greater than 35 minutes Plan of Care Discussed with: patient (discussed with Nephrology) Internal Medicine: Result - Labs CBC & Chem 7: 03/15/19 07:35 03/15/19 07:35 Labs: Short CBC 03/15/19 Range/Units 07:35 WBC 11.1 (4.3-11.1) K/mcL Hgb 11.4 L (12.9-16.9) g/dL Hct 38.6 (37.5-50.1) % Plt Count 278 (140-400) K/mcL BMP 03/15/19 07:35 Sodium 142 Potassium 4.0 Chloride 96 L Carbon Dioxide 32 H BUN 48 H Creatinine 1.96 H Glucose 130 H Calcium 8.9 Liver Function 03/15/19 Range/Units 07:35 Total Bilirubin 1.0 (0.3-1.0) mg/dL Direct Bilirubin 0.6 H (0.0-0.2) mg/dL AST 33 (13-39) Units/L ALT 51 (7-52) Units/L Alkaline Phosphatase 98 (34-104) Units/L Albumin 3.0 L (3.5-5.7) g/dL - ABG Interpretation ABG results: PT/INR, D-dimer PT 119.5 Seconds (9.4-12.1) H* D 03/15/19 06:48 Consult Discharge Plan - Plan Referrals: Richard Tran DO [Primary Care Provider] - (1) Sepsis Qualifiers: Sepsis type: methicillin susceptible Staphylococcus aureus Qualified Code(s): A41.01 - Sepsis due to Methicillin susceptible Staphylococcus aureus (3) Respiratory failure with hypoxia Qualifiers: Chronicity: acute Qualified Code(s): J96.01 - Acute respiratory failure with hypoxia (5) Pneumonia Qualifiers: Pneumonia type: due to unspecified organism Laterality: bilateral Lung location: lower lobe of lung Qualified Code(s): J18.1 - Lobar pneumonia, unspe cified organism (7) Type 2 diabetes mellitus 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
--- NOTE | 2019-03-15 14:33 | Nephrology Consult Note ---
Date of Encounter: 03/15/19 Time of Encounter: 12:00 Assessment and Plan (1) ZAC (acute kidney injury) Current Visit: Yes Status: Acute Likely secondary to poor oral intake and continued use of Lasix as well as sepsis Differential could include warfarin associated nephropathy Patient's creatinine has increased to 1.96 from 1.36 yesterday, BUN of 48 inc reased from 39 GFR decreased at 34 from 52. Patient's baseline GFR greater than 60. Following renally protective strategies as well as renally dosing medication as required avoiding nephrotoxic substances Gentle hydration if possible with his CHF would be advisable Normal saline 50 mils per hour for 1 bag Continue to monitor renal function Urinary sodium, eosinophils, creatinine ordered Renal ultrasound ordered Urinalysis ordered (2) Sepsis Current Visit: Yes Status: Acute As per primary team Qualifiers: Sepsis type: methicillin susceptible Staphylococcus aureus Qualified Code(s ): A41.01 - Sepsis due to Methicillin susceptible Staphylococcus aureus (3) Bacteremia Current Visit: Yes Status: Acute As per primary team (4) CHF (congestive heart failure) Current Visit: No Status: Chronic As per primary team, hold Lasix for now Qualifiers: Heart failure type: unspecified Heart failure chronicity: unspecified Qualified Code(s): I50.9 - Heart failure, unspecified (5) Type 2 diabetes mellitus Current Visit: Yes Status: Chronic Possibly source of patient's renal hypertrophy Management as per primary Qualifiers: Diabetes mellitus fpc insulin use: with ad terminal makeup operator use Diabetes mellitus complication status: without complication Qualified Code(s): E11.9 - Type 2 diabetes mellitus without complications; Z79.4 - senior care (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 History of Present Illness - Reason for Consult Consult date: 03/15/19 Acute Kidney Injury Requesting physician: Karthik Hernandez - Chief Complaint Shortness of breath - History of Present Illness Mr. Cruz is a 69 year old male who was recently discharged for congestive heart failure with lasix 20mg BID. Patient has a history of Afib post ablation on coumadin, Type 2 diabetes mellitus, CHF. Patient stated that he was feeling well after being discharged until about 33 days before coming to the ED. He stated he then started to get short of breath and started coughing. He was not eating or drinking much but continued to take his lasix. He denied any NSAID use, is currently on Losartan. Patient has no history of renal disease and GFR prior to this admission was >60. Pt denies any family history of renal disase Patient denies any urinary hesitancy, urgency, but does state that his stream ahs been weaker. He Denies any abdominal pain or new onset back pain. Patient is on Losartan, coumadin, lasix, and metformin Input yesterday urine output not monitored Input today 780 urine output 410 today Labs today include white blood cell count of 11.1, hemoglobin 11.4, hematocrit 38.6, platelet count of 278 PT on 119.5 INR of 10.5 these have drastically increased since yesterday Sodium 142, potassium 4.0, chloride of 96, BUN of 48 increased from 39 yesterday, creatinine 1.96 increased from 1.36 yesterday, GFR 34 decreased from 50 to yesterday patient does have a positive rheumatoid factor at 17 Awaiting UA for today as well as urine sodium, urine eosinophils, urine creatinine. Retroperitoneal ultrasound showed the right kidney measuring 11.7 cm swells the left kidney measuring 13.8 cm with normal cortical echogenicity bilaterally and no evidence of hydronephrosis or intrarenal stones Patient was seen and examined at bedside today where he seemed in moderate distress. He stated that he still has cough and that he is not feeling very well. He denies any abdominal pain today as well as any urinary symptoms besides a weakening and streaming within the last month. He denies any dysuria, frequency, urgency. He does state that he has been feeling very weak. He states that he was not eating well the last 2-3 days before coming to the hospital acute continue to take his medications daily. Past Med Surg Social Fam HX - Past Medical History Medical history: atrial fibrillation, CHF, diabetes, hyperlipidemia, hypertension Additional medical history: Thyroid issues, left thumb amputation Psychiatric history: no psych history - Past Surgical History Surgical History: cholecystectomy Additional surgical history: Evacuation of abd hematoma, left thumb revision, coardiac ablation. - Social History Smoking Status: Never smoker Smokeless Tobacco Status: No Alcohol use: none Drug use: none - Family History Mother Adopted: No Family Member Ethnicity: Non- Living Status: Hx Family Cardiac Disorders: Yes Hx Family Respiratory Disorders: Yes Hx Family Cancer: No Hx Family GI Disorders: No Hx Family Endocrine Disorder: No Hx Family Neuromuscular Disorders: No Hx Family Neurologic Disorders: No Hx Family HEENT Disorders: No Hx Family Autoimmune Disorders: No Father Living Status: Still Living Hx Family Cardiac Disorders: Yes Hx Family Respiratory Disorders: No Hx Family Cancer: No Hx Family GI Disorders: Yes Hx Family Endocrine Disorder: No Hx Family Neuromuscular Disorders: No Hx Family Neurologic Disorders: No Hx Family HEENT Disorders: No Hx Family Autoimmune Disorders: No Medications and Allergies Amiodarone [Cordarone] 200 mg PO DAILY 02/13/18 [History] Atorvastatin [Lipitor] 40 mg PO QAM 02/13/18 [History] Losartan Potassium [Cozaar] 100 mg PO DAILY 02/13/18 [History] Metoprolol [Lopressor] 25 mg PO BID 02/13/18 [History] Sertraline [Zoloft] 150 mg PO DAILY 02/13/18 [History] Warfarin [Coumadin] 3 mg PO SUMOWEFR 02/13/18 [History] Warfarin [Coumadin] 1.5 mg PO TUTHSA 03/01/19 [History] Fluticasone Propionate Nasal [Flonase] 1 spray PO DAILY PRN 03/03/19 [History] Levothyroxine [Synthroid] 100 mcg PO QAM 03/03/19 [History] Montelukast [Singulair] 10 mg PO QPM 03/03/19 [History] Furosemide [Lasix] 20 mg PO BID #60 tablet 03/04/19 [Rx] Insulin NPH Hum/Reg Insulin Hm [Novolin 70-30 100 Unit/ml Vial] 40 unit SQ QPM 03/11/19 [History] Insulin NPH Hum/Reg Insulin Hm [Novolin 70-30 100 Unit/ml Vial] 50 unit SQ QAM 03/11/19 [History] Metformin HCl 500 mg PO QPM 03/11/19 [History] Allergy/AdvReac Type Severity Reaction Status Date / Time cefazolin [From Ancef] Allergy Hives Verified 03/11/19 16:51 rosuvastatin [From Crestor] Allergy Hives Verified 03/11/19 16:51 Sulfa (Sulfonamide Allergy Hives Verified 03/11/19 16:51 Antibiotics) Review of Systems Constitutional: fatigue Cardiovascular: edema (not increasing but has edema at baseline), no chest pain Respiratory: dyspnea, wheezing Gastrointestinal: constipation, no nausea, no vomiting Genitourinary Male: no urinary frequency, no urinary hesitancy, no urinary urgency Exam - Vital Signs Vital signs: Initial Vital Signs Temp Pulse Resp BP Pulse Ox 99.9 F H 50 16 141/58 83 03/10/19 16:04 03/10/19 16:04 03/10/19 16:04 03/10/19 16:04 03/10/19 16:04 Vital Signs - Last 8 Hours Temp Pulse Resp BP Pulse Ox 03/15/19 12:18 97.9 F 53 22 130/74 96 03/15/19 07:38 97.8 F 46 20 135/45 93 Intake and Output 03/14/19 03/15/19 03/15/19 23:59 07:59 15:59 Intake Total 300 / 1138 440 / 780 340 / 780 Output Total 200 / 410 210 / 410 Balance 300 / 1138 240 / 370 130 / 370 Intake: IV Fluids 300 / 838 200 / 300 100 / 300 Nafcillin 2,000 MG In Dextrose 200 / 600 200 / 300 100 / 300 5% (Minibag+) 100 ML 100 ML @ 200 mls/hr IVPB Q4HR [facility] Rx#: [id number] Levaquin Premix 750mg/150 mL 100 / 100 750 mg In 150 ml @ 100 mls/hr IVPB DAILY [facility] Rx#:[id number] Oral 240 / 480 240 / 480 Output: Urine 200 / 410 210 / 410 Other: Meal Breakfast Lunch Percent of Meal Consumed 50% 40% Stool Size Large Small Stool Consistency liquid Stool Color Brown # Voids 1 # Bowel Movements 1 1 Blood Glucose* 203 183 176 - General Appearance General appearance: well-developed, well-nourished, moderate distress EENT: mucous membranes moist Neck: no JVD, supple Respiratory: wheezing Cardiology: no murmurs, no rub, no gallops, edema (2+ mid calf bilaterally) Gastrointestinal: no tenderness, no guarding Integumentary: warm and dry Results - Lab Results 03/15/19 07:35 03/15/19 07:35 Most recent lab results 03/15/19 07:35 Calcium 8.9 Consult Discharge Plan - Plan Referrals: Richard Tran DO [Primary Care Provider] -
[2019-03-15] MEDS ORDERED: 0.9 % Sodium Chloride 1,000 ML IVC SCH (14:45)
[2019-03-16] MEDS: Nafcillin 2,000 MG in D5% in Water (Mini-Bag+) 100 ML IVPB SCH ×6 (00:40→21:12)
[2019-03-16 05:39] LABS: Basophils # 0.1 K/mcL (0.0-0.2); Basophils % 0.5 %; Eosinophils # 0.2 K/mcL (0.0-0.6); Eosinophils % 1.4 %; Hemoglobin 11.4 g/dL (12.9-16.9); Immature Granulocytes % 3.8 % (0-4); Lymphocytes % 6.6 %; Mean Corpuscular Hemoglobin 25.4 pg (28.0-33.3); Mean Corpuscular Volume 84.6 fL (83.0-100.0); Mean Platelet Volume 9.7 fL (9.4-12.4); Monocytes # 1.1 K/mcL (0.0-1.3); Monocytes % 7.5 %; Neutrophils # 11.5 K/mcL (1.6-8.9); Platelet Count 323 K/mcL (140-400); Red Blood Count 4.49 M/mcL (4.19-5.50); Red Cell Distribution Width 15.8 % (11.5-14.5); Segmented Neutrophils % 80.2 %; White Blood Count 14.4 K/mcL (4.3-11.1)
[2019-03-16 05:53] LABS: INR 2.1; Prothrombin Time 23.9 Seconds (9.4-12.1)
[2019-03-16 05:58] LABS: Calcium 8.7 mg/dL (8.6-10.3); Potassium 3.9 mEq/L (3.5-5.1)
[2019-03-16] MEDS: Lactobacillus 1 EACH CAP.SPRINK PO SCH ×2 (08:49→21:12)
[2019-03-16] MEDS: *HR* Amiodarone 200 MG TABLET PO SCH (08:49)
[2019-03-16] MEDS: Insulin DETEMIR 100 UNIT/ML X5UNITS SQ SCH ×2 (08:53→21:13)
[2019-03-16] MEDS: Insulin LISPRO 300 UNITS/3 ML VIAL SQ SCH ×4 (09:06→21:12)
[2019-03-16 09:30] LABS: Bilirubin,Urine Negative (Negative); Blood,Urine Moderate (Negative); Clarity,Urine Cloudy (Clear); Color,Urine Yellow (Yellow); Glucose,Urine (UA) Normal (Normal); Ketones,Urine Negative (Negative); Leukocyte Esterase,Urine Negative (Negative); Nitrite,Urine Negative (Negative); Protein,Urine 30 mg/dL (Neg-Trace); Specific Gravity,Urine 1.016 (1.010-1.025); Urobilinogen,Urine Normal (Normal)
[2019-03-16 09:32] LABS: Bacteria,Urine None Seen per hpf (None-Few); Hyaline Casts,Urine Moderate per lpf (None-Few); RBC,Urine 0-3 per hpf (0-3); Squamous Epithelial Cell,Urine Many per lpf (None-Few); WBC,Urine 15-30 per hpf (0-3)
[2019-03-16 09:39] LABS: Sodium, Urine 31.3 mEq/L
[2019-03-16] MEDS: levoFLOXacin 750 MG/150 ML 750 MG/150 ML BAG IVPB SCH (09:44)
--- NOTE | 2019-03-16 10:32 | Nephrology Progress Note ---
Date of Encounter: 03/16/19 Time of Encounter: 08:40 - Assessment and Plan (1) ZAC (acute kidney injury) Current Visit: Yes Status: Acute Nonoliguric acute kidney injury, that has fluctuated during this admission. I see that his serum creatinine is typically normal at baseline, but was elevated when he presented with superficial thrombophlebitis. Then it started to improve, and yesterday many of his laboratory parameters have worsened including the ZAC which was when nephrology was consulted. Pending urine studies, but at this point I suspect ATN at this point. I am optimistic as the rate of worsening is starting to slow down, which suggests t hat he may plateau soon in terms of the ZAC. He does not have indications for starting renal replacement therapy today. Due to his edema, and history of CHF, I will stop the IV fluids which was only given at a gentle rate. His renal workup thus far has been unremarkable without any hydronephrosis or cortical echogenicity noted on retroperitoneal ultrasound. I talked to the pt about his acute kidney injury and labs, and I asked him to relay some of the information that I wrote down with his family (his daughter is a home linoleum tile layer at [employer] in [place], [place]). I also updated the primary hospitalist. Continue to follow a renal protective/conservative strategy by avoidance of nephrotoxic agents, strict I's and O's, renal dosing, daily weights and renal diet when able. I will continue to closely follow with you on this complex patient who required a high degree of medical decision-making and evaluation and management. (2) Bacteremia Current Visit: Yes Status: Acute As per primary, and ideally to avoid nephrotoxins if able. (3) Superficial thrombophlebitis of right upper extremity Current Visit: Yes Status: Acute Likely contributed to his overall illness, bacteremia, and subsequent ATN. (4) CHF (congestive heart failure) Current Visit: No Status: Chronic Noted, and see above. Qualifiers: Heart failure type: unspecified Heart failure chronicity: unspecified Qualified Code(s): I50.9 - Heart failure, unspecified (5) Morbid obesity with BMI of 50.0-59.9, adult Current Visit: No Status: Chronic Chronic, and I recommend lifestyle modifications. Subjective Principal diagnosis: ZAC Interval history: The patient was seen and examined earlier today. His floor nurse was present at the time of my interview and exam, and the patient affirmed that he has not yet urinated this morning, and the nurse was prepared to collect this urine for the urine studies as ordered. The patient reported feeling a little more swollen today, but without active nausea, vomiting, or diarrhea. He did not confirm chest pain, and he said that his breathing is stable. Objective - Vital Signs Vital signs: Vital Signs Temp Pulse Resp BP Pulse Ox 03/16/19 08:55 96 03/16/19 07:04 97.5 F L 76 16 151/69 96 03/16/19 00:00 98.0 F 50 20 169/64 94 03/15/19 23:12 98.0 F 50 20 149/72 92 03/15/19 16:06 97.4 F L 50 22 124/71 95 03/15/19 12:18 97.9 F 53 22 130/74 96 Intake and Output 03/15/19 03/16/19 03/16/19 23:59 07:59 15:59 Intake Total 200 / 1080 100 / 380 280 / 380 Output Total 300 / 300 Balance 200 / 670 100 / 80 -20 / 80 Intake: IV Fluids 200 / 600 100 / 350 250 / 350 Nafcillin 2,000 MG In Dextrose 200 / 600 100 / 200 100 / 200 5% (Minibag+) 100 ML 100 ML @ 200 mls/hr IVPB Q4HR [facility] Rx#: [id number] Levaquin Premix 750mg/150 mL 150 / 150 750 mg In 150 ml @ 100 mls/hr IVPB DAILY [facility] Rx#:[id number] Oral 30 / 30 Output: Urine 300 / 300 Other: Weight 182.4 kg Blood Glucose* 198 129 Patient Weight 03/16/19 23:59 Weight 182.4 kg - General Appearance General appearance: Present: well-developed, well-nourished, appears started age, obese EENT: Present: ATNC, PERRL, mucous membranes moist Neck: Present: no JVD, supple Respiratory: Present: rales (bibasilar) Cardiology: Present: no murmurs, edema (1-2+ pretibial pitting edema bilaterally), regular rate, normal S1, normal S2 Gastrointestinal: Present: normoactive bowel sounds, no guarding, obese Integumentary: Present: warm and dry, hyperpigmentation, chronic venous stasis Neurologic: Present: no focal deficit, no asterixis, alert and oriented x3 Musculoskeletal: Present: no deformities, no erythema, no cyanosis Psychiatric: Present: mood/affect appropriate, cooperative - Lab 03/16/19 05:10 03/16/19 05:10 Most recent lab results 03/16/19 03/16/19 05:10 09:15 Calcium 8.7 Urine Creatinine 92 Urine Sodium 31.3 Consult Discharge Plan - Plan Referrals: Richard Tran DO [Primary Care Provider] -
--- NOTE | 2019-03-16 11:43 | Internal Med Progress Note ---
Hospitalist Progress Note - Encounter Date of Encounter: 03/16/19 Time of Encounter: 08:00 - Subjective Interval History: No acute events overnight. Reports improvement in his breathing but legs appear to be more swollen today. No chest pain. Feels that he is close to his baseline. - Exam Vitals: Temp Pulse Resp BP Pulse Ox 98.9 F 50 17 127/54 94 03/16/19 10:49 03/16/19 10:49 03/16/19 10:49 03/16/19 10:49 03/16/19 10:49 Exam: General: Patient is alert, no acute distress, oriented x 3 Respiratory: Breath sounds diminished at the bases with minimal end-expiratory wheezing Cardiovascular: Regular rate and rhythm. s1 and s2 normal No clicks, rubs, gallops, or murmurs. No pedal edema Abdomen: Abdomen is soft, nontender. Bowel sounds are present Musculoskeletal: Spontaneously moving all extremities Skin: warm, dry, intact. Cord-like mass felt on R elbow on the lateral aspect with resolving erythema Neuro: Alert oriented x 3 normal cranial nerves, no focal deficits - Assessment and Plan (1) Sepsis Current Visit: Yes Status: Acute Assessment and Plan: presented with fever, leukocytosis attributed to PNA and R UE thrombophlebitis but also noted to have MSSA bacteremia in both sets from 03/10 repeat culture 03/12 also grew MSSA in both sets CT C-spine was done in view of L UE radicular pain; -ve for discitis or epidural abscess TTE and ILDA without any vegetation urine strep/legionella -ve ID input appreciated, abx switched to nafcillin and levaquin added. blood cultures from 03/14 now -ve > 48 hours, if it does turner off +ve again, wo uld consider imaging the R UE. (2) Bacteremia Current Visit: Yes Status: Acute Assessment and Plan: as above for sepsis 3rd set of blood cultures taken 03/14 NGTD, follow (3) Respiratory failure with hypoxia Current Visit: Yes Status: Acute Assessment and Plan: Due to pneumonia, abx as above and improving Continue to wean FiO2 as tolerated. (4) ZAC (acute kidney injury) Current Visit: Yes Status: Acute Assessment and Plan: Cr continues to increase to 2.2 but less rapidly CPK normal, urine eos 0, urine na/Cr 31.3/92. FeNA 0.5% retroperitoneal US unremarkable discussed with nephrology, likely ATN from sepsis and bacteremia and would anticipate eventual recovery no more IVF given LE swelling (5) Pneumonia Current Visit: Yes Status: Acute Assessment and Plan: abx as above (6) Superficial thrombophlebitis of right upper extremity Current Visit: Yes Status: Acute Assessment and Plan: warm compress (7) Type 2 diabetes mellitus Current Visit: Yes Status: Chronic Assessment and Plan: continue basal-bolus insulin, better controlled on increased dose of levemir (8) PAF (paroxysmal atrial fibrillation) Current Visit: No Status: Chronic Assessment and Plan: INR was supratherapeutic at 10.5 on 03/15 -> after 5mg of Vit K, reversed to 2.1 no evidence of bleeding, Hb stable at 11.4 pharmacy to assist with Coumadin dosing holding amiodarone and beta izabela in view of bradycardia (9) Diastolic CHF Current Visit: Yes Status: Chronic Assessment and Plan: Lasix on hold as above (10) Morbid obesity with BMI of 50.0-59.9, adult Current Visit: No Status: Chronic Assessment and Plan: Lifestyle modifications emphasized (11) DVT prophylaxis Current Visit: No Status: Acute Assessment and Plan: therapeutic INR - Time Spent with Patient Total time spent is greater than 50% in coordination of care (as documented) at patient's floor/unit and/or counseling patient: 25 - 35 minutes Plan of Care Discussed with: patient (discussed with Nephrology) Internal Medicine: Result - Labs CBC & Chem 7: 03/16/19 05:10 03/16/19 05:10 Labs: Short CBC 03/16/19 Range/Units 05:10 WBC 14.4 H (4.3-11.1) K/mcL Hgb 11.4 L (12.9-16.9) g/dL Hct 38.0 (37.5-50.1) % Plt Count 323 (140-400) K/mcL Neutrophils # 11.5 H (1.6-8.9) K/mcL BMP 03/16/19 05:10 Sodium 137 Potassium 3.9 Chloride 100 Carbon Dioxide 29 BUN 56 H Creatinine 2.20 H Glucose 119 H Calcium 8.7 Urine 03/16/19 Range/Units 09:15 Urine Color Yellow (Yellow) Urine Clarity Cloudy A (Clear) Urine pH 6.0 (5.0-8.0) pH Units Ur Specific [place] 1.016 (1.010-1.025) Urine Protein 30 H (Neg-Trace) mg/dL Urine Glucose (UA) Normal (Normal) mg/dL - ABG Interpretation ABG results: PT/INR, D-dimer PT 23.9 Seconds (9.4-12.1) H D 03/16/19 05:10 - Impressions Impressions Retroperitoneum Ultrasound 03/15/19 10:00 IMPRESSION: Unremarkable ultrasound of the kidneys and urinary bladder. D/ / Zafar Ramos MD / Zafar Ramos MD Interpreting Provider: Zafar Ramos MD Consult Discharge Plan - Plan Referrals: Richard Tran DO [Primary Care Provider] - (1) Sepsis Qualifiers: Sepsis type: methicillin susceptible Staphylococcus aureus Qualified Code(s): A41.01 - Sepsis due to Methicillin susceptible Staphylococcus aureus (3) Respiratory failure with hypoxia Qualifiers: Chronicity: acute Qualified Code(s): J96.01 - Acute respiratory failure with hypoxia (5) Pneumonia Qualifiers: Pneumonia type: due to unspecified organism Laterality: bilateral Lung location: lower lobe of lung Qualified Code(s): J18.1 - Lobar pneumonia, unspecified organism (7) Type 2 diabetes mellitus Qualifiers: Diabetes mellitus fdc insulin use: with moth exterminator use Diabetes mellitus complication status: without complication Qualified Code(s): E11.9 - Type 2 diabetes mellitus without complications; 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
[2019-03-17] MEDS: Nafcillin 2,000 MG in D5% in Water (Mini-Bag+) 100 ML IVPB SCH ×6 (00:43→22:37)
[2019-03-17 03:48] LABS: Basophils # 0.1 K/mcL (0.0-0.2); Basophils % 0.5 %; Eosinophils # 0.3 K/mcL (0.0-0.6); Eosinophils % 1.8 %; Hematocrit 38.5 % (37.5-50.1); Hemoglobin 11.2 g/dL (12.9-16.9); Immature Granulocytes % 4.8 % (0-4); Lymphocytes % 6.8 %; Mean Corpuscular HGB Conc 29.1 g/dL (31.6-35.5); Mean Corpuscular Hemoglobin 25.1 pg (28.0-33.3); Mean Corpuscular Volume 86.1 fL (83.0-100.0); Mean Platelet Volume 9.2 fL (9.4-12.4); Monocytes % 7.2 %; Neutrophils # 11.1 K/mcL (1.6-8.9); Platelet Count 362 K/mcL (140-400); Red Blood Count 4.47 M/mcL (4.19-5.50); Red Cell Distribution Width 16.1 % (11.5-14.5); Segmented Neutrophils % 78.9 %; White Blood Count 14.1 K/mcL (4.3-11.1)
[2019-03-17 03:55] LABS: INR 2.1; Prothrombin Time 23.7 Seconds (9.4-12.1)
[2019-03-17 04:07] LABS: Calcium 8.5 mg/dL (8.6-10.3); Potassium 3.9 mEq/L (3.5-5.1)
[2019-03-17 04:50] LABS: Complement C3 110 mg/dL (87-200)
[2019-03-17] MEDS: *HR* Amiodarone 200 MG TABLET PO SCH (08:59)
[2019-03-17] MEDS: Lactobacillus 1 EACH CAP.SPRINK PO SCH ×2 (08:59→22:37)
[2019-03-17] MEDS: Insulin LISPRO 300 UNITS/3 ML VIAL SQ SCH ×4 (09:00→22:38)
[2019-03-17] MEDS: Insulin DETEMIR 100 UNIT/ML X5UNITS SQ SCH ×2 (09:00→22:38)
--- NOTE | 2019-03-17 09:48 | Nephrology Progress Note ---
Date of Encounter: 03/17/19 Time of Encounter: 09:05 - Assessment and Plan (1) ZAC (acute kidney injury) Current Visit: Yes Status: Acute Hyaline casts noted on UA with microscopy yesterday, and hyaline casts can be seen on a spectrum of possible findings with ATN, which is the most probable etiology of his ZAC, which is still worsening. His UOP has been borderline oliguric and d/t his dyspnea and hypoxia, there is no choice but to resume lasix, and I've ordered first dose now as discussed with the floor RN. Pt voiced understanding the pros/cons of diuretics in terms of renal function impact. No urgent SHERIFF SERGEANT today (Monday), but I will continue to follow with you each day to help determine his best renal recommendations. Continue to follow a renal protective/conservative strategy by avoidance of nephrotoxic agents, strict I's and O's, renal dosing, daily weights and renal diet when able. I will continue to closely follow with you on this complex patient who required a high degree of medical decision-making and evaluation and management. (2) Bacteremia Current Visit: Yes Status: Acute (3) Superficial thrombophlebitis of right upper extremity Current Visit: Yes Status: Acute (4) CHF (congestive heart failure) Current Visit: No Status: Chronic Qualifiers: Heart failure type: unspecified Heart failure chronicity: unspecified Qualified Code(s): I50.9 - Heart failure, unspecified (5) Morbid obesity with BMI of 50.0-59.9, adult Current Visit: No Status: Chronic Subjective Principal diagnosis: ZAC Interval history: The patient was seen and examined earlier today. His floor nurse was present again at the time of my interview and exam, and the patient affirmed feeling more short of breath; plus his Pulse Ox has been dropping several times. He affirmed that he normally takes Lasix at home. Objective - Vital Signs Vital signs: Vital Signs Temp Pulse Resp BP Pulse Ox 03/17/19 07:34 98.9 F 55 16 149/80 96 03/17/19 04:39 97.6 F 44 17 119/59 96 03/16/19 23:48 97.7 F 48 16 168/67 95 03/16/19 19:30 97.6 F 50 18 149/53 98 03/16/19 15:42 97.3 F L 45 17 154/79 94 03/16/19 10:49 98.9 F 50 17 127/54 94 Intake and Output 03/16/19 03/17/19 03/17/19 23:59 07:59 15:59 Intake Total 1500.5 / 1980.5 200 / 200 Output Total 0 / 300 Balance 1500.5 / 1680.5 200 / 200 Intake: IV Fluids 1500.5 / 1950.5 200 / 200 0.9 % Sodium Chloride 1,000 ML 1000 / 1000 @ 50 mls/hr IVC .Q20H [facility] Rx#: [id number] Nafcillin 2,000 MG In Dextrose 300 / 600 200 / 200 5% (Minibag+) 100 ML 100 ML @ 200 mls/hr IVPB Q4HR [facility] Rx#: [id number] AquaMephyton 5 MG In 0.9 % 50.5 / 50.5 Sodium Chloride 50 ML @ 100 mls /hr IVPB ONCE ONE Rx#: [id number] Levaquin Premix 750mg/150 mL 150 / 300 750 mg In 150 ml @ 100 mls/hr IVPB DAILY [facility] Rx#:[id number] Oral 0 / 30 Output: Urine 0 / 300 Other: Blood Glucose* 187 143 - General Appearance Exam: General appearance: Present: well-developed, well-nourished, appears started age, obese EENT: Present: ATNC, PERRL, mucous membranes moist Neck: Present: no JVD, supple Respiratory: Present: rales (bibasilar) Cardiology: Present: no murmurs, edema (1-2+ pretibial pitting edema bilaterally), regular rate, normal S1, normal S2 Gastrointestinal: Present: normoactive bowel sounds, no guarding, obese Integumentary: Present: warm and dry, hyperpigmentation, chronic venous stasis Neurologic: Present: no focal deficit, no asterixis, alert and oriented x3 Musculoskeletal: Present: no deformities, no erythema, no cyanosis Psychiatric: Present: mood/affect appropriate, cooperative - Lab 03/18/19 05:42 03/18/19 05:42 Most recent lab results 03/17/19 03:25 Calcium 8.5 L Consult Discharge Plan - Plan Referrals: Richard Tran DO [Primary Care Provider] -
[2019-03-17] MEDS: levoFLOXacin 750 MG/150 ML 750 MG/150 ML BAG IVPB SCH (09:53)
[2019-03-17] MEDS: Furosemide 20 MG/2 ML VIAL IVP SCH ×2 (09:53→16:44)
--- NOTE | 2019-03-17 12:17 | Internal Med Progress Note ---
Hospitalist Progress Note - Encounter Date of Encounter: 03/17/19 Time of Encounter: 10:00 - Subjective Interval History: No acute events overnight. Patient reported improvement in his breathing henec we attempted to titrate him off the oxygen without success. Also noted to have slightly more swelling in his LEs today. Otherwise, denies any fever/chills, nausea/vomiting, worsening cough or sputum production, abdominal pain, or dysuria. - Exam Vitals: Temp Pulse Resp BP Pulse Ox 97.9 F 48 22 131/54 92 03/17/19 11:14 03/17/19 11:14 03/17/19 11:14 03/17/19 11:14 03/17/19 11:14 Exam: General: Patient is alert, no acute distress, oriented x 3 Respiratory: Mild bibasilar Rales, unable to appreciate rhonchi/wheezes Cardiovascular: Regular rate and rhythm. s1 and s2 normal No clicks, rubs, gallops, or murmurs. Bilateral lower extremity edema up to his mid shins Abdomen: Abdomen is soft, nontender. Bowel sounds are present Musculoskeletal: No joint swelling or effusion Skin: warm, dry, intact. Cord-like mass felt on R elbow on the lateral aspect with resolving erythema Neuro: Alert oriented x 3 normal cranial nerves, no focal deficits - Assessment and Plan (1) Sepsis Current Visit: Yes Status: Acute Assessment and Plan: presented with fever, leukocytosis attributed to PNA and R UE thrombophlebitis but also noted to have MSSA bacteremia in both sets from 03/10 repeat culture 03/12 also grew MSSA in both sets TTE and ILDA without any vegetation CT C-spine was done in view of L UE radicular pain; -ve for discitis or epidural abscess urine strep/legionella -ve ID input appreciated, abx switched to nafcillin and levaquin added. Continue for now blood cultures from 03/14 now -ve > 72 hours will discuss with ID tomorrow for abx rec in plan for discharge (2) Bacteremia Current Visit: Yes Status: Acute Assessment and Plan: as above for sepsis 3rd set of blood cultures taken 03/14 NGTD, follow (3) Respiratory failure with hypoxia Current Visit: Yes Status: Acute Assessment and Plan: Due to pneumonia, abx as above however, pt is not able to be weaned off on O2 and started to develop LE edema concerning for fluid overload appreciate nephrology input, will resume lasix today (4) ZAC (acute kidney injury) Current Visit: Yes Status: Acute Assessment and Plan: Cr continues to increase to 2.43 CPK normal, urine eos 0, urine na/Cr 31.3/92. FeNA 0.5% retroperitoneal US unremarkable appreciate nephrology input, likely ATN from sepsis and bacteremia. Given his persistent hypoxia, will restart diuresis today per nephrology (5) Diastolic CHF Current Visit: Yes Status: Acute Assessment and Plan: persistent hypoxia and worsening LE edema concerning for mild fluid overload restarted on lasix per nephrology (6) Pneumonia Current Visit: Yes Status: Acute Assessment and Plan: abx as above (7) Superficial thrombophlebitis of right upper extremity Current Visit: Yes Status: Acute Assessment and Plan: warm compress Would consider imaging of right upper extremity if 3rd blood cultures negative turner apprentice positive for MSSA (8) Type 2 diabetes mellitus Current Visit: Yes Status: Chronic Assessment and Plan: continue basal-bolus insulin, better controlled on increased dose of levemir (9) PAF (paroxysmal atrial fibrillation) Current Visit: No Status: Chronic Assessment and Plan: INR was supratherapeutic at 10.5 on 03/15 -> after 5mg of Vit K, reversed to 2.1 continue to remain stable at 2.1 today resume warfarin today, pharmacy to dose no evidence of bleeding, Hb stable at 11.4 holding amiodarone and beta izabela in view of asymptomatic sinus bradycardia. If it is persistent by tomorrow, would consult cardiology (10) Morbid obesity with BMI of 50.0-59.9, adult Current Visit: No Status: Chronic Assessment and Plan: Lifestyle modifications emphasized (11) DVT prophylaxis Current Visit: No Status: Acute Assessment and Plan: therapeutic INR - Time Spent with Patient Total time spent is greater than 50% in coordination of care (as documented) at patient's floor/unit and/or counseling patient: 25 - 35 minutes Plan of Care Discussed with: patient Internal Medicine: Result - Labs CBC & Chem 7: 03/17/19 03:25 03/17/19 03:25 Labs: Short CBC 03/17/19 Range/Units 03:25 WBC 14.1 H (4.3-11.1) K/mcL Hgb 11.2 L (12.9-16.9) g/dL Hct 38.5 (37.5-50.1) % Plt Count 362 (140-400) K/mcL Neutrophils # 11.1 H (1.6-8.9) K/mcL BMP 03/17/19 03:25 Sodium 136 Potassium 3.9 Chloride 98 Carbon Dioxide 32 H BUN 63 H Creatinine 2.43 H Glucose 153 H Calcium 8.5 L - ABG Interpretation ABG results: PT/INR, D-dimer PT 23.7 Seconds (9.4-12.1) H 03/17/19 03:25 Consult Discharge Plan - Plan Referrals: Richard Tran DO [Primary Care Provider] - (1) Sepsis Qualifiers: Sepsis type: methicillin susceptible Staphylococcus aureus Qualified Code(s): A41.01 - Sepsis due to Methicillin susceptible Staphylococcus aureus (3) Respiratory failure with hypoxia Qualifiers: Chronicity: acute Qualified Code(s): J96.01 - Acute respiratory failure with hypoxia (5) Diastolic CHF Qualifiers: Heart failure chronicity: acute on chronic Qualified Code(s): I50.33 - Acute on chronic diastolic (congestive) heart failure (6) Pneumonia Qualifiers: Pneumonia type: due to unspecified organism Laterality: bilateral Lung location: lower lobe of lung Qualified Code(s): J18.1 - Lobar pneumonia, unspecified organism (8) Type 2 diabetes mellitus Qualifiers: Diabetes mellitus fpc insulin use: with fpc use Diabetes mellitus complication status: without complication Qualified Code(s): E11.9 - Type 2 diabetes mellitus without complications; Z79.4 - 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
[2019-03-17] MEDS ORDERED: Warfarin perPT PO PRN (18:00)
[2019-03-17] MEDS ORDERED: *HR* Warfarin 3 MG TABLET PO ONE (18:00)
[2019-03-18] MEDS: Nafcillin 2,000 MG in D5% in Water (Mini-Bag+) 100 ML IVPB SCH ×7 (01:08→23:59)
[2019-03-18 05:56] LABS: Basophils # 0.1 K/mcL (0.0-0.2); Basophils % 0.6 %; Eosinophils # 0.1 K/mcL (0.0-0.6); Hematocrit 38.7 % (37.5-50.1); Hemoglobin 11.3 g/dL (12.9-16.9); Immature Granulocytes % 6.1 % (0-4); Lymphocytes # 0.6 K/mcL (0.6-4.6); Lymphocytes % 5.6 %; Mean Corpuscular HGB Conc 29.2 g/dL (31.6-35.5); Mean Corpuscular Hemoglobin 25.5 pg (28.0-33.3); Mean Corpuscular Volume 87.2 fL (83.0-100.0); Mean Platelet Volume 8.8 fL (9.4-12.4); Monocytes # 0.7 K/mcL (0.0-1.3); Monocytes % 6.3 %; Platelet Count 339 K/mcL (140-400); Red Blood Count 4.44 M/mcL (4.19-5.50); Red Cell Distribution Width 16.4 % (11.5-14.5); Segmented Neutrophils % 80.4 %; White Blood Count 10.9 K/mcL (4.3-11.1)
[2019-03-18 06:01] LABS: Neutrophils # 8.8 K/mcL (1.6-8.9)
[2019-03-18 06:03] LABS: INR 2.7
[2019-03-18 06:18] LABS: Calcium 8.4 mg/dL (8.6-10.3); Magnesium 2.3 mg/dL (1.6-2.6); Platelet Estimate Normal (Normal)
[2019-03-18] MEDS: Lactobacillus 1 EACH CAP.SPRINK PO SCH ×2 (08:55→20:02)
[2019-03-18] MEDS: Furosemide 20 MG/2 ML VIAL IVP SCH ×2 (08:55→16:57)
[2019-03-18] MEDS: Insulin DETEMIR 100 UNIT/ML X5UNITS SQ SCH ×2 (08:56→20:02)
[2019-03-18] MEDS: Insulin LISPRO 300 UNITS/3 ML VIAL SQ SCH ×4 (08:56→20:03)
--- NOTE | 2019-03-18 08:56 | Infectious Disease Progress No ---
ID Progress Note Date of Encounter: 03/18/19 Time of Encounter: 08:54 - Subjective Subjective: Patient seen and examined. No acute events noted overnight. Patient states he feels better today. Denies chest or neck pain this morning. States that shortness of breath and cough are Improved. Reports a dry cough. Denies fevers, chills, or rigors. Denies any nausea, vomiting, diarrhea, or constipation. Denies abdominal pain or urinary complaints. States he had a bowel movement was yesterday. Denies oral thrush or skin rashes. States his appetite is a little better. - Objective CBC & Chem 7: 03/19/19 04:16 03/19/19 04:16 - Exam Vitals: Temp Pulse Resp BP Pulse Ox 96.3 F L 46 16 126/48 96 03/18/19 07:44 03/18/19 07:44 03/18/19 07:44 03/18/19 07:44 03/18/19 07:44 Exam: Head: Atraumatic, normal inspection, normocephalic. Eye: EOMI, PERRLA, no scleral icterus noted. No subconjunctival hemorrhage noted. ENT: Mucous membranes moist. No odontogenic infection noted. Neck: Normal inspection, no meningismus. Respiratory: Clear to auscultation. No rales, respiratory distress, rhonchi, or wheezes noted. Cardiovascular: Regular rate, irregular rhythm, S1 and S2 audible. No murmurs, rubs, or gallops. GI: Soft, obese, normal bowel sounds. Nontender Extremities:No joint swelling or tenderness noted. 1+ edema noted to bilateral lower extremities. Erythema and scabbed lesion noted to the right antecubital fossa had previous IV insertion site. No tenderness noted with palpation. No swelling. Venous stasis dermatitis noted to the bilateral lower extremities. Neurological: Alert, oriented 3, no focal deficits. Psychiatric: normal affect, normal mood. Skin: Dry, intact, warm. Normal color. No rashes. No endocarditis stigmata noted. - Assessment and Plan (1) Sepsis Current Visit: Yes Status: Acute The patient had 2 sepsis criteria. Likely secondary to bacteremia and thrombophlebitis of the right upper extremity. Improved. WBC normal. He has been afebrile. Blood cultures drawn 03/10/19 are +2 out of 2 sets for MSSA. Repeat blood cultures drawn 03/12/19 are positive 2/2 sets. Repeat blood cultures drawn 03/14/19 are no growth to date x 2 sets. Qualifiers: Sepsis type: methicillin susceptible Staphylococcus aureus Qualified Code(s): A41.01 - Sepsis due to Methicillin susceptible Staphylococcus aureus SNOMED Code(s): 31784188 (2) Bacteremia Current Visit: Yes Status: Resolved Causative organism: MSSA. Source: Likely right upper extremity thrombophlebitis. Blood cultures drawn 03/10/19 are +2 out of 2 sets for MSSA. Repeat blood cultures drawn 03/12/19 are positive 2/2 sets. Repeat blood cultures drawn 03/14/19 are no growth to date x 2 sets. Uncomplicated. No endocarditis stigmata noted on exam. Transthoracic echocardiogram was suboptimal for evaluation of the valves. ILDA negative for endocarditis. Rheumatoid factor elevated. The patient has one major and 2 minor modified Tompkins criteria. Currently on IV Nafcillin. SNOMED Code(s): 7090583 (3) Superficial thrombophlebitis of right upper extremity Current Visit: Yes Status: Acute Location: Right upper extremity. Likely secondary to recent IV insertion. Venous Doppler study shows a superficial venous thrombosis in the right cephalic vein. Clinically improved. Currently on IV Nafcillin. SNOMED Code(s): 92359521315134384 (4) Pneumonia Current Visit: Yes Status: Acute Chest x-ray showed findings consistent with cardiomegaly with heart failure. CT abdomen and pelvis showed bibasilar infiltrate or atelectasis versus pn eumonitis. The patient presented with dyspnea, but BNP elevated as well. Based on clinical picture, feel that the patient's symptoms are more likely related to CHF exacerbation and not PNA. UATs negative. MRSA screen negative. CT neck showed RUL consolidation and pulmonary vascular congestion. Currently on Levaquin. Qualifiers: Pneumonia type: due to unspecified organism Laterality: bilateral Lung location: lower lobe of lung Qualified Code(s): J18.1 - Lobar pneumonia, unspecified organism SNOMED Code(s): 360366602 (5) ZAC (acute kidney injury) Current Visit: Yes Status: Acute Likely secondary to sepsis. Continues to worsen. Nephrology consulted and following. Avoid nephrotoxins as able and dose-adjust antibiotics. SNOMED Code(s): 87123144, 60267176 (6) Transaminitis Current Visit: Yes Status: Acute Likely secondary to hepatic steatosis as noted on CT of the abdomen and pelvis and liver ultrasound. Repeat LFTs improved. Resolved. Abdominal exam benign. Consider outpatient GI referral. SNOMED Code(s): 735762367, 054260959 (7) CHF (congestive heart failure) Current Visit: No Status: Chronic Qualifiers: Heart failure type: unspecified Heart failure chronicity: unspecified Qualified Code(s): I50.9 - Heart failure, unspecified SNOMED Code(s): 05994500 (8) Type 2 diabetes mellitus Current Visit: Yes Status: Chronic Recommend aggressive glucose monitoring and control to promote wound healing and prevent re-infection. Management per the primary team. Qualifiers: Diabetes mellitus termite helper insulin use: with snf use Diabetes mellitus complication status: without complication Qualified Code(s): E11.9 - Type 2 diabetes mellitus without complications; Z79.4 - USP (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 SNOMED Code(s): 28177641 (9) Morbid obesity with BMI of 50.0-59.9, adult Current Visit: No Status: Chronic SNOMED Code(s): 536296516, 64869218422374 (10) Drug allergy, antibiotic Current Visit: Yes Status: Acute Reports hives when he has taken cefazolin in the past. Tolerating Zosyn without a problem. Tolerating nafcillin so far. SNOMED Code(s): 406199028637488 - Recommendations Recommendations: Await repeat blood cultures to finalize. ZAC management per the nephrology team. Continue nafcillin 2 g IV every 4 hours (does not require dose-adjustment for ZAC). Continue Levaquin 750mg IV Q48H, dose-adjusted for ZAC. (day 5) Duration of treatment depends on the clinical picture, but likely 14 days of IV Nafcillin from the first set of negative blood cultures (treat through 03/27/19). Can transition to 12 grams IV Q24H via continuous IV infusion. Can discontinue Levaquin after 7 day course (through 03/20/19). Monitor renal function and dose adjust antibiotics. web services manager to assist with discharge planning. Discussed with nephrology. Will need tunneled PICC line placed prior to discharge. Will need weekly CBC, BUN/Cr. Will need weekly IV care per protocol. Consult Discharge Plan - Plan Referrals: Richard Tran DO [Primary Care Provider] - - Attending Attestation I have personally performed a face to face evaluation on this patient. I have reviewed and agree with the care plan. History and Exam by me shows: Assessment and plan 1.Sepsis 2.MSSA bacteremia 2 out of 2 sets positive 03/10/2019 source likely right upper extremity thrombophlebitis 3.Superficial thrombophlebitis right upper extremity from previous recent IV insertion site 4.Pneumonia causative organism not clear 5.CHF Diabetes mellitus type 2 Recommendations Await repeat blood cultures to finalize. ZAC management per the nephrology team. Continue nafcillin 2 g IV every 4 hours (does not require dose-adjustment for ZAC). Continue Levaquin 750mg IV Q48H, dose-adjusted for ZAC. (day 5) Duration of treatment depends on the clinical picture, but likely 14 days of IV Nafcillin from the first set of negative blood cultures (treat through 03/27/19). Can transition to 12 grams IV Q24H via continuous IV infusion. Can discontinue Levaquin after 7 day course (through 03/20/19). Monitor renal function and dose adjust antibiotics. web services manager to assist with discharge planning. Discussed with nephrology. Will need tunneled PICC line placed prior to discharge. Will need weekly CBC, BUN/Cr. Will need weekly IV care per protocol.
--- NOTE | 2019-03-18 09:36 | Nephrology Progress Note ---
Date of Encounter: 03/18/19 Time of Encounter: 08:40 - Assessment and Plan (1) ZAC (acute kidney injury) Current Visit: Yes Status: Acute Nonoliguric acute kidney injury, secondary to ATN. Continue to follow this renal conservative protective/strategy, and he does not require renal replacement therapy today though me may need it soon as his SCr continues to worsen despite optimal medical therapy for the ZAC I spoke with his daughter, and the hospitalist to strategize best possible outcomes. His daughter thanked me for the call/update. Hyaline casts were noted on UA with microscopy, and hyaline casts can be seen on a spectrum of possible findings with ATN, which is the most probable etiology of his ZAC. Volume status: edematous with diminished breath sounds and prior CXR suggestive of pulm vascular congestion, so this will require continuation of a loop diuretic. Continue to follow a renal protective/conservative strategy by avoidance of nephrotoxic agents, strict I's and O's, renal dosing, daily weights and renal diet when able. I will continue to closely follow with you on this complex patient who required a high degree of medical decision-making and evaluation and management. (2) Bacteremia Current Visit: Yes Status: Acute For IV access for jail Abx, I recommend avoiding catheters that could affect veins in the arms, which may be needed someday for an AVF. Consider a tunneled line, if possible. Discussed with ID. (3) Superficial thrombophlebitis of right upper extremity Current Visit: Yes Status: Acute (4) CHF (congestive heart failure) Current Visit: No Status: Chronic Qualifiers: Heart failure type: unspecified Heart failure chronicity: unspecified Qualified Code(s): I50.9 - Heart failure, unspecified (5) Morbid obesity with BMI of 50.0-59.9, adult Current Visit: No Status: Chronic Subjective Principal diagnosis: ZAC Interval history: The patient was seen and examined earlier today. He affirms feeling about the same, and said that his cough is about the same. He feels that he is making urine though not as much is typical. He did not affirm nausea, vomiting, or diarrhea; however, he affirmed having diminished appetite though he is still able to eat, he reported. His daughter is a home hemodialysis nurse, and he gave me permission to speak with her. Objective - Vital Signs Vital signs: Vital Signs Temp Pulse Resp BP Pulse Ox 03/18/19 07:44 96.3 F L 46 16 126/48 96 03/18/19 03:58 45 17 156/77 95 03/18/19 01:10 97.5 F L 03/18/19 00:22 50 20 171/61 93 03/17/19 20:17 97.6 F 51 18 147/57 93 03/17/19 16:45 97 03/17/19 16:29 98 F 55 17 177/64 97 03/17/19 11:14 97.9 F 48 22 131/54 92 Intake and Output 03/17/19 03/18/19 03/18/19 23:59 07:59 15:59 Intake Total 440 / 900 200 / 200 Balance 440 / 900 200 / 200 Intake: IV Fluids 200 / 600 200 / 200 Nafcillin 2,000 MG In Dextrose 200 / 600 200 / 200 5% (Minibag+) 100 ML 100 ML @ 200 mls/hr IVPB Q4HR [facility] Rx#: [id number] Oral 240 / 300 Other: Meal Dinner Percent of Meal Consumed 25% Blood Glucose* 181 153 - General Appearance Exam: General appearance: Present: well-developed, well-nourished, appears started age, obese EENT: Present: ATNC, PERRL, mucous membranes moist Neck: Present: no JVD, supple Respiratory: Present: rales (bibasilar) Cardiology: Present: no murmurs, edema (1-2+ pretibial pitting edema bilaterally), regular rate, normal S1, normal S2 Gastrointestinal: Present: normoactive bowel sounds, no guarding, obese Integumentary: Present: warm and dry, hyperpigmentation, chronic venous stasis Neurologic: Present: no focal deficit, no asterixis, alert and oriented x3 Musculoskeletal: Present: no deformities, no erythema, no cyanosis Psychiatric: Present: mood/affect appropriate, cooperative - Lab 03/18/19 05:42 03/18/19 05:42 Most recent lab results 03/18/19 05:42 Calcium 8.4 L Magnesium 2.3 Consult Discharge Plan - Plan Referrals: Richard Tran DO [Primary Care Provider] -
--- NOTE | 2019-03-18 11:26 | Internal Med Progress Note ---
Hospitalist Progress Note - Encounter Date of Encounter: 03/18/19 Time of Encounter: 08:15 - Subjective Interval History: No acute events overnight. States that he is breathing more comfortably today than yesterday. Denies any chest pain, palpitation, or lightheadedness. - Exam Vitals: Temp Pulse Resp BP Pulse Ox 96.3 F L 46 16 126/48 96 03/18/19 07:44 03/18/19 07:44 03/18/19 07:44 03/18/19 07:44 03/18/19 08:50 Exam: General: Patient is alert, no acute distress, oriented x 3 Respiratory: Min bibasilar rales, unable to appreciate rhonchi/wheezes Cardiovascular: Regular rate and rhythm. s1 and s2 normal No clicks, rubs, gallops, or murmurs. Bilateral lower extremity edema up to his mid shins Abdomen: Abdomen is soft, nontender. Bowel sounds are present Musculoskeletal: No joint swelling or effusion Skin: warm, dry, intact. Cord-like mass felt on R elbow on the lateral aspect with resolving erythema Neuro: Alert oriented x 3 normal cranial nerves, no focal deficits - Assessment and Plan (1) Sepsis Current Visit: Yes Status: Acute Assessment and Plan: presented with fever, leukocytosis attributed to PNA and R UE thrombophlebitis but also noted to have MSSA bacteremia in both sets from 03/10 repeat culture 03/12 also grew MSSA in both sets TTE and ILDA without any vegetation CT C-spine was done in view of L UE radicular pain; -ve for discitis or epidural abscess urine strep/legionella -ve ID input appreciated, abx switched to nafcillin and levaquin added. Will discuss regarding the final regime of abx in anticipation of discharge blood cultures from 03/14 now -ve > 72 hours (2) Bacteremia Current Visit: Yes Status: Acute Assessment and Plan: as above for sepsis 3rd set of blood cultures taken 03/14 NGTD, follow (3) Respiratory failure with hypoxia Current Visit: Yes Status: Acute Assessment and Plan: Due to pneumonia, abx as above however, pt is not able to be weaned off on O2 and started to develop LE edema concerning for fluid overload appreciate nephrology input, lasix resumed yesterday with increase in Cr. Will defer diuretics to Nephro. (4) ZAC (acute kidney injury) Current Visit: Yes Status: Acute Assessment and Plan: Cr continues to increase to 2.9 unfortunately CPK normal, urine eos 0, urine na/Cr 31.3/92. FeNA 0.5% retroperitoneal US unremarkable appreciate nephrology input, likely ATN from sepsis and bacteremia. Given his persistent hypoxia, started on diuresis with further increase in Cr. 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 GENERAL (5) Diastolic CHF Current Visit: Yes Status: Acute Assessment and Plan: persistent hypoxia and worsening LE edema concerning for mild fluid overload restarted on lasix per nephrology (6) Pneumonia Current Visit: Yes Status: Acute Assessment and Plan: abx as above (7) Superficial thrombophlebitis of right upper extremity Current Visit: Yes Status: Acute Assessment and Plan: warm compress Would consider imaging of right upper extremity if 3rd blood cultures returned case inspector positive for MSSA (8) Type 2 diabetes mellitus Current Visit: Yes Status: Chronic Assessment and Plan: continue basal-bolus insulin, better controlled on increased dose of levemir (9) PAF (paroxysmal atrial fibrillation) Current Visit: No Status: Chronic Assessment and Plan: INR was supratherapeutic at 10.5 on 03/15 -> after 5mg of Vit K, reversed to 2.1 warfarin resumed yesterday, INR 2.7. Pharmacy to dose no evidence of bleeding, Hb stable at 11.3 D/c amiodarone and beta izabela in view of asymptomatic sinus bradycardia. (10) Morbid obesity with BMI of 50.0-59.9, adult Current Visit: No Status: Chronic Assessment and Plan: Lifestyle modifications emphasized (11) DVT prophylaxis Current Visit: No Status: Acute Assessment and Plan: therapeutic INR - Time Spent with Patient Total time spent is greater than 50% in coordination of care (as documented) at patient's floor/unit and/or counseling patient: 25 - 35 minutes Plan of Care Discussed with: patient (discussed with Nephrology) Internal Medicine: Result - Labs CBC & Chem 7: 03/18/19 05:42 03/18/19 05:42 Labs: Short CBC 03/18/19 Range/Units 05:42 WBC 10.9 (4.3-11.1) K/mcL Hgb 11.3 L (12.9-16.9) g/dL Hct 38.7 (37.5-50.1) % Plt Count 339 (140-400) K/mcL Neutrophils # 8.8 (1.6-8.9) K/mcL BMP 03/18/19 05:42 Sodium 137 Potassium 4.0 Chloride 96 L Carbon Dioxide 29 BUN 72 H Creatinine 2.90 H Glucose 171 H Calcium 8.4 L - ABG Interpretation ABG results: PT/INR, D-dimer PT 31.0 Seconds (9.4-12.1) H 03/18/19 05:42 Consult Discharge Plan - Plan Referrals: Richard Tran DO [Primary Care Provider] - (1) Sepsis Qualifiers: Sepsis type: methicillin susceptible Staphylococcus aureus Qualified Code(s): A41.01 - Sepsis due to Methicillin susceptible Staphylococcus aureus (3) Respiratory failure with hypoxia Qualifiers: Chronicity: acute Qualified Code(s): J96.01 - Acute respiratory failure with hypoxia (5) Diastolic CHF Qualifiers: Heart failure chronicity: acute on chronic Qualified Code(s): I50.33 - Acute on chronic diastolic (congestive) heart failure (6) Pneumonia Qualifiers: Pneumonia type: due to unspecified organism Laterality: bilateral Lung location: lower lobe of lung Qualified Code(s): J18.1 - Lobar pneumonia, unspecified organism (8) Type 2 diabetes mellitus 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
[2019-03-18 14:29] LABS: ANA IgG by ELISA NONE DETECTED (None Detected)
[2019-03-18 21:43] LABS: Kappa Qnt Free Light Chains 10.8 mg/dL (0.33-1.94); Lambda Qnt Free Light Chains 5.94 mg/dL (0.57-2.63)
[2019-03-19] MEDS: Nafcillin 2,000 MG in D5% in Water (Mini-Bag+) 100 ML IVPB SCH ×6 (04:16→23:48)
[2019-03-19 04:30] LABS: Hematocrit 38.6 % (37.5-50.1); Hemoglobin 11.5 g/dL (12.9-16.9); Mean Corpuscular HGB Conc 29.8 g/dL (31.6-35.5); Mean Corpuscular Hemoglobin 25.3 pg (28.0-33.3); Mean Corpuscular Volume 84.8 fL (83.0-100.0); Mean Platelet Volume 8.8 fL (9.4-12.4); Platelet Count 388 K/mcL (140-400); Red Blood Count 4.55 M/mcL (4.19-5.50); Red Cell Distribution Width 16.6 % (11.5-14.5); White Blood Count 12.7 K/mcL (4.3-11.1)
[2019-03-19 04:35] LABS: INR 3.6
[2019-03-19 04:45] LABS: Calcium 8.4 mg/dL (8.6-10.3); Phosphorous 6.6 mg/dL (2.7-4.5); Potassium 3.8 mEq/L (3.5-5.1)
[2019-03-19 05:38] LABS: Alpha 2 Globulin (PEP) 1.01 g/dL (0.48-1.05)
[2019-03-19] MEDS: Insulin LISPRO 300 UNITS/3 ML VIAL SQ SCH ×4 (07:51→20:12)
[2019-03-19] MEDS: Lactobacillus 1 EACH CAP.SPRINK PO SCH ×2 (07:56→20:12)
[2019-03-19] MEDS: Furosemide 20 MG/2 ML VIAL IVP SCH ×2 (07:56→16:30)
[2019-03-19] MEDS: Insulin DETEMIR 100 UNIT/ML X5UNITS SQ SCH ×2 (08:30→20:13)
[2019-03-19 08:55] LABS: IFE Reflexed NOT DONE
[2019-03-19] MEDS ORDERED: levoFLOXacin 750 MG/150 ML 750 MG/150 ML BAG IVPB SCH (09:00)
[2019-03-19 09:02] LABS: Myeloperoxidase Ab 0 AU/mL (0-19); Serine Protease-3 Antibody 4 AU/mL (0-19)
--- NOTE | 2019-03-19 09:55 | Nephrology Progress Note ---
Date of Encounter: 03/19/19 Time of Encounter: 08:35 - Assessment and Plan (1) ZAC (acute kidney injury) Current Visit: Yes Status: Acute Still consistent with ATN. Hyaline casts were noted on UA with microscopy, and hyaline casts can be seen on a spectrum of possible findings with ATN, which is the most probable etiology of his ZAC. Continue to follow a renal protective/conservative strategy, as he does not have urgent indications for LOKIE ENGINEER today. He will need to remain hospitalized for daily lab monitoring during this episode of acute renal failure. Volume status: edematous with diminished breath sounds and prior CXR suggestive of pulm vascular congestion, so he requires continuation of a loop diuretic, which was started after a trial of gentle IVF were not effective in improving his renal function. Continue to follow a renal protective/conservative strategy by avoidance of nephrotoxic agents, strict I's and O's, renal dosing, daily weights and renal diet when able. I will continue to closely follow with you on this complex patient who required a high degree of medical decision-making and evaluation and management. (2) Bacteremia Current Visit: Yes Status: Acute For IV access for exterminator helper termite Abx, I recommend avoiding catheters that could affect veins in the arms, which may be needed someday for an AVF. Consider a tunneled line, if possible. Discussed with ID earlier this week. (3) Superficial thrombophlebitis of right upper extremity Current Visit: Yes Status: Acute Likely contributed to his overall illness, bacteremia, and subsequent ATN. (4) CHF (congestive heart failure) Current Visit: No Status: Chronic Noted, and see above. Qualifiers: Heart failure type: unspecified Heart failure chronicity: unspecified Qualified Code(s): I50.9 - Heart failure, unspecified (5) Morbid obesity with BMI of 50.0-59.9, adult Current Visit: No Status: Chronic Chronic, and I recommend lifestyle modifications. Subjective Principal diagnosis: ZAC Interval history: The patient was seen and examined earlier today; and, his floor RN was present at the time. He did not affirm uremic symptoms such as N/V/D or diminished appetite or loss of UOP. He has been urinating in the commode, per report, and so it is not clear how much urine he is making, though the patient feels like he is producing more urine today than yesterday, he said. Objective - Vital Signs Vital signs: Vital Signs Temp Pulse Resp BP Pulse Ox 03/19/19 07:04 95.2 F L 43 20 125/54 96 03/19/19 04:06 97.9 F 46 18 155/70 95 03/18/19 23:15 98.3 F 52 18 127/60 96 03/18/19 19:16 97.4 F L 50 18 131/57 97 03/18/19 17:19 42 17 137/48 93 03/18/19 12:16 97.6 F 46 22 112/53 93 03/18/19 12:09 44 18 95 Intake and Output 03/18/19 03/19/19 03/19/19 23:59 07:59 15:59 Intake Total 200 / 660 200 / 300 100 / 300 Balance 200 / 660 200 / 300 100 / 300 Intake: IV Fluids 200 / 600 200 / 300 100 / 300 Nafcillin 2,000 MG In Dextrose 200 / 600 200 / 300 100 / 300 5% (Minibag+) 100 ML 100 ML @ 200 mls/hr IVPB Q4HR [facility] Rx#: [id number] Other: Stool Size Large Large Stool Consistency soft soft Stool Color Brown # Voids 1 1 # Bowel Movements 1 Weight 183.9 kg Blood Glucose* 182 138 Patient Weight 03/19/19 23:59 Weight 183.9 kg - General Appearance General appearance: Present: well-developed, well-nourished, appears started age, obese EENT: Present: ATNC, PERRL, mucous membranes moist Neck: Present: no JVD, supple Respiratory: Present: no kyphosis, clear (but dimininished in the bases and somewhat limited in auscultation due to his body habitus). Absent: wheezing Cardiology: Present: edema (1+ pretibial non tense pitting edema bilaterally), n ormal S1, normal S2 Gastrointestinal: Present: normoactive bowel sounds, no tenderness, no guarding, obese Integumentary: Present: warm and dry, hyperpigmentation Neurologic: Present: no focal deficit, no asterixis, alert and oriented x3 Musculoskeletal: Present: no cyanosis, no clubbing Psychiatric: Present: mood/affect appropriate, cooperative - Lab 03/19/19 04:16 03/19/19 04:16 Most recent lab results 03/19/19 04:16 Calcium 8.4 L Phosphorus 6.6 H Consult Discharge Plan - Plan Referrals: Richard Tran DO [Primary Care Provider] -
--- NOTE | 2019-03-19 10:28 | Infectious Disease Progress No ---
ID Progress Note Date of Encounter: 03/19/19 Time of Encounter: 10:26 - Subjective Subjective: Patient seen and examined. No acute events noted overnight. Patient states he doesn't feel very well today. Denies chest or neck pain this morning. States that shortness of breath and cough are Improved. Reports a dry cough. Denies fevers, chills, or rigors. Denies any nausea, vomiting,or constipation. Reports diarrhea. Spoke with nursing who states stools are loose and "fluffy," but not watery or mucousy. Denies abdominal pain or urinary complaints. Denies oral thrush or skin rashes. States his appetite is a little better. - Objective CBC & Chem 7: 03/19/19 04:16 03/19/19 04:16 - Exam Vitals: Temp Pulse Resp BP Pulse Ox 95.2 F L 43 20 125/54 96 03/19/19 07:04 03/19/19 07:04 03/19/19 07:04 03/19/19 07:04 03/19/19 07:04 Exam: Head: Atraumatic, normal inspection, normocephalic. Eye: EOMI, PERRLA, no scleral icterus noted. No subconjunctival hemorrhage noted. ENT: Mucous membranes moist. No odontogenic infection noted. Neck: Normal inspection, no meningismus. Respiratory: Clear to auscultation. No rales, respiratory distress, rhonchi, or wheezes noted. Cardiovascular: Regular rate, irregular rhythm, S1 and S2 audible. No murmurs, rubs, or gallops. GI: Soft, obese, normal bowel sounds. Nontender Extremities:No joint swelling or tenderness noted. Trace edema noted to bilateral lower extremities. Erythema and scabbed lesion noted to the right antecubital fossa had previous IV insertion site. No tenderness noted with p alpation. No swelling. Overall improved. Venous stasis dermatitis noted to the bilateral lower extremities. Neurological: Alert, oriented 3, no focal deficits. Psychiatric: normal affect, normal mood. Skin: Dry, intact, warm. Normal color. No rashes. No endocarditis stigmata noted. - Assessment and Plan (1) Sepsis Current Visit: Yes Status: Acute The patient had 2 sepsis criteria. Likely secondary to bacteremia and thrombophlebitis of the right upper extremity. Improved. WBC up a little today. He has been afebrile, but developed hypothermia overnight. Blood cultures drawn 03/10/19 are +2 out of 2 sets for MSSA. Repeat blood cultures drawn 03/12/19 are positive 2/2 sets. Repeat blood cultures drawn 03/14/19 are negative x 2 sets. Qualifiers: Sepsis type: methicillin susceptible Staphylococcus aureus Qualified Code(s): A41.01 - Sepsis due to Methicillin susceptible Staphylococcus aureus SNOMED Code(s): 37076094 (2) Bacteremia Current Visit: Yes Status: Resolved Causative organism: MSSA. Source: Likely right upper extremity thrombophlebitis. Blood cultures drawn 03/10/19 are +2 out of 2 sets for MSSA. Repeat blood cultures drawn 03/12/19 are positive 2/2 sets. Repeat blood cultures drawn 03/14/19 are negative x 2 sets. Uncomplicated. No endocarditis stigmata noted on exam. Transthoracic echocardiogram was suboptimal for evaluation of the valves. ILDA negative for endocarditis. Rheumatoid factor elevated. The patient has one major and 2 minor modified [place] criteria. Currently on IV Nafcillin. SNOMED Code(s): 2824293 (3) Superficial thrombophlebitis of right upper extremity Current Visit: Yes Status: Acute Location: Right upper extremity. Likely secondary to recent IV insertion. Venous Doppler study shows a superficial venous thrombosis in the right cephalic vein. Clinically improved. Currently on IV Nafcillin. SNOMED Code(s): 53543822889504852 (4) Pneumonia Current Visit: Yes Status: Acute Chest x-ray showed findings consistent with cardiomegaly with heart failure. CT abdomen and pelvis showed bibasilar infiltrate or atelectasis versus pneumonitis. The patient presented with dyspnea, but BNP elevated as well. Based on clinical picture, feel that the patient's symptoms are more likely related to CHF exacerbation and not PNA. UATs negative. MRSA screen negative. CT neck showed RUL consolidation and pulmonary vascular congestion. Currently on Levaquin. Qualifiers: Pneumonia type: due to unspecified organism Laterality: bilateral Lung location: lower lobe of lung Qualified Code(s): J18.1 - Lobar pneumonia, unspecified organism SNOMED Code(s): 303841320 (5) ZAC (acute kidney injury) Current Visit: Yes Status: Acute Likely secondary to sepsis. Continues to worsen. Nephrology consulted and following. Avoid nephrotoxins as able and dose-adjust antibiotics. SNOMED Code(s): 14194089, 74641311 (6) Transaminitis Current Visit: Yes Status: Acute Likely secondary to hepatic steatosis as noted on CT of the abdomen and pelvis and liver ultrasound. Repeat LFTs improved. Resolved. Abdominal exam benign. Consider outpatient GI referral. SNOMED Code(s): 835490665, 184221880 (7) CHF (congestive heart failure) Current Visit: No Status: Chronic Qualifiers: Heart failure type: unspecified Heart failure chronicity: unspecified Qualified Code(s): I50.9 - Heart failure, unspecified SNOMED Code(s): 51003897 (8) Type 2 diabetes mellitus Current Visit: Yes Status: Chronic Recommend aggressive glucose monitoring and control to promote wound healing and prevent re-infection. Management per the primary team. 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 Tolerating Zosyn without a problem. Tolerating nafcillin so far. SNOMED Code(s): 670284119881632 (11) Diarrhea Current Visit: Yes Status: Acute Per nursing, not mucousy or watery. One so far today. Low index of suspicion for C. diff at this point, but will monitor closely. If becomes mucousy/watery and has >3-4 stools in 24 hours, consider checking C diff. Continue probiotics. Qualifiers: Diarrhea type: unspecified type Qualified Code(s): R19.7 - Diarrhea, unspecified SNOMED Code(s): 99634389 - Recommendations Recommendations: ZAC management per the nephrology team. Bradycardia management per the cardiology team. Monitor stools closely. If diarrhea worsens, becomes mucousy/watery, and has >3- 4 stools per day, consider checking C. diff. Continue nafcillin 2 g IV every 4 hours (does not require dose-adjustment for ZAC). Continue probiotics. Discontinue Levaquin. Duration of treatment depends on the clinical picture, but likely 14 days of IV Nafcillin from the first set of negative blood cultures (treat through 03/27/19). Can transition to 12 grams IV Q24H via continuous IV infusion. Monitor renal function and dose adjust antibiotics. business services sales agent to assist with discharge planning. Discussed with nephrology. Will need tunneled PICC line placed prior to discharge. Will need weekly CBC, BUN/Cr. Will need weekly IV care per protocol. Consult Discharge Plan - Plan Referrals: Richard Tran DO [Primary Care Provider] - - Attending Attestation I have personally performed a face to face evaluation on this patient. I have reviewed and agree with the care plan. History and Exam by me shows: Assessment and plan 1.Sepsis 2.MSSA bacteremia 2 out of 2 sets positive 03/10/2019 source likely right upper extremity thrombophlebitis 3.Superficial thrombophlebitis right upper extremity from previous recent IV insertion site 4.Pneumonia causative organism not clear 5.CHF 6.Diabetes mellitus type 2 7.Bradycardia and hypothermia and the patient feels weak and tired etiology not clear Recommendations Continue nafcillin 2 g IV every 4 hours (does not require dose-adjustment for ZAC). Continue probiotics. Discontinue Levaquin. Duration of treatment depends on the clinical picture, but likely 14 days of IV Nafcillin from the first set of negative blood cultures (treat through 03/27/19). Can transition to 12 grams IV Q24H via continuous IV infusion.
--- NOTE | 2019-03-19 10:54 | Internal Med Progress Note ---
Hospitalist Progress Note - Encounter Date of Encounter: 03/19/19 Time of Encounter: 08:30 - Subjective Interval History: States that he has had 3 episodes of diarrhea this morning. Remains persistently bradycardic and was also mildly hypothermic this morning. Otherwise, no chest pain, abdominal pain, or N/V. - Exam Vitals: Temp Pulse Resp BP Pulse Ox 95.2 F L 43 20 125/54 96 03/19/19 07:04 03/19/19 07:04 03/19/19 07:04 03/19/19 07:04 03/19/19 07:04 Exam: General: Patient is alert, no acute distress, oriented x 3 Respiratory: Min bibasilar rales, unable to appreciate rhonchi/wheezes Cardiovascular: Regular rate and rhythm. s1 and s2 normal No clicks, rubs, gallops, or murmurs. Bilateral lower extremity edema up to his mid shins Abdomen: Abdomen is soft, nontender. Bowel sounds are present Musculoskeletal: No joint swelling or effusion Skin: warm, dry, intact. Cord-like mass felt on R elbow on the lateral aspect with resolving erythema Neuro: Alert oriented x 3 normal cranial nerves, no focal deficits - Assessment and Plan (1) Sepsis Current Visit: Yes Status: Acute Assessment and Plan: presented with fever, leukocytosis attributed to PNA and R UE thrombophlebitis but also noted to have MSSA bacteremia in both sets from 03/10 repeat culture 03/12 also grew MSSA in both sets. 03/14 ones are negative TTE and ILDA without any vegetation CT C-spine was done in view of L UE radicular pain; -ve for discitis or epidural abscess urine strep/legionella -ve ID input appreciated, abx switched to nafcillin and levaquin added. Will complete levaquin today (D7) and continue nafcillin through 03/27 tunneled PICC to be inserted prior to d/c new onset diarrhea today, will monitor stool output and decide on C. diff testing. Discussed with ID (2) ZAC (acute kidney injury) Current Visit: Yes Status: Acute Assessment and Plan: Cr continues to increase to 3.16 unfortunately CPK normal, urine eos 0, urine na/Cr 31.3/92. FeNA 0.5% retroperitoneal US unremarkable discussed with nephrology. Clinical situation still consistent with ATN from sepsis and bacteremia. Given his persistent hypoxia, started on diuresis with further increase in Cr. Will defer further diuretics to Nephro no indication for WEB MARKETING INTERN (3) Respiratory failure with hypoxia Current Visit: Yes Status: Acute Assessment and Plan: Due to pneumonia, abx as above however, pt is not able to be weaned off on O2 and started to develop LE edema concerning for fluid overload appreciate nephrology input, lasix resumed on 03/17 with increase in Cr. Will defer diuretics to Nephro. (4) PAF (paroxysmal atrial fibrillation) Current Visit: Yes Status: Chronic Assessment and Plan: INR was supratherapeutic at 10.5 on 03/15 -> after 5mg of Vit K, reversed to 2.1 INR 3.6, hold Coumadin today no evidence of bleeding, Hb stable at 11.5 pt remained bradycardic despite discontinuation of amiodarone and beta izabela. EKG initially showed aflutter with slow ventricular rate. Pt is also mildly hypothermic today repeat EKG, check TSH, cardiology consultation (5) Bacteremia Current Visit: Yes Status: Resolved Assessment and Plan: as above for sepsis 3rd set of blood cultures taken 03/14 negative (6) Diastolic CHF Current Visit: Yes Status: Acute Assessment and Plan: persistent hypoxia and worsening LE edema concerning for mild fluid overload restarted on lasix per nephrology (7) Pneumonia Current Visit: Yes Status: Acute Assessment and Plan: complete levaquin today (8) Superficial thrombophlebitis of right upper extremity Current Visit: Yes Status: Acute Assessment and Plan: warm compress (9) Type 2 diabetes mellitus Current Visit: Yes Status: Chronic Assessment and Plan: continue basal-bolus insulin, better controlled on increased dose of levemir (10) Morbid obesity with BMI of 50.0-59.9, adult Current Visit: No Status: Chronic Assessment and Plan: Lifestyle modifications emphasized (11) DVT prophylaxis Current Visit: No Status: Acute Assessment and Plan: supratherapeutic INR - Time Spent with Patient Total time spent is greater than 50% in coordination of care (as documented) at patient's floor/unit and/or counseling patient: Greater than 35 minutes Plan of Care Discussed with: patient (discussed with Nephrology and Cardiology) Internal Medicine: Result - Labs CBC & Chem 7: 03/19/19 04:16 03/19/19 04:16 Labs: Short CBC 03/19/19 Range/Units 04:16 WBC 12.7 H (4.3-11.1) K/mcL Hgb 11.5 L (12.9-16.9) g/dL Hct 38.6 (37.5-50.1) % Plt Count 388 (140-400) K/mcL BMP 03/19/19 04:16 Sodium 135 L Potassium 3.8 Chloride 98 Carbon Dioxide 29 BUN 78 H Creatinine 3.16 H Glucose 155 H Calcium 8.4 L - ABG Interpretation ABG results: PT/INR, D-dimer PT 41.0 Seconds (9.4-12.1) H 03/19/19 04:16 Consult Discharge Plan - Plan Referrals: Richard Tran DO [Primary Care Provider] - (1) Sepsis Qualifiers: Sepsis type: methicillin susceptible Staphylococcus aureus Qualified Code(s): A41.01 - Sepsis due to Methicillin susceptible Staphylococcus aureus (3) Respiratory failure with hypoxia Qualifiers: Chronicity: acute Qualified Code(s): J96.01 - Acute respiratory failure with hypoxia (6) Diastolic CHF Qualifiers: Heart failure chronicity: acute on chronic Qualified Code(s): I50.33 - Acute on chronic diastolic (congestive) heart failure (7) Pneumonia Qualifiers: Pneumonia type: due to unspecified organism Laterality: bilateral Lung location: lower lobe of lung Qualified Code(s): J18.1 - Lobar pneumonia, unspecified organism (9) Type 2 diabetes mellitus Qualifiers: Diabetes mellitus snf insulin use: with snf use Diabetes mellitus complication status: without complication Qualified Code(s): E11.9 - Type 2 diabetes mellitus without complications; 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
--- NOTE | 2019-03-19 11:36 | Cardiology Consult Note ---
Date of Encounter: 03/19/19 Time of Encounter: 11:35 Assessment and Plan (1) Atrial fibrillation with slow ventricular response Current Visit: Yes Status: Acute H/o atrial fibrillation s/p prior ablation on amiodarone and metoprolol on admission. Noted bradycardia since admission in setting of sepsis and ZAC. Amio and metoprolol held. HR remains low. Telemetry reviewed. Avg HR AVg 51 bpm. Min HR 41 bpm at 0703 am. Echocardiogram completed for bacteremia showed LVEF 55-60%. Mild tricuspid regurgitation. Mild aortic stenosis. The valves are not well visualized to rule out endocarditis. Please consider ILDA if clinically indicated. ILDA negative for endocarditis. Amiodarone has a long half life of 58 days. HR may improve over time. Agree with holding medication. No significant symptoms. Fatigue is non-specefic. Continue coumadin for AC. Goal INR 2-3. Monitor closely on levaquin. Supratherapeutic today. 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 (2) Bacteremia Current Visit: Yes Status: Resolved Sepsis, PNA, bacteremia. Managment per primary team. No vegitation on ILDA. Discussion w patient/family: The assessment and plan as outlined above was discussed with the patient and/or family members who expressed understanding and agreement. All questions were answered. Thank you for involving us in the care of your patient. Please call with any questions. History of Present Illness Consult date: 03/19/19 Requesting physician: Karthik Hernandez Consult reason: Bradycardia Chief complaint: Fatigue History of present illness: Mr. Cruz is a 69 year old male with past medical history of atrial fibrillation on coumadin, s/p ablation, DM type II, CKD, morbid obesity, and HTN. He is here with sepsis, PNA, bacteremia, and worsening ZAC. Cardiology consulted for bradycardia despite discontinuation of AV alin blockers. Patient follows with Dr. Casper (retail business development manager) in [place]. He was on amiodarone 200 mg daily and metoprolol 25 mg BID for rate control. His HR was documented to be as low as 43 bpm during this hospital stay. Medications discontinued on admission 03/10/19. Denies dizziness or lightheadedness. Denies chest pain or SOB. C/o feeling very fatigued. Past Med Surg Social Fam HX - Past Medical History Medical history: atrial fibrillation, CHF, diabetes, hyperlipidemia, hypertension Additional medical history: Thyroid issues, left thumb amputation Psychiatric history: no psych history - Past Surgical History Surgical History: cholecystectomy Additional surgical history: Evacuation of abd hematoma, left thumb revision, coardiac ablation. - Social History Smoking Status: Never smoker Smokeless Tobacco Status: No Alcohol use: none Drug use: none - Family History Mother Adopted: No Family Member Ethnicity: Non- Living Status: Hx Family Cardiac Disorders: Yes Hx Family Respiratory Disorders: Yes Hx Family Cancer: No Hx Family GI Disorders: No Hx Family Endocrine Disorder: No Hx Family Neuromuscular Disorders: No Hx Family Neurologic Disorders: No Hx Family HEENT Disorders: No Hx Family Autoimmune Disorders: No Father Living Status: Still Living Hx Family Cardiac Disorders: Yes Hx Family Respiratory Disorders: No Hx Family Cancer: No Hx Family GI Disorders: Yes Hx Family Endocrine Disorder: No Hx Family Neuromuscular Disorders: No Hx Family Neurologic Disorders: No Hx Family HEENT Disorders: No Hx Family Autoimmune Disorders: No Medications and Allergies Amiodarone [Cordarone] 200 mg PO DAILY 02/13/18 [History] Atorvastatin [Lipitor] 40 mg PO QAM 02/13/18 [History] Losartan Potassium [Cozaar] 100 mg PO DAILY 02/13/18 [History] Metoprolol [Lopressor] 25 mg PO BID 02/13/18 [History] Sertraline [Zoloft] 150 mg PO DAILY 02/13/18 [History] Warfarin [Coumadin] 3 mg PO SUMOWEFR 02/13/18 [History] Warfarin [Coumadin] 1.5 mg PO TUTHSA 03/01/19 [History] Fluticasone Propionate Nasal [Flonase] 1 spray PO DAILY PRN 03/03/19 [History] Levothyroxine [Synthroid] 100 mcg PO QAM 03/03/19 [History] Montelukast [Singulair] 10 mg PO QPM 03/03/19 [History] Furosemide [Lasix] 20 mg PO BID #60 tablet 03/04/19 [Rx] Insulin NPH Hum/Reg Insulin Hm [Novolin 70-30 100 Unit/ml Vial] 40 unit SQ QPM 03/11/19 [History] Insulin NPH Hum/Reg Insulin Hm [Novolin 70-30 100 Unit/ml Vial] 50 unit SQ QAM 07/15/19 [History] Metformin HCl 500 mg PO QPM 03/11/19 [History] Allergy/AdvReac Type Severity Reaction Status Date / Time cefazolin [From Ancef] Allergy Hives Verified 03/11/19 16:51 rosuvastatin [From Crestor] Allergy Hives Verified 03/11/19 16:51 Sulfa (Sulfonamide Allergy Hives Verified 03/11/19 16:51 Antibiotics) All Systems Review: The remainder of the systems were reviewed and are negative Physical Examination Vital Signs Temp Pulse Resp BP Pulse Ox 03/19/19 07:04 95.2 F L 43 20 125/54 96 03/19/19 04:06 97.9 F 46 18 155/70 95 03/18/19 23:15 98.3 F 52 18 127/60 96 03/18/19 19:16 97.4 F L 50 18 131/57 97 03/18/19 17:19 42 17 137/48 93 03/18/19 12:16 97.6 F 46 22 112/53 93 03/18/19 12:09 44 18 95 Intake and Output 03/18/19 03/19/19 03/19/19 23:59 07:59 15:59 Intake Total 200 / 660 200 / 300 100 / 300 Balance 200 / 660 200 / 300 100 / 300 Intake: IV Fluids 200 / 600 200 / 300 100 / 300 Nafcillin 2,000 MG In Dextrose 200 / 600 200 / 300 100 / 300 5% (Minibag+) 100 ML 100 ML @ 200 mls/hr IVPB Q4HR [facility] Rx#: [id number] Other: Stool Size Large Large Stool Consistency soft soft Stool Color Brown # Voids 1 1 # Bowel Movements 1 Weight 183.9 kg Blood Glucose* 182 138 Patient Weight 03/19/19 23:59 Weight 183.9 kg General: Conversant, No Apparent Distress HEENT: Atraumatic, Normocephaly, Mucus Membranes Moist Neck: No JVD, Normal carotid pulses Cardiac: Other (Irregular) Lungs: Normal Breath Sounds, No Wheeze, Rales, Rhonchi Neuro: Alert and responsive, No focal deficits noted Abdomen: Soft, Non-Tender Skin: No rashes noted on visualized skin Musculoskeletal: No Chest Wall Tenderness Extremities: No Clubbing, No Cyanosis, Other (BLE discolored, speider veins, reddish [place] to foot.) Results 03/19/19 04:16 03/19/19 04:16 Lab Results 03/19/19 03/19/19 03/19/19 04:16 04:16 04:16 WBC 12.7 H Hgb 11.5 L Hct 38.6 Plt Count 388 INR 3.6 Sodium 135 L Potassium 3.8 Chloride 98 Carbon Dioxide 29 BUN 78 H Creatinine 3.16 H Glucose 155 H Calcium 8.4 L - Imaging and Cardiology Echo: report reviewed - EKG Interpretation EKG results cardiology: personally reviewed Consult Discharge Plan - Plan Referrals: Richard Tran DO [Primary Care Provider] -
--- NOTE | 2019-03-19 22:23 | Event Note ---
Date of Encounter: 03/19/19 Time of Encounter: 22:17 Notified by nurse of patient and family requesting transfer to another facility as they feel he is not improving as he should. Discussed with patient and family at bedside who agree that there is no current acute change and we typically only transfer patients out at night that have some sort of acute change in condition. Informed them I can discuss with day team that they would like to discuss transfer out to [facility] tomorrow if possible and they are agreeable. Family also requested [facility] be contacted [facility] to see if they are [facility] or if there are beds available at their facility, called [facility] transfer center [phone] who advised they do c urrently have beds available but this is always subject to change. Updated patient and family that there are currently beds available at [facility] but that could change by morning, informed I will discuss with dayteam regarding their request for possible transfer in the a.m. and the patient and family are agreeable.
[2019-03-20] MEDS: Nafcillin 2,000 MG in D5% in Water (Mini-Bag+) 100 ML IVPB SCH ×3 (04:24→12:17)
[2019-03-20 04:39] LABS: Basophils # 0.1 K/mcL (0.0-0.2); Basophils % 0.7 %; Eosinophils # 0.2 K/mcL (0.0-0.6); Eosinophils % 1.4 %; Hematocrit 37.8 % (37.5-50.1); Hemoglobin 11.1 g/dL (12.9-16.9); Immature Granulocytes % 3.4 % (0-4); Lymphocytes # 0.5 K/mcL (0.6-4.6); Lymphocytes % 4.7 %; Mean Corpuscular HGB Conc 29.4 g/dL (31.6-35.5); Mean Corpuscular Hemoglobin 24.7 pg (28.0-33.3); Mean Corpuscular Volume 84.2 fL (83.0-100.0); Mean Platelet Volume 8.8 fL (9.4-12.4); Monocytes # 0.7 K/mcL (0.0-1.3); Neutrophils # 9.1 K/mcL (1.6-8.9); Platelet Count 362 K/mcL (140-400); Red Blood Count 4.49 M/mcL (4.19-5.50); Red Cell Distribution Width 16.7 % (11.5-14.5); Segmented Neutrophils % 83.8 %; White Blood Count 10.9 K/mcL (4.3-11.1)
[2019-03-20 04:45] LABS: INR 3.4
[2019-03-20 04:53] LABS: Calcium 8.3 mg/dL (8.6-10.3); Potassium 3.7 mEq/L (3.5-5.1)
[2019-03-20] MEDS: Insulin LISPRO 300 UNITS/3 ML VIAL SQ SCH ×2 (08:17→11:35)
[2019-03-20] MEDS: Furosemide 20 MG/2 ML VIAL IVP SCH (08:26)
[2019-03-20] MEDS: Insulin DETEMIR 100 UNIT/ML X5UNITS SQ SCH (08:26)
[2019-03-20] MEDS: Lactobacillus 1 EACH CAP.SPRINK PO SCH (08:26)
--- NOTE | 2019-03-20 09:30 | Infectious Disease Progress No ---
ID Progress Note Date of Encounter: 03/20/19 Time of Encounter: 09:27 - Subjective Subjective: Patient seen and examined. No acute events noted overnight. Patient states he doesn't feel very well today. Denies chest or neck pain this morning. States he feels more short of breath this morning. Denies cough. Denies fevers, chills, or rigors. Denies any nausea, vomiting,or constipation. Reports diarrhea 3 times yesterday, but none so far today. Denies abdominal pain or urinary complaints. Denies oral thrush or skin rashes. States his appetite is poor today. Pending transfer to [facility] per patient request. - Objective CBC & Chem 7: 03/20/19 04:20 03/20/19 04:20 - Exam Vitals: Temp Pulse Resp BP Pulse Ox 97.0 F L 50 19 162/50 94 03/20/19 04:37 03/20/19 07:09 03/20/19 07:09 03/20/19 07:09 03/20/19 07:09 Exam: Head: Atraumatic, normal inspection, normocephalic. Eye: EOMI, PERRLA, no scleral icterus noted. No subconjunctival hemorrhage noted. ENT: Mucous membranes moist. No odontogenic infection noted. Neck: Normal inspection, no meningismus. Respiratory: Clear to auscultation. No rales, respiratory distress, rhonchi, or wheezes noted. Cardiovascular: Regular rate, irregular rhythm, S1 and S2 audible. No murmurs, rubs, or gallops. GI: Soft, obese, normal bowel sounds. Nontender Extremities:No joint swelling or tenderness noted. 1+ pitting edema noted to bilateral lower extremities. Right AC swelling/erythema resolved. Venous stasis dermatitis noted to the bilateral lower extremities. Neurological: Alert, oriented 3, no focal deficits. Psychiatric: normal affect, normal mood. Skin: Dry, intact, warm. Normal color. No rashes. No endocarditis stigmata noted. - Assessment and Plan (1) Sepsis Current Visit: Yes Status: Acute The patient had 2 sepsis criteria. Likely secondary to bacteremia and thrombophlebitis of the right upper extremity. Improved. WBC normal today. He has been afebrile. Hypothermia resolved. Blood cultures drawn 03/10/19 are +2 out of 2 sets for MSSA. Repeat blood cultures drawn 03/12/19 are positive 2/2 sets. Repeat blood cultures drawn 03/14/19 are negative x 2 sets. Qualifiers: Sepsis type: methicillin susceptible Staphylococcus aureus Qualified Code(s): A41.01 - Sepsis due to Methicillin susceptible Staphylococcus aureus SNOMED Code(s): 27653206 (2) Bacteremia Current Visit: Yes Status: Resolved Causative organism: MSSA. Source: Likely right upper extremity thrombophlebitis. Blood cultures drawn 03/10/19 are +2 out of 2 sets for MSSA. Repeat blood cultures drawn 03/12/19 are positive 2/2 sets. Repeat blood cultures drawn 03/14/19 are negative x 2 sets. Uncomplicated. No endocarditis stigmata noted on exam. Transthoracic echocardiogram was suboptimal for evaluation of the valves. ILDA negative for endocarditis. Rheumatoid factor elevated. The patient has one major and 2 minor modified Screven criteria. Currently on IV Nafcillin. SNOMED Code(s): 4434764 (3) Superficial thrombophlebitis of right upper extremity Current Visit: Yes Status: Acute Location: Right upper extremity. Likely secondary to recent IV insertion. Venous Doppler study shows a superficial venous thrombosis in the right cephalic vein. Resolved. Currently on IV Nafcillin. SNOMED Code(s): 84300421259349044 (4) Pneumonia Current Visit: Yes Status: Acute Chest x-ray showed findings consistent with cardiomegaly with heart failure. CT abdomen and pelvis showed bibasilar infiltrate or atelectasis versus pneumonitis. The patient presented with dyspnea, but BNP elevated as well. Based on clinical picture, feel that the patient's symptoms are more likely related to CHF exacerbation and not PNA. UATs negative. MRSA screen negative. CT neck showed RUL consolidation and pulmonary vascular congestion. Completed 6 days of Levaquin. Qualifiers: Pneumonia type: due to unspecified organism Laterality: bilateral Lung location: lower lobe of lung Qualified Code(s): J18.1 - Lobar pneumonia, unspecified organism SNOMED Code(s): 042182815 (5) ZAC (acute kidney injury) Current Visit: Yes Status: Acute Likely secondary to sepsis. Continues to worsen. Urine output 375ml yesterday. Nephrology consulted and following. Avoid nephrotoxins as able and dose-adjust antibiotics. SNOMED Code(s): 71191549, 85503549 (6) Transaminitis Current Visit: Yes Status: Resolved Likely secondary to hepatic steatosis as noted on CT of the abdomen and pelvis and liver ultrasound. Repeat LFTs improved. Resolved. Abdominal exam benign. Consider outpatient GI referral. SNOMED Code(s): 942902676, 620215520 (7) CHF (congestive heart failure) Current Visit: No Status: Chronic Qualifiers: Heart failure type: unspecified Heart failure chronicity: unspecified Qualified Code(s): I50.9 - Heart failure, unspecified SNOMED Code(s): 32093680 (8) Type 2 diabetes mellitus Current Visit: Yes Status: Chronic Recommend aggressive glucose monitoring and control to promote wound healing and prevent re-infection. Management per the primary team. Qualifiers: Diabetes mellitus terminal manager insulin use: with retirement use Diabetes mellitus complication status: without complication Qualified Code(s): E11.9 - Type 2 diabetes mellitus without complications; Z79.4 - MCFP (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 SNOMED Code(s): 71666120 (9) Morbid obesity with BMI of 50.0-59.9, adult Current Visit: No Status: Chronic SNOMED Code(s): 453820554, 60544047795888 (10) Drug allergy, antibiotic Current Visit: Yes Status: Acute Reports hives when he has taken cefazolin in the past. Tolerated Zosyn without a problem. Tolerating nafcillin so far. SNOMED Code(s): 427486908575681 (11) Diarrhea Current Visit: Yes Status: Acute Per nursing, not mucousy or watery. None so far today. Low index of suspicion for C. diff at this point, but will monitor closely. If becomes mucousy/watery and has >3-4 stools in 24 hours, consider checking C diff. Continue probiotics. Qualifiers: Diarrhea type: unspecified type Qualified Code(s): R19.7 - Diarrhea, unspecified SNOMED Code(s): 97845145 - Recommendations Recommendations: ZAC management per the nephrology team. Bradycardia management per the cardiology team. Consider repeating CXR vs. dedicated CT chest. Monitor stools closely. If diarrhea worsens, becomes mucousy/watery, and has >3- 4 stools per day, consider checking C. diff. Continue nafcillin 2 g IV every 4 hours (does not require dose-adjustment for ZAC). Continue probiotics. Duration of treatment depends on the clinical picture, but likely 14 days of IV Nafcillin from the first set of negative blood cultures (treat through 03/27/19). Can transition to 12 grams IV Q24H via continuous IV infusion. Monitor renal function and dose adjust antibiotics. adoption services manager to assist with discharge planning. Discussed with nephrology. Will need tunneled PICC line placed prior to discharge. Will need weekly CBC, BUN/Cr. Will need weekly IV care per protocol. Consult Discharge Plan - Plan Referrals: Richard Tran DO [Primary Care Provider] -
[2019-03-20 10:04] VITALS: BP 120/63
--- NOTE | 2019-03-20 12:21 | Nephrology Progress Note ---
Date of Encounter: 03/20/19 Time of Encounter: 10:40 - Assessment and Plan (1) ZAC (acute kidney injury) Current Visit: Yes Status: Acute Nonoliguric acute kidney injury most likely secondary to ATN in the setting of sepsis/bacteremia. He is now developing vague uremic symptoms including nausea, lost appetite, and with worsening hypervolemic volume status, I offered to initiate renal replacement therapy today. It turns out, the patient has already requested and a transfer to [facility] has already been arranged. I met with the patient's family including his daughter who was at home hemodialysis nurse [facility] in [place], [place], who I know well, and the patient's . They thanked me for my time and efforts, and said that if he ends up being started on dialysis at [facility] and needs ongoing Renal care close to home that they would like the [facility] to be his ongoing medical underwriter. Volume status: edematous with diminished breath sounds: continue loop diuretics. Continue to follow a renal protective/conservative strategy by avoidance of nephrotoxic agents, strict I's and O's, renal dosing, daily weights and renal diet when able. 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 Consider a tunneled line, if possible. Discussed with ID earlier this week. (3) Superficial thrombophlebitis of right upper extremity Current Visit: Yes Status: Acute Likely contributed to his overall illness, bacteremia, and subsequent ATN. (4) CHF (congestive heart failure) Current Visit: No Status: Chronic Noted, and see above. Qualifiers: Heart failure type: unspecified Heart failure chronicity: unspecified Qualified Code(s): I50.9 - Heart failure, unspecified (5) Morbid obesity with BMI of 50.0-59.9, adult Current Visit: No Status: Chronic Chronic, and I recommend lifestyle modifications. Subjective Principal diagnosis: ZAC Interval history: The patient was seen and examined earlier today; and, he reported more abdominal discomfort, lost appetite, and feelings of nausea. He voiced that he has not had diarrhea or vomiting. He feels very fatigued as well, which is worsening. He feels swollen around his face even, he said. Objective - Vital Signs Vital signs: Vital Signs Temp Pulse Resp BP Pulse Ox 03/20/19 10:01 96.5 F L 47 19 120/63 90 03/20/19 07:09 50 19 162/50 94 03/20/19 04:37 97.0 F L 52 18 163/69 96 03/20/19 00:13 96.9 F L 45 18 140/56 96 03/19/19 19:10 97.5 F L 67 20 146/69 97 03/19/19 15:50 96.0 F L 45 14 129/68 93 03/19/19 15:26 96 03/19/19 12:33 96.1 F L 48 16 159/66 96 Intake and Output 03/19/19 03/20/19 03/20/19 23:59 07:59 15:59 Intake Total 200 / 1080 200 / 300 100 / 300 Output Total 375 / 375 275 / 275 0 / 275 Balance -175 / 705 -75 / 25 100 / 25 Intake: IV Fluids 200 / 900 200 / 300 100 / 300 Nafcillin 2,000 MG In Dextrose 200 / 600 200 / 300 100 / 300 5% (Minibag+) 100 ML 100 ML @ 200 mls/hr IVPB Q4HR [facility] Rx#: [id number] Oral 0 / 180 0 / 0 Output: Urine 375 / 375 275 / 275 0 / 275 Other: Stool Size Large Moderate Moderate Stool Consistency soft soft soft Stool Characteristics Mak[place] Stool Color Brown Brown Brown # Voids 1 # Bowel Movements 1 1 Weight 181.4 kg Blood Glucose* 115 107 117 Patient Weight 03/20/19 23:59 Weight 181.4 kg - General Appearance General appearance: Present: well-developed, well-nourished, obese, fatigue EENT: Present: ATNC, PERRL, mucous membranes moist Neck: Present: JVD, supple Respiratory: Present: no kyphosis, clear Cardiology: Present: mid-systolic murmur, edema (1-2+ pretibial pitting edema up to his thighs bilaterally), regular rate, regular rhythm, normal S1, normal S2 Gastrointestinal: Present: normoactive bowel sounds, no tenderness, no guarding, obese Integumentary: Present: hyperpigmentation, chronic venous stasis Neurologic: Present: no focal deficit, no asterixis, alert and oriented x3 Musculoskeletal: Present: no erythema, no cyanosis, no clubbing Psychiatric: Present: mood/affect appropriate, cooperative - Lab 03/20/19 04:20 03/20/19 04:20 Most recent lab results 03/20/19 04:20 Calcium 8.3 L Consult Discharge Plan - Plan Referrals: Richard Tran DO [Primary Care Provider] -
--- NOTE | 2019-03-20 12:53 | Electrocardiograph Report ---
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
--- NOTE | 2019-03-20 13:19 | Discharge Summary ---
- NOTES TO OUTPATIENT PROVIDER Notes to Outpatient Provider: MSSA bacteremia, continue nafcillin Orders not resulted at time of discharge: Pending orders 03/19/19 04:16 Thyroid Stimulating Hormone Routine 03/19/19 12:13 ECG mobile hall monitor 2wk [ECG] Routine 03/21/19 04:00 Basic Metabolic Panel AM 0400 CBC [Complete Blood Count] [HEME] AM 0400 PT/INR [Prothrombin Time INR] [COAG] AM 0400 03/22/19 04:00 Basic Metabolic Panel AM 0400 CBC [Complete Blood Count] [HEME] AM 0400 PT/INR [Prothrombin Time INR] [COAG] AM 0400 03/23/19 04:00 PT/INR [Prothrombin Time INR] [COAG] AM 0400 Date of Encounter: 03/20/19 Time of Encounter: 10:30 - Discharge Diagnosis (1) Type 2 diabetes mellitus Priority: Secondary Status: Chronic Qualifiers: Diabetes mellitus mcc insulin use: 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 Diabetes mellitus complication status: without complication Qualified Code(s): E11.9 - Type 2 diabetes mellitus without complications; Z79.4 - 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 accountant (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 (2) Morbid obesity with BMI of 50.0-59.9, adult Priority: Secondary Status: Chronic (3) DVT prophylaxis Priority: Secondary Status: Acute (4) Diastolic CHF Priority: Secondary Status: Acute Qualifiers: Heart failure chronicity: acute on chronic Qualified Code(s): I50.33 - Acute on chronic diastolic (congestive) heart failure (5) PAF (paroxysmal atrial fibrillation) Priority: Secondary Status: Chronic (6) Pneumonia Priority: Secondary Status: Acute Qualifiers: Pneumonia type: due to unspecified organism Laterality: bilateral Lung location: lower lobe of lung Qualified Code(s): J18.1 - Lobar pneumonia, unspecified organism (7) Superficial thrombophlebitis of right upper extremity Priority: Secondary Status: Acute (8) Bacteremia Priority: Secondary Status: Resolved (9) Sepsis Priority: Primary Status: Acute Qualifiers: Sepsis type: methicillin susceptible Staphylococcus aureus Qualified Code(s): A41.01 - Sepsis due to Methicillin susceptible Staphylococcus aureus (10) ZAC (acute kidney injury) Priority: Secondary Status: Acute (11) Respiratory failure with hypoxia Priority: Secondary Status: Acute Qualifiers: Chronicity: acute Qualified Code(s): J96.01 - Acute respiratory failure with hypoxia Hospital course: Mr. Cruz is a 69 year old male with a past medical history significant for atrial fibrillation, diabetes mellitus, morbid obesity, admitted for sepsis secondary to pneumonia, right upper extremity thrombophlebitis, diagnosed with MSSA bacteremia, currently on Nafcilin. ILDA was done for persistent bacteremia but negative for any vegetations. The patient was improving but then developed worsening kidney functions from 03/15. Nephrology was consulted, Lasix was resumed due to fluid overload butpatient creatinine continued to get worse and the patient got more swelling. 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 Patient was also getting bradycardic which was likely secondary to amiodarone. No further interventions are planned from the cardiology standpoint. Pt HR is stable at this point. Overnight, patient expressed her wishes to go to [facility] because he normally sees his doctors there. Discussed in detail in the morning with the patient regarding his wishes to transfer to another hospital and the patient is adamant about going to [place]. Transfer call was placed and the patient is being transferred to [place] for further management. Patient to be continued on nafcillin for MSSA bacteremia. Further management as per [facility]. -Pt is stable at the time of discharge. - Time Spent with Patient Total time spent providing and/or coordinating discharge services: - Discharge Medications Prescriptions: Continued RX: Sertraline [Zoloft] 150 mg PO DAILY RX: Metoprolol [Lopressor] 25 mg PO BID RX: Losartan Potassium [Cozaar] 100 mg PO DAILY RX: Warfarin [Coumadin] 3 mg PO SUMOWEFR RX: Atorvastatin [Lipitor] 40 mg PO QAM RX: Amiodarone [Cordarone] 200 mg PO DAILY RX: Warfarin [Coumadin] 1.5 mg PO TUTHSA RX: Fluticasone Propionate Nasal [Flonase] 1 spray PO DAILY PRN PRN Reason: Allergy Symptoms RX: Levothyroxine [Synthroid] 100 mcg PO QAM RX: Montelukast [Singulair] 10 mg PO QPM RX: Furosemide [Lasix] 20 mg PO BID #60 tablet RX: Metformin HCl 500 mg PO QPM RX: Insulin NPH Hum/Reg Insulin Hm [Novolin 70-30 100 Unit/ml Vial] 50 unit SQ QAM RX: Insulin NPH Hum/Reg Insulin Hm [Novolin 70-30 100 Unit/ml Vial] 40 unit SQ QPM Home Medications: Amiodarone [Cordarone] 200 mg PO DAILY 02/13/18 [History] Atorvastatin [Lipitor] 40 mg PO QAM 02/13/18 [History] Losartan Potassium [Cozaar] 100 mg PO DAILY 02/13/18 [History] Metoprolol [Lopressor] 25 mg PO BID 02/13/18 [History] Sertraline [Zoloft] 150 mg PO DAILY 02/13/18 [History] Warfarin [Coumadin] 3 mg PO SUMOWEFR 02/13/18 [History] Warfarin [Coumadin] 1.5 mg PO TUTHSA 03/01/19 [History] Fluticasone Propionate Nasal [Flonase] 1 spray PO DAILY PRN 03/03/19 [History] Levothyroxine [Synthroid] 100 mcg PO QAM 03/03/19 [History] Montelukast [Singulair] 10 mg PO QPM 03/03/19 [History] Furosemide [Lasix] 20 mg PO BID #60 tablet 03/04/19 [Rx] Insulin NPH Hum/Reg Insulin Hm [Novolin 70-30 100 Unit/ml Vial] 40 unit SQ QPM 03/11/19 [History] Insulin NPH Hum/Reg Insulin Hm [Novolin 70-30 100 Unit/ml Vial] 50 unit SQ QAM 03/11/19 [History] Metformin HCl 500 mg PO QPM 03/11/19 [History] Nafcillin in Dextrose,Iso-Osm [Nafcillin 2 gm/ 100 ml Inj] 2 gm IV Q4H #30 [id number] 03/20/19 [Rx] Allergies/Adverse Reactions: Allergy/AdvReac Type Severity Reaction Status Date / Time cefazolin [From Ancef] Allergy Hives Verified 03/11/19 16:51 rosuvastatin [From Crestor] Allergy Hives Verified 03/11/19 16:51 Sulfa (Sulfonamide Allergy Hives Verified 03/11/19 16:51 Antibiotics) Date of admission: 03/11/19 14:35 Primary care physician: Richard Tran DO Consults: 03/11/19 09:14 Consult to Nurse Navigator [CONS] Routine Comment: pn, chf 03/11/19 11:12 Consult to Invasive Line Access Team [CONS] Routine Reason for Consult: limited IV access; need second IV access for non- compatible antibiotics; Line Type: EPIV 03/13/19 11:26 Consult to Infectious Diseases [CONS] Routine Consulting Provider: [facility] [place] Reason for Consult: MSSA bacteremia, sepsis with PNA and RUE thrombophlebitis Call Completed: Yes 03/15/19 10:22 Consult to Nephrology [CONS] Routine Consulting Provider: [facility] [place]/ISABELLA/MARSHALL/LINCOLN Reason for Consult: AoCKD Call Completed: Yes 03/19/19 09:51 Consult to Cardiology [CONS] Routine Comment: Consulting Provider: [facility] [place] Reason for Consult: persistent bradycardia despite discontinuation of bb and amiodarone Call Completed: Yes - Constitutional Vitals: Temp Pulse Resp BP Pulse Ox 96.5 F L 47 19 120/63 90 03/20/19 10:01 03/20/19 10:01 03/20/19 10:01 03/20/19 10:01 03/20/19 10:01 General appearance: Present: cooperative, A&O X 3, pleasant, no acute distress, answers questions appropriately Exam: General: Patient is alert, no acute distress, oriented x 3 Respiratory: Nromal breath sounds, no wheezing. Cardiovascular: Regular rate and rhythm. s1 and s2 normal No clicks, rubs, gallops, or murmurs. Bilateral lower extremity edema up to his mid shins Abdomen: Abdomen is soft, nontender. Bowel sounds are present Musculoskeletal: No joint swelling or effusion Skin: warm, dry, intact. Cord-like mass felt on R elbow on the lateral aspect with resolving erythema Neuro: Alert oriented x 3 normal cranial nerves, no focal deficits - Patient Status Disposition: Transfer Critical Access Hosp Condition: Undetermined Functional capacity at discharge: bed bound Overall status at discharge: patient is not back to baseline - Discharge Instructions Follow Up With: Richard Tran DO [Primary Care Provider] - - Diet and Activity Activity: increase activity as tolerated Diet: low salt diet
[2019-03-20] MEDS ORDERED: Warfarin perPT PO PRN (18:00)
[2019-03-21 10:11] LABS: Thyroid Stimulating Hormone 0.644 mcIU/mL (0.340-5.600)
== END 2019-03-20 13:43 | disposition critical access hospital (66) | DRG 871 ==
LOC: 2ANU 16:02 → EMEROOARM 16:02 → SUATTDRO 19:47 → 2ANU 20:45 → SUATTDRO 03-11 14:35
PROVIDERS: ADMIT Internal Medicine; ATTEND Internal Medicine